=== PATIENT | female | born 1960 | race Caucasian/White ===

== ENCOUNTER 2018-12-13 17:01 | Observation (INO) | payer BC ==
--- OUTSIDE RECORDS SUMMARY | 2018-12-13 17:03 | XMS REPORT | Clinical Summary ---
:1960 Author Organization [facility] Address [address] [place] [address] Care Team Providers Name Role Phone Unavailable Primary Care Provider Unavailable Allergies No Known Allergies Medications Medication Sig Dispensed Refills Start Date End Date Status lisinopril Take 20 mg by 0 Active (PRINIVIL,ZESTRIL) 20 MG mouth daily. tablet atorvastatin (LIPITOR) Take 20 mg by 0 Active 20 MG tablet mouth daily. Active Problems Problem Noted Date Chest pain 02/15/2018 Encounters Date Type Specialty Care Team Description 02/16/2018 Orders Only General Internal Medicine 02/15/2018 - Hospital Encounter Cardiology [place], Chest pain, unspecified type; 02/16/2018 Amaris Cameron, Essential hypertension; Hyperlipidemia, unspecified hyperlipidemia type after 12/12/2017 Family History Medical History Relation Name Comments Hypertension Mother Relation Name Status Comments Father Cardiomegaly Mother Social History Tobacco Use Types Packs/Day Years Used Date Never Smoker Smokeless Tobacco: Never Used Alcohol Use Drinks/Week oz/Week Comments Yes 2-3 cans of beer a day Sex Assigned at Date Recorded Not on file Job Start Date Occupation Industry Not on file Not on file Not on file Travel History Travel Start Travel End No recent travel history available. Last Filed Vital Signs Vital Sign Reading Time Taken Blood Pressure 123/75 02/16/2018 5:07 PM [employer] Pulse 80 02/16/2018 5:07 PM [employer] Temperature 36.4 C (97.5 F) 02/16/2018 5:07 PM [employer] Respiratory Rate 18 02/16/2018 5:07 PM [employer] Oxygen Saturation 98% 02/16/2018 5:07 PM [employer] Inhaled Oxygen Concentration - - Weight 68.3 kg (150 lb 8 oz) 02/16/2018 7:49 AM [employer] Height 162.6 cm (5' 4") 02/16/2018 4:00 PM [employer] Body Mass Index 25.83 02/16/2018 7:49 AM [employer] Plan of Treatment Not on file Procedures Procedure Name Priority Date/Time Associated Comments Diagnosis RHYTHM STRIP - SCAN 07/27/2018 3:21 PM CDT REPORT OF PROCEDURE - 02/17/2018 1:10 ENDOSCOPY SCAN PM [employer] RHYTHM STRIP - SCAN 02/17/2018 1:10 PM [employer] ECHOCARDIOGRAM REPORT - 02/17/2018 10:50 SCAN AM [employer] ECHO W CONTRAST & LEONCIO 02/16/2018 4:07 Results for this DOPPLER PM [employer] procedure are in the results section. NM MYOCARDIAL PERFUSION Routine 02/16/2018 12:17 Results for this SPECT(TREADMILL) PM [employer] procedure are in the results section. TREADMILL Routine 02/16/2018 10:47 Results for this TOLERANCE(NON-NUCLEAR AM [employer] procedure are in TREADMILL) the results section. ECG 12-LEAD Routine 02/16/2018 10:47 Results for this AM [employer] procedure are in the results section. ECG 12-LEAD Routine 02/16/2018 10:47 AM [employer] Procedure Note - Interface, External Ris In - 02/16/2018 11:11 AM [employer] Ventricular Rate 75 BPM Atrial Rate 75 BPM P-R Interval 168 ms QRS Duration 86 ms Q-T Interval 392 ms QTC Calculation(Bazett) 437 ms P Cummings 55 degrees R Cummings 69 degrees T Cummings 65 degrees Normal sinus rhythm Normal ECG CBC W/PLT COUNT & AUTO Routine 02/16/2018 4:46 AM [employer] Results for this DIFFERENTIAL procedure are in the results section. TROPONIN I Routine 02/16/2018 4:46 AM [employer] CBC W/PLT COUNT & AUTO Routine 02/16/2018 4:46 AM [employer] Results for this DIFFERENTIAL procedure are in the results section. HEMOGLOBIN A1C Routine 02/16/2018 4:46 AM [employer] LIPID PANEL Routine 02/16/2018 4:46 AM [employer] BASIC METABOLIC PANEL (7) Routine 02/16/2018 4:46 AM [employer] POTASSIUM Routine 02/16/2018 12:30 AM [employer] TROPONIN I Routine 02/16/2018 12:30 AM [employer] SERVICER after 12/12/2017 Results RHYTHM STRIP - SCAN (07/27/2018 3:21 PM CDT)Only the most recent of2 resultswithin the time period is included. Narrative Performed At EKG-SCANNED (02/17/2018 1:10 PM [employer]) Narrative Performed At ECHOCARDIOGRAM REPORT - SCAN (02/17/2018 10:50 AM [employer] SERVICER) Narrative Performed At ECHO W CONTRAST & DOPPLER (02/16/2018 4:07 PM [employer] SERV[employer]) Ejection Fraction [facility] Specimen Narrative Performed At Transthoracic Echocardiography Report (TTE) [facility] Demographics Patient NameBENNETT,Date of Study 02/16/2018 PALLAVI Female Visit [id number] Room Number 1151 Number Date of 1960Referring Amaris Coughlin MD Physician 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 Clinical History HGB 13.5 HCT 39.2 % CP, HTN, HLD, PALPITATIONS Height: 64 inches Weight: 68.04 kg (150 lbs) BSA: 1.73 m^2 BMI: 25.75 kg/m^2 HR: 78 bpm BP: 112/74 mmHg Summary The left ventricle is chamber size (by vol index) is normal. Normal LV wall thickness. All of the LV segments contract normally . LVEF by Whaley's method of disk assessment is normal (>60%) . Normal diastolic function. No pericardial effusion is visualized. The estimated RA pressure by IVC dynamics 0-5mmHg . The right ventricular chamber size and systolic function are within normal limits. TV is not well visualized. No evidence of tricuspid regurgitation. Unable to estimate peak systolic PA pressure; inadequate TR velocity signal. Signature Findings Rhythm/BPRegular sinus rhythm during the exam. Left Ventricle The left ventricle is chamber size (by vol index) is normal. No rmal LV wall thickness. Al l of the LV segments contract normally . LV EF by Whaley's method of disk assessment is no rmal (>60%) . No rmal diastolic function. Left AtriumLA size is normal . Right VentricleThe right ventricular chamber size and systolic fu nction are within normal limits. Right Atrium RA size is normal. Aortic Valve Normal AoV structure. No evidence of aortic regurgitation. No evidence of aortic stenosis. Mitral Valve Mild MV leaflet thickening. No evidence of mitral regurgitation. Tricuspid ValveTV is not well visualized. No evidence of tricuspid regurgitation. Un able to estimate peak systolic PA pressure; in adequate TR velocity signal. Pulmonic Valve PV is not well visualized. A trace of pulmonary regurgitation. AortaAortic root size (SInus of Valsalva diameter) is no rmal . Pr oximal ascending aorta size is normal . PericardiumNo pericardial effusion is visualized. IVC/SVC/PA/PV/PleuralThe estimated RA pressure by IVC dynamics 0-5mmHg . Chambers/Structures Left Atrium LA Volume: 39.44 ml LA Area: 13.85 cm^2 LA Vol. Index: 23 ml/m^2 Left Ventricle LVIDd: 3.51 cm LVIDs: 1.9 cm LV Septum Diastolic: 1.1 cm LV PW Diastolic: 1.01 cm LV FS: 45.9 % LVEDV Whaley's:56.28 ml LVESV Whaley's:18.56 ml LVEDVI: 33 ml/m^2 LVEF Hwaley's: 67 % LVESVI: 11 ml/m^2 LVOT Diameter: 2.04 cm Doppler/Quantitative Measurements Mitral Valve MV Peak E-Wave: 0.74 m/sMV Peak A-Wave: 0.7 m/s E/A Ratio: 1.07 Peak Gradient: 2.21 mmHg MV Konstantin. Peak: Tissue Doppler E' Lateral Velocity: 0.12 m/s E/E': 6.31 Aortic Valve Peak Velocity: 1.16 m/sMean Velocity: 0.74 m/s Peak Gradient: 5.36 mmHg Mean Gradient: 2.51 mmHg AV Area (continuity): 3.41 cm^2 AV VTI: 17.35 cm AV DVI: 1.04 LVOT Peak Velocity: 1.03 m/s Peak Gradient: 4.23 mmHg Mean Velocity: 0.69 m/s Mean Gradient: 2.19 mmHg LVOT Diameter: 2.04 cmLVOT VTI: 18.13 cm LVOT Area: 3.27 cm^2LVOT SV:59.23 ml LVOT CO: 4.62 l/min LVOT CI: 2.67 l/min/m^2 Procedure Note Interface, External Ris In - 02/17/2018 10:17 AM [employer] Transthoracic Echocardiography Report (TTE) Demographics Patient Name TOMER, Date of Study 02/16/2018 PALLAVI Gender Female Visit Number [id number] Race Room Number 1151 Number Date of 1960 Referring Amaris Coughlin MD Physician 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 Clinical History HGB 13.5 HCT 39.2 % CP, HTN, HLD, PALPITATIONS Height: 64 inches Weight: 68.04 kg (150 lbs) BSA: 1.73 m^2 BMI: 25.75 kg/m^2 HR: 78 bpm BP: 112/74 mmHg Summary The left ventricle is chamber size (by vol index) is normal. Normal LV wall thickness. All of the LV segments contract normally . LVEF by Whaley's method of disk assessment is normal (>60%) . Normal diastolic function. No pericardial effusion is visualized. The estimated RA pressure by IVC dynamics 0-5mmHg . The right ventricular chamber size and systolic function are within normal limits. TV is not well visualized. No evidence of tricuspid regurgitation. Unable to estimate peak systolic PA pressure; inadequate TR velocity signal. Signature Findings Rhythm/BP Regular sinus rhythm during the exam. Left Ventricle The left ventricle is chamber size (by vol index) is normal. Normal LV wall thickness. All of the LV segments contract normally . LVEF by Whaley's method of disk assessment is normal (>60%) . Normal diastolic function. Left Atrium LA size is normal . Right Ventricle The right ventricular chamber size and systolic function are within normal limits. Right Atrium RA size is normal. Aortic Valve Normal AoV structure. No evidence of aortic regurgitation. No evidence of aortic stenosis. Mitral Valve Mild MV leaflet thickening. No evidence of mitral regurgitation. Tricuspid Valve TV is not well visualized. No evidence of tricuspid regurgitation. Unable to estimate peak systolic PA pressure; inadequate TR velocity signal. Pulmonic Valve PV is not well visualized. A trace of pulmonary regurgitation. Aorta Aortic root size (SInus of Valsalva diameter) is normal . Proximal ascending aorta size is normal . Pericardium No pericardial effusion is visualized. IVC/SVC/PA/PV/Pleural The estimated RA pressure by IVC dynamics 0-5mmHg . Chambers/Structures Left Atrium LA Volume: 39.44 ml LA Area: 13.85 cm^2 LA Vol. Index: 23 ml/m^2 Left Ventricle LVIDd: 3.51 cm LVIDs: 1.9 cm LV Septum Diastolic: 1.1 cm LV PW Diastolic: 1.01 cm LV FS: 45.9 % LVEDV Whaley's:56.28 ml LVESV Whaley's:18.56 ml LVEDVI: 33 ml/m^2 LVEF Whaley's: 67 % LVESVI: 11 ml/m^2 LVOT Diameter: 2.04 cm Doppler/Quantitative Measurements Mitral Valve MV Peak E-Wave: 0.74 m/s MV Peak A-Wave: 0.7 m/s E/A Ratio: 1.07 Peak Gradient: 2.21 mmHg MV Konstantin. Peak: Tissue Doppler E' Lateral Velocity: 0.12 m/s E/E': 6.31 Aortic Valve Peak Velocity: 1.16 m/s Mean Velocity: 0.74 m/s Peak Gradient: 5.36 mmHg Mean Gradient: 2.51 mmHg AV Area (continuity): 3.41 cm^2 AV VTI: 17.35 cm AV DVI: 1.04 LVOT Peak Velocity: 1.03 m/s Peak Gradient: 4.23 mmHg Mean Velocity: 0.69 m/s Mean Gradient: 2.19 mmHg LVOT Diameter: 2.04 cm LVOT VTI: 18.13 cm LVOT Area: 3.27 cm^2 LVOT SV:59.23 ml LVOT CO: 4.62 l/min LVOT CI: 2.67 l/min/m^2 Performing Organization Address City/State/Zipcode Phone Number [facility] myocardial perfusion SPECT(Treadmill) (02/16/2018 12:17 PM SE[employer]IC [employer]ANK SERVICER) Specimen Narrative Performed At FINAL REPORT [employer] PROCEDURE: Rest/Stress MYOCARDIAL PERFUSION SPECT with treadmill\\XA9\\ CPT CODE: 57431 INDICATION:Chest pain, chronic, high probability of CAD HISTORY:Recent cardiac symptoms: Chest pain. Current cardiovascular-related medications: Atorvastatin, lisinopril. PROTOCOL:10.3 mCi of Tc-99m sestamibi was injected iv at rest, and SPECT (tomographic) images were obtained. Also, 32.8 mCi of Tc-99m sestamibi was injected iv approximately one minute prior to peak exercise, and gated SPECT images were obtained. PRELIMINARY STRESS TEST DATA FROM NONINVASIVE CARDIOLOGY: The patient exercised for 6 minutes 40 seconds using the Rell treadmill protocol. Heart rate was 76 beats/min at rest; peak heart rate was 173 beats/min (107% of MPHR). BP was 123/73 mmHg at rest; peak BP was 182/75 mmHg. Exercise was stopped for fatigue. The patient experienced no symptoms; treatment was not required. Preliminary ECG evaluation revealed sinus rhythm at rest and no ischemic changes with stress. (Final ECG interpretation and other stress and monitoring data are reported separately by Cardiology.) IMAGING FINDINGS: Study quality is adequate. Images obtained after rest and stress injections show normal LV activity. LV and RV volumes appear normal. Gated images obtained at rest and with stress show normal LV wall motion and thickening. LVEF at rest is greater than 70%. LVEF at stress is greater than 70%. IMPRESSION: 1. Normal study.2. Adequate exercise stress.3. Normal myocardial perfusion.4. Normal resting LV function. 5. Normal extracardiac tracer distribution.6. No previous [facility] study for comparison. Signed: Ina Simmons MD Report Verified Date/Time:02/16/2018 16:41:31 Reading Location: [place] [id number] Reading Room Procedure Note Interface, External Ris In - 02/16/2018 4:43 PM [employer] SERVICER FINAL REPORT PROCEDURE: Rest/Stress MYOCARDIAL PERFUSION SPECT with treadmill\\XA9\\ CPT CODE: 20171 INDICATION: Chest pain, chronic, high probability of CAD HISTORY: Recent cardiac symptoms: Chest pain. Current cardiovascular-related medications: Atorvastatin, lisinopril. PROTOCOL: 10.3 mCi of Tc-99m sestamibi was injected iv at rest, and SPECT (tomographic) images were obtained. Also, 32.8 mCi of Tc-99m sestamibi was injected iv approximately one minute prior to peak exercise, and gated SPECT images were obtained. PRELIMINARY STRESS TEST DATA FROM NONINVASIVE CARDIOLOGY: The patient exercised for 6 minutes 40 seconds using the Rell treadmill protocol. Heart rate was 76 beats/min at rest; peak heart rate was 173 beats/min (107% of MPHR). BP was 123/73 mmHg at rest; peak BP was 182/75 mmHg. Exercise was stopped for fatigue. The patient experienced no symptoms; treatment was not required. Preliminary ECG evaluation revealed sinus rhythm at rest and no ischemic changes with stress. (Final ECG interpretation and other stress and monitoring data are reported separately by Cardiology.) IMAGING FINDINGS: Study quality is adequate. Images obtained after rest and stress injections show normal LV activity. LV and RV volumes appear normal. Gated images obtained at rest and with stress show normal LV wall motion and thickening. LVEF at rest is greater than 70%. LVEF at stress is greater than 70%. IMPRESSION: 1. Normal study. 2. Adequate exercise stress. 3. Normal myocardial perfusion. 4. Normal resting LV function. 5. Normal extracardiac tracer distribution. 6. No previous [facility] study for comparison. Signed: Ina Simmons MD Report Verified Date/Time: 02/16/2018 16:41:31 Reading Location: [place] [id number] Reading Room Performing Organization Address City/State/Zipcode Phone Number GE RIS Treadmill tolerance(Non-Nuclear Treadmill) (02/16/2018 10:47 AM SE[employer] SERVICER) Specimen Narrative Performed At Protocol Name RELL GE MUSE Time In Exercise Phase 00:06:40 Max. Systolic BP 182 mmHg Max Diastolic BP 75 mmHg Max Heart Rate 173 BPM Max Predicted Heart Rate 161 BPM Reason For Termination Fatigue Reason for Test Chest Pain Target HR Formula (220 - Age)*100% Arrhythmias none Resting ECG Normal sinus rhythm ST Changes No Significant Changes Overall Impression No Evidence of Schemia Chest Pain none HR Response To Exercise appropriate BP Response To Exercise APPROPRIATE RESPONSE Functional Capacity Good-based on age-adjusted MET level achieved Lisinopril, Atervastatin Confirmed by fellow Dot Cabrera ([id number]) on 02/16/2018 11:27:15 AM Confirmed by MD LOPEZ YOCHAI ([id number]) on 02/28/2018 12:55:15 PM Procedure Note Interface, External Ris In - 02/28/2018 12:55 PM [employer]ICER Protocol Name RELL Time In Exercise Phase 00:06:40 Max. Systolic BP 182 mmHg Max Diastolic BP 75 mmHg Max Heart Rate 173 BPM Max Predicted Heart Rate 161 BPM Reason For Termination Fatigue Reason for Test Chest Pain Target HR Formula (220 - Age)*100% Arrhythmias none Resting ECG Normal sinus rhythm ST Changes No Significant Changes Overall Impression No Evidence of Schemia Chest Pain none HR Response To Exercise appropriate BP Response To Exercise APPROPRIATE RESPONSE Functional Capacity Good-based on age-adjusted MET level achieved Lisinopril, Atervastatin Confirmed by fellow Dot Cabrera ([id number]) on 02/16/2018 11:27:15 AM Confirmed by MD LOPEZ YOCHAI ([id number]) on 02/28/2018 12:55:15 PM Performing Organization Address [facility] Phone Number GE MUSE ECG 12 lead (02/16/2018 10:47 AM SE[employer]IC [employer] SERVICER) Specimen Narrative Performed At Ventricular Rate 75 BPM GE MUSE Atrial Rate 75 BPM P-R Interval 168 ms QRS Duration 86 ms Q-T Interval 392 ms QTC Calculation(Bazett) 437 ms P Cummings 55 degrees R Cummings 69 degrees T Cummings 65 degrees Normal sinus rhythm Normal ECG Confirmed by MD BLANCA, IHAB ([id number]) on 02/17/2018 6:13:32 AM Procedure Note Interface, External Ris In - 02/17/2018 6:13 AM SE[employer] T[employer] SERVICER Ventricular Rate 75 BPM Atrial Rate 75 BPM P-R Interval 168 ms QRS Duration 86 ms Q-T Interval 392 ms QTC Calculation(Bazett) 437 ms P Cummings 55 degrees R Cummings 69 degrees T Cummings 65 degrees Normal sinus rhythm Normal ECG Confirmed by MD BLANCA, IHAB ([id number]) on 02/17/2018 6:13:32 AM Performing Organization Address [facility] Phone Number GE MUSE CBC with platelet count + automated diff (02/16/2018 4:46 AM SE[employer]IC TANK SERVICER) WBC 6.8 3.5 - 10.5 K/L [facility] RBC 4.24 3.93 - 5.22 M/L [facility] Hemoglobin 13.5 11.2 - 15.7 GM/DL [facility] Hematocrit 39.2 34.1 - 44.9 % [facility] MCV 92.5 79.4 - 94.8 fL [facility] MCH 31.8 25.6 - 32.2 pg [facility] MCHC 34.4 32.2 - 35.5 GM/DL [facility] RDW 11.4 (L) 11.7 - 14.4 % [facility] Platelets 248 150 - 450 K/CU MM [facility] MPV 10.6 9.4 - 12.3 fL [facility] nRBC 0 0 - 0 /100 WBC [facility] % Neutros 50 % [facility] % Lymphs 39 % [facility] % Monos 8 % [facility] % Eos 2 % [facility] % Baso 0 % [facility] # Neutros 3.37 1.56 - 6.13 K/L [facility] # Lymphs 2.66 1.18 - 3.74 K/L [facility] # Monos 0.56 (H) 0.24 - 0.36 K/L [facility] # Eos 0.11 0.04 - 0.36 K/L [facility] # Baso 0.03 0.01 - 0.08 K/L [facility] Immature Granulocytes-Relative 0 0 - 1 % [facility] Specimen Blood Performing Organization Address City/[facility] Phone Number [address] [address] [place] Troponin I (02/16/2018 4:46 AM SE[employer]IC TANK SERVICER)Only the most recent of2 resultswithin the time period is included. Troponin I <0.01 0.00 - 0.03 ng/mL [facility] Specimen Blood Performing Organization Address City/State/Zipcode Phone Number [address] [address] [phone] CENTER Hemoglobin A1c (02/16/2018 4:46 AM SE[employer]IC TANK SERVICER) Hemoglobin A1C 5.3 4.3 - 6.1 % [facility] Specimen Blood Performing Organization Address City/[facility]/Zipcode Phone Number [address] [address] [place] Lipid panel (02/16/2018 4:46 AM SE[employer]IC TANK SERVICER) Triglycerides 147 mg/dL [facility] Cholesterol 181 mg/dL [facility] HDL 33 mg/dL [facility] LDL Calculated 119 mg/dL [facility] Specimen Blood Narrative Performed At Triglyceride Reference Range: [facility] Low Risk <150 [id number] High Risk 200-499 Very High Risk>=500 Cholesterol Reference Range: Low Risk <200 [id number] High Risk>240 HDL Cholesterol Reference Range: Low Risk >=60 High Risk <40 LDL Cholesterol Reference Range: Optimal<100 Near [id number] Very High >=190 Performing Organization Address City/[facility] Phone Number [address] [address] CENTER Basic metabolic panel (02/16/2018 4:46 AM SE[employer]IC TANK SERVICER) Sodium 137 136 - 145 meq/L [facility] Potassium 3.7 3.5 - 5.1 meq/L [facility] Chloride 105 98 - 107 meq/L [facility] CO2 23 22 - 29 meq/L [facility] BUN 14 7 - 21 mg/dL [facility] Creatinine 0.72 0.57 - 1.25 mg/dL [facility] Glucose 85 70 - 105 mg/dL [facility] Calcium 9.0 8.4 - 10.2 mg/dL [facility] EGFR 83Comment: ESTIMATED GFR IS mL/min/1.73 sq m [facility] NOT ACCURATE [facility] CLEARANCE IN PREDICTING GLOMERULAR FILTRATION RATE. ESTIMATED GFR IS NOT APPLICABLE FOR DIALYSIS PATIENTS. Specimen Blood Performing Organization Address City/State/Zipcode Phone Number [address] [address] [phone] CENTER Potassium (02/16/2018 12:30 AM SE[employer]IC TANK SERVICER) Potassium 3.5 3.5 - 5.1 meq/L [facility] CENTER Specimen Blood Performing Organization Address City/State/Zipcode Phone Number [facility] [address] [place] [address] CENTER after 12/12/2017 Insurance Payer Benefit Plan / Subscriber ID Type Phone Address Group BLUE CROSS/BLUE BCBS FED xxxxxxxxx PPO [phone] [address] [place] [address] [employer] - MGD CARE [employer] HMO POS xxxxxxxxxx HMO/POS QPOS Advance Directives For more information, please contact:[facility] [place] [address] [phone] Code Status Date Activated Date Inactivated Comments Full Code 02/15/2018 11:13 PM This code status was determined by: Patient
--- OUTSIDE RECORDS SUMMARY | 2018-12-13 17:04 | XMS REPORT ---
:1960 [facility] [address] [place] [address] Care Team Providers Name Role Phone JOHNNIE POSEY Unavailable Unavailable Problems This patient has no known problems. Allergies, Adverse Reactions, Alerts This patient has no known allergies or adverse reactions. Medications This patient has no known medications. Results Test Description Test Time Test Comments Text Results Atomic Results Result Comments [facility], 2018-02-16 Reason for FINAL REPORT PATIENT ID: MULTI, SPECT 16:41:00 exam:->Chest Pain [id number] PROCEDURE: Rest/Stress MYOCARDIAL PERFUSION SPECT with treadmill\XA9\ CPT CODE: 54931 INDICATION: Chest pain, chronic, high probability of [...] Normal extracardiac tracer distribution. 6. No previous [facility] study for comparison. Signed: Ina Curtis MDReport Verified Date/Time: 02/16/2018 16:41:31 Reading Location: [address] Reading Room GLOBIN A1C 2018-02-16 11:58:00 Test Item Value Reference Range Comments HEMOGLOBIN A1C (BEAKER) (test irvl=440) 5.3 % 4.3-6.1 LIPID [id number] 06:49:00 Test Item Value Reference Range Comments TRIGLYCERIDES (BEAKER) (test mtya=167) 147 mg/dL CHOLESTEROL (BEAKER) (test mklz=721) 181 mg/dL HDL CHOLESTEROL (BEAKER) (test mbwh=221) 33 mg/dL LDL CHOLESTEROL CALCULATED (BEAKER) (test 119 mg/dL mhra=983) Triglyceride Reference Range: Low Risk <150 Borderline 150- 199 High Risk 200-499 Very High Risk >=500Cholesterol Reference Range: Low Risk <200 Borderline 200-239 High Risk > 240HDL Cholesterol Reference Range: Low Risk >=60 High Risk <40LDL Cholesterol Reference Range: Optimal <100 Near Optimal 100-129 Borderline 130-159 High 160-189 Very High >=190BASI METABOLIC [id number] 06:49:00 Test Item Value Reference Range Comments SODIUM (BEAKER) (test 137 meq/L 136-145 pvkv=876) POTASSIUM (BEAKER) (test 3.7 meq/L 3.5-5.1 penr=450) CHLORIDE (BEAKER) (test 105 meq/L 98-107 clfc=261) CO2 (BEAKER) (test 23 meq/L 22-29 vpzw=447) BLOOD UREA NITROGEN 14 mg/dL 7-21 (BEAKER) (test ewqc=329) CREATININE (BEAKER) (test 0.72 mg/dL 0.57-1.25 vboj=016) GLUCOSE RANDOM (BEAKER) 85 mg/dL 70-105 (test hhfu=953) CALCIUM (BEAKER) (test 9.0 mg/dL 8.4-10.2 urku=278) EGFR (BEAKER) (test 83 mL/min/1.73 sq m ESTIMATED GFR IS NOT ysjp=2044) ACCURATE CREATININE CLEARANCE IN PREDICTING GLOMERULAR FILTRATION RATE. ESTIMATED GFR IS NOT APPLICABLE FOR DIALYSIS PATIENTS. TROPONIN [id number] 06:28:00 Test Item Value Reference Range Comments TROPONIN I (BEAKER) (test glaw=442) < ng/mL 0.00-0.03 CBC W/PLT COUNT & AUTO [id number] 05:34:00 Test Item Value Reference Range Comments WHITE BLOOD CELL COUNT (BEAKER) (test pqih=323) 6.8 K/ L 3.5-10.5 RED BLOOD CELL COUNT (BEAKER) (test vbik=049) 4.24 M/ L 3.93-5.22 HEMOGLOBIN (BEAKER) (test eqhq=371) 13.5 GM/DL 11.2-15.7 HEMATOCRIT (BEAKER) (test gyxh=291) 39.2 % 34.1-44.9 MEAN CORPUSCULAR VOLUME (BEAKER) (test mgie=754) 92.5 fL 79.4-94.8 MEAN CORPUSCULAR HEMOGLOBIN (BEAKER) (test 31.8 pg 25.6-32.2 cnnl=558) MEAN CORPUSCULAR HEMOGLOBIN CONC (BEAKER) (test 34.4 GM/DL 32.2-35.5 bdne=125) RED CELL DISTRIBUTION WIDTH (BEAKER) (test 11.4 % 11.7-14.4 fujb=314) PLATELET COUNT (BEAKER) (test rnih=774) 248 K/CU MM 150-450 MEAN PLATELET VOLUME (BEAKER) (test kmmh=558) 10.6 fL 9.4-12.3 NUCLEATED RED BLOOD CELLS (BEAKER) (test 0 /100 WBC 0-0 veqd=975) NEUTROPHILS RELATIVE PERCENT (BEAKER) (test 50 % dnyc=787) LYMPHOCYTES RELATIVE PERCENT (BEAKER) (test 39 % ffcb=997) MONOCYTES RELATIVE PERCENT (BEAKER) (test 8 % zrwk=974) EOSINOPHILS RELATIVE PERCENT (BEAKER) (test 2 % lufq=119) BASOPHILS RELATIVE PERCENT (BEAKER) (test 0 % uymx=076) NEUTROPHILS ABSOLUTE COUNT (BEAKER) (test 3.37 K/ L 1.56-6.13 gqvl=065) LYMPHOCYTES ABSOLUTE COUNT (BEAKER) (test 2.66 K/ L 1.18-3.74 gvks=877) MONOCYTES ABSOLUTE COUNT (BEAKER) (test 0.56 K/ L 0.24-0.36 rtix=830) EOSINOPHILS ABSOLUTE COUNT (BEAKER) (test 0.11 K/ L 0.04-0.36 rmzi=616) BASOPHILS ABSOLUTE COUNT (BEAKER) (test 0.03 K/ L 0.01-0.08 vlut=464) IMMATURE GRANULOCYTES-RELATIVE PERCENT (BEAKER) 0 % 0-1 (test gubv=2811) TROPONIN [id number] 01:36:00 Test Item Value Reference Range Comments TROPONIN I (BEAKER) (test ofhl=962) < ng/mL 0.00-0.03 [id number] 01:21:00 Test Item Value Reference Range Comments POTASSIUM (BEAKER) (test iotc=730) 3.5 meq/L 3.5-5.1
[2018-12-13 17:46] LABS: Basophils % 0.6 % (0-1.3); Hematocrit 41.2 % (36.0-45.0); Lymphocytes % 24.6 % (15.3-44.8); MPV 8.6 fL (7.6-11.3); RBC Red Blood Cell Count 4.49 M/uL (3.86-4.86)
--- NOTE | 2018-12-13 17:48 | RAD REPORT ---
EXAM DESCRIPTION: RAD - Chest Single View - 12/13/2018 5:41 pm CLINICAL HISTORY: CHEST PAIN Chest pain. COMPARISON: CHEST SINGLE VIEW dated 08/17/2011 FINDINGS: Portable technique limits examination quality. The lungs are grossly clear. The heart is normal in size. No displaced fractures. IMPRESSION: No acute intrathoracic process suspected.
[2018-12-13 17:55] LABS: Protime INR 0.96
[2018-12-13 18:08] LABS: ALT/SGPT 50 U/L (12-78); AST/SGOT 30 U/L (15-37); Albumin 4.3 g/dL (3.4-5.0); Alkaline Phosphatase 63 U/L (45-117); BUN Blood Urea Nitrogen 7 mg/dL (7-18); Bicarbonate 25 mmol/L (21-32); Bilirubin Direct 0.2 mg/dL (0-0.2); Glucose Level 93 mg/dL (74-106); Magnesium 1.9 mg/dL (1.8-2.4); NT PRO-BNP 41 pg/mL (<125); Potassium 3.1 mmol/L (3.5-5.1); Protein, Total 7.4 g/dL (6.4-8.2); Sodium Level 130 mmol/L (136-145); Troponin (Emerg Dept Use Only) < 0.02 ng/mL (0.0-0.045)
[2018-12-13] MEDS ORDERED: NA CHLORIDE 0.9% 1,000 ML with POTASSIUM CL 40 MEQ IV SCH ×2 (19:00)
--- NOTE | 2018-12-13 20:15 | ER ---
Nurse's Notes [facility] Name: Pallavi Jimenez Age: 58 yrs Sex: Female : 1960 Arrival Date: 12/13/2018 Time: 17:05 Bed 2 Private MD: Nancy Smith H Diagnosis: Palpitations;Hypokalemia Presentation: 12/13 17:31 Presenting complaint: Patient states: has been feeling palpitations since noon, no hx iw of irregular heart rate, denies chest pain, states she feels nauseous at times and just feels weird. Transition of care: patient was not received from another setting of care. Onset of symptoms was December 13, 2018. Risk Assessment: Do you want to hurt yourself or someone else? Patient reports no desire to harm self or others. Initial Sepsis Screen: Does the patient meet any 2 criteria? No. Patient's initial sepsis screen is negative. Does the patient have a suspected source of infection? No. Patient's initial sepsis screen is negative. Care prior to arrival: None. 17:31 Method Of Arrival: Wheelchair iw 17:31 Acuity: JENNY 3 iw Historical: - Allergies: 17:39 No Known Allergies; iw - Home Meds: 17:39 lisinopril 20 mg Oral tab 1 tab once daily [Active]; atorvastatin 40 mg oral tab 1 tab iw once daily [Active]; - PMHx: 17:39 Hypertension; Hyperlipidemia; iw - PSHx: 17:39 Tubal ligation; uterine ablation; iw - Immunization history:: Adult Immunizations not up to date. - Social history:: Smoking status: Patient/guardian denies using tobacco. - Ebola Screening: : Patient negative for fever greater than or equal to 101.5 degrees Fahrenheit, and additional compatible Ebola Virus Disease symptoms Patient denies exposure to infectious person Patient denies travel to an Ebola-affected area in the 21 days before illness onset No symptoms or risks identified at this time. Screenin:47 Abuse screen: Denies threats or abuse. Nutritional screening: No deficits noted. aa5 Tuberculosis screening: No symptoms or risk factors identified. Fall Risk None identified. Assessment: 17:40 General: Appears comfortable, Behavior is calm, cooperative. Pain: Denies pain. Neuro: aa5 Level of Consciousness is awake, alert, obeys commands, Oriented to person, place, time, situation. Cardiovascular: Reports palpitations, Heart tones S1 S2 present Edema is absent. Rhythm is sinus rhythm. Respiratory: Airway is patent Respiratory effort is even, unlabored, Respiratory pattern is regular, symmetrical, Breath sounds are clear bilaterally. Denies cough, shortness of breath. GI: Abdomen is round non-distended, Bowel sounds present X 4 quads. Abd is soft and non tender X 4 quads. Reports diarrhea, nausea, since today Patient currently denies vomiting. : No signs and/or symptoms were reported regarding the genitourinary system. EENT: No signs and/or symptoms were reported regarding the EENT system. Derm: Skin is pink, warm \\T\\ dry. Musculoskeletal: Range of motion: intact in all extremities. 19:25 Reassessment: Patient appears in no apparent distress at this time. Patient is alert, lp1 oriented x 3, equal unlabored respirations, skin warm/dry/pink. States "I still have that weird fluttering feeling in my chest" Patient denies pain at this time. Cardiovascular: Rhythm is sinus rhythm. 20:00 Reassessment: Patient appears in no apparent distress at this time. Assisted patient to lp1 bathroom via WC at this time; aware of pending admission. Vital Signs: 17:39 BP 169 / 91; Pulse 87; Resp 18 S; Temp 98.2; Pulse Ox 100% on R/A; iw 19:25 BP 122 / 75; Pulse 86; Resp 18; Pulse Ox 95% on R/A; Weight 68.04 kg (R); Pain 0/10; lp1 20:15 BP 140 / 76; Pulse 81; Resp 19; Pulse Ox 95% on R/A; lp1 21:14 BP 131 / 81; Pulse 76; Resp 20; Pulse Ox 97% on R/A; Pain 0/10; lp1 ED Course: 17:05 Patient arrived in ED. ag5 17:05 Nancy Smith DO is Private Physician. ag5 17:28 Jade Pena, SHERINE is Primary Nurse. aa5 17:37 Triage completed. iw 17:40 Initial lab(s) drawn, by me, sent to lab. Missed attempt(s): 20 gauge in right aa5 antecubital area. Bleeding controlled, band aid applied, catheter tip intact. 17:40 Arm band placed on Patient placed in an exam room, on a stretcher. aa5 17:40 Patient has correct armband on for positive identification. Placed in gown. Bed in low aa5 position. Call light in reach. Side rails up X2. range feeder on. Pulse ox on. NIBP on. 17:41 Vesta Avila FNP-C is PHCP. snw 17:41 Andry Alvarado MD is Attending Physician. snw 17:43 XRAY Chest (1 view) In Process Unspecified. EDMS 17:44 Inserted saline lock: 20 gauge in left antecubital area, using aseptic technique. Blood aa5 collected. 17:45 EKG done, by gis technician. reviewed by Vesta VARGAS. 3 17:48 No provider procedures requiring assistance completed. Patient maintains SpO2 aa5 saturation greater than 95% on room air. 19:00 Report given to SHERINE Arguelles and SHERINE Bradley. aa5 20:13 Talat Ortega MD is Hospitalizing Provider. snw 21:14 Patient admitted, IV remains in place. lp1 Administered Medications: 18:57 Drug: NS 0.9% with KCl 40 mEq/L 1000 ml Route: IV; Rate: 125 ml/hr; Site: left aa5 antecubital; 21:20 Follow up: IV Status: Infusion continued upon admission lp1 Outcome: 20:13 Decision to Hospitalize by Provider. snw 20:19 Condition: good lp1 20:19 Instructed on the need for admit. 21:14 Admitted to Tele via wheelchair, room 409, with chart, Report called to SHERINE Zhang lp1 21:26 Patient left the ED. lp1 Signatures: Dispatcher [employer] EDID Vesta Avila FNP-C FRONT LINE SUPERVISOR-Csnw Joanne Bernardo RN RN iw Jade Pena RN RN aa5 Mirna Richardson RN RN lp1 Erin Nunez 3 Raymundo Hernandez [facility]
--- NOTE | 2018-12-13 20:16 | EDPHYS ---
Physician Documentation [facility] Name: Pallavi Jimenez Age: 58 yrs Sex: Female : 1960 Arrival Date: 12/13/2018 Time: 17:05 Bed 2 Private MD: Nancy Smith H ED Physician Andry Alvarado HPI: 12/13 17:55 This 58 yrs old Female presents to ER via Wheelchair with complaints of snw Irregular Pulse. 17:55 Onset: The symptoms/episode began/occurred suddenly, this morning. Associated signs and snw symptoms: Pertinent positives: nausea. Modifying factors: The patient symptoms are alleviated by nothing. The patient has experienced a previous episode, in February of last year. Pt had stress test, echo, and carotid eval. Pt saw Dr. Lopez. Has not seen cardiology since that time.. The patient has not recently seen a physician, the patient's primary care provider is Dr. Dr. Smith. Pt states she was supposed to go to [employer] today but felt off and palpitations, indigestion feeling did not go away. Historical: - Allergies: 17:39 No Known Allergies; iw - Home Meds: 17:39 lisinopril 20 mg Oral tab 1 tab once daily [Active]; atorvastatin 40 mg oral tab 1 tab iw once daily [Active]; - PMHx: 17:39 Hypertension; Hyperlipidemia; iw - PSHx: 17:39 Tubal ligation; uterine ablation; iw - Immunization history:: Adult Immunizations not up to date. - Social history:: Smoking status: Patient/guardian denies using tobacco. - Ebola Screening: : Patient negative for fever greater than or equal to 101.5 degrees Fahrenheit, and additional compatible Ebola Virus Disease symptoms Patient denies exposure to infectious person Patient denies travel to an Ebola-affected area in the 21 days before illness onset No symptoms or risks identified at this time. ROS: 17:54 Constitutional: Negative for fever, chills, and weight loss, Eyes: Negative for injury, snw pain, redness, and discharge, ENT: Negative for injury, pain, and discharge, Neck: Negative for injury, pain, and swelling, Respiratory: Negative for shortness of breath, cough, wheezing, and pleuritic chest pain, Abdomen/GI: Negative for abdominal pain, nausea, vomiting, diarrhea, and constipation, Back: Negative for injury and pain, : Negative for injury, bleeding, discharge, and swelling, MS/Extremity: Negative for injury and deformity, Skin: Negative for injury, rash, and discoloration, Neuro: Negative for headache, weakness, numbness, tingling, and seizure, Psych: Negative for depression, anxiety, suicide ideation, homicidal ideation, and hallucinations. 17:54 Cardiovascular: Positive for palpitations. Exam: 17:47 Constitutional: This is a well developed, well nourished patient who is awake, alert, snw and in no acute distress. Head/Face: Normocephalic, atraumatic. Eyes: Pupils equal round and reactive to light, extra-ocular motions intact. Lids and lashes normal. Conjunctiva and sclera are non-icteric and not injected. Cornea within normal limits. Periorbital areas with no swelling, redness, or edema. ENT: Nares patent. No nasal discharge, no septal abnormalities noted. Tympanic membranes are normal and external auditory canals are clear. Oropharynx with no redness, swelling, or masses, exudates, or evidence of obstruction, uvula midline. Mucous membranes moist. Neck: Trachea midline, no thyromegaly or masses palpated, and no cervical lymphadenopathy. Supple, full range of motion without nuchal rigidity, or vertebral point tenderness. No Meningismus. Chest/axilla: Normal chest wall appearance and motion. Nontender with no deformity. No lesions are appreciated. Respiratory: Lungs have equal breath sounds bilaterally, clear to auscultation and percussion. No rales, rhonchi or wheezes noted. No increased work of breathing, no retractions or nasal flaring. Abdomen/GI: Soft, non-tender, with normal bowel sounds. No distension or tympany. No guarding or rebound. No evidence of tenderness throughout. Back: No spinal tenderness. No costovertebral tenderness. Full range of motion. Skin: Warm, dry with normal turgor. Normal color with no rashes, no lesions, and no evidence of cellulitis. MS/ Extremity: Pulses equal, no cyanosis. Neurovascular intact. Full, normal range of motion. Neuro: Awake and alert, GCS 15, oriented to person, place, time, and situation. Cranial nerves II-XII grossly intact. Motor strength 5/5 in all extremities. Sensory grossly intact. Cerebellar exam normal. Normal gait. Psych: Awake, alert, with orientation to person, place and time. Behavior, mood, and affect are within normal limits. 17:47 Cardiovascular: Rate: normal, Rhythm: irregular, Pulses: no pulse deficits are appreciated, Heart sounds: normal, Edema: is not appreciated. Vital Signs: 17:39 BP 169 / 91; Pulse 87; Resp 18 S; Temp 98.2; Pulse Ox 100% on R/A; iw 19:25 BP 122 / 75; Pulse 86; Resp 18; Pulse Ox 95% on R/A; Weight 68.04 kg (R); Pain 0/10; lp1 20:15 BP 140 / 76; Pulse 81; Resp 19; Pulse Ox 95% on R/A; lp1 21:14 BP 131 / 81; Pulse 76; Resp 20; Pulse Ox 97% on R/A; Pain 0/10; lp1 MDM: 17:47 Patient medically screened. snw 20:12 Data reviewed: vital signs, nurses notes. Data interpreted: Pulse oximetry: on room air snw is 95 %. Interpretation: acceptable. Counseling: I had a detailed discussion with the patient and/or guardian regarding: the historical points, exam findings, and any diagnostic results supporting the discharge/admit diagnosis, lab results, radiology results, the need for further work-up and treatment in the hospital. Physician consultation: Talat Ortega MD was called at 20:12, was contacted at 20:12, regarding admission, to the telemetry unit. 12/13 17:25 Order name: Basic Metabolic Panel; Complete Time: 18:12 [facility] 12/13 17:25 Order name: CBC with Diff; Complete Time: 18:08 [facility] 12/13 17:25 Order name: LFT's; Complete Time: 18:12 [facility] 12/13 17:25 Order name: Magnesium; Complete Time: 18:12 [facility] 12/13 17:25 Order name: NT PRO-BNP; Complete Time: 18:12 [facility] 12/13 17:25 Order name: PT-INR; Complete Time: 18:08 [facility] 12/13 17:25 Order name: Troponin (emerg Dept Use Only); Complete Time: 18:12 [facility] 12/13 17:46 Order name: TSH; Complete Time: 18:47 snw 12/13 21:15 Order name: Basic Metabolic Panel [facility] 12/13 21:15 Order name: Basic Metabolic Panel [facility] 12/13 21:15 Order name: CBC with Automated Diff [facility] 12/13 21:15 Order name: CBC with Automated Diff [facility] 12/13 21:15 Order name: Troponin I [facility] 12/13 21:15 Order name: Troponin I [facility] 12/13 17:25 Order name: XRAY Chest (1 view); Complete Time: 18:08 [facility] 12/13 17:25 Order name: EKG; Complete Time: 17:27 [facility] 12/13 17:25 Order name: Cardiac monitoring; Complete Time: 17:45 [facility] 12/13 17:25 Order name: EKG - Nurse/Tech; Complete Time: 17:45 [facility] 12/13 17:25 Order name: IV Saline Lock; Complete Time: 17:45 [facility] 12/13 17:25 Order name: Labs collected and sent; Complete Time: 17:45 [facility] 12/13 17:25 Order name: O2 Per Protocol; Complete Time: 17:45 [facility] 12/13 17:25 Order name: O2 Sat Monitoring; Complete Time: 17:45 [facility] 12/13 20:43 Order name: CONS Physician Consult [facility] 12/13 20:43 Order name: Heart Healthy [facility] 12/13 20:43 Order name: Echo with Doppler [facility] 12/13 20:43 Order name: EKG Electrocardiogram [facility] 12/13 20:44 Order name: EKG Electrocardiogram [facility] 12/13 21:16 Order name: Troponin I [facility] Administered Medications: 18:57 Drug: NS 0.9% with KCl 40 mEq/L 1000 ml Route: IV; Rate: 125 ml/hr; Site: left aa5 antecubital; 21:20 Follow up: IV Status: Infusion continued upon admission lp1 Disposition: 12/13/18 20:13 Hospitalization ordered by Talat Ortega for Observation. Preliminary diagnosis are Palpitations, Hypokalemia. - Bed requested for Telemetry/MedSurg (observation). - Status is Observation. lp1 - Condition is Stable. - Problem is new. - Symptoms are unchanged. UTI on Admission? No Addendum: 12/18/2018 09:48 Co-signature as Attending Physician, Andry Alvarado MD I agree with the assessment and k dr plan of care. Signatures: Dispatcher [employer] EDMS Andry Alvarado MD MD [facility] Vesta Avila, DATA MANAGEMENT SPECIALIST-C DATA MANAGEMENT SPECIALIST-Csnw Joanne Bernardo, RN RN iw Jade Pena, RN RN aa5 Mirna Richardson, RN RN lp1 Yuli Moya 3 Corrections: (The following items were deleted from the chart) 12/13 21:00 20:13 Hospitalization Ordered by Talat Ortega MD for Observation. Preliminary snw diagnosis is Palpitations; Hypokalemia. Bed requested for Telemetry/MedSurg (observation). Status is Observation. Condition is Stable. Problem is new. Symptoms are unchanged. UTI on Admission? No. snw 21:26 21:00 12/13/2018 20:13 Hospitalization Ordered by Talat Ortega MD for Observation. lp1 Preliminary diagnosis is Palpitations; Hypokalemia. Bed requested for Telemetry/MedSurg (observation). Status is Observation. Condition is Stable. Problem is new. Symptoms are unchanged. UTI on Admission? No. snw
[2018-12-13] MEDS ORDERED: ALPRAZOLAM 0.25 MG TABLET PO PRN (20:24)
[2018-12-13] MEDS ORDERED: ACETAMINOPHEN 500 MG TAB PO PRN (20:24)
[2018-12-13] MEDS ORDERED: MORPHINE 4 MG/ML SYR IV PRN (20:24)
[2018-12-13 21:43] VITALS: O2SAT 97
[2018-12-14] MEDS: METOPROLOL TAR 50 MG TAB PO SCH ×2 (00:34→09:12)
[2018-12-14 03:09] VITALS: BMI 26.8
[2018-12-14 04:14] LABS: Absolute Lymphocytes (CBC) 2.5 K/uL (0.7-4.9); Basophils % 0.5 % (0-1.3); Hematocrit 35.2 % (36.0-45.0); Lymphocytes % 40.2 % (15.3-44.8); MPV 8.5 fL (7.6-11.3); RBC Red Blood Cell Count 3.87 M/uL (3.86-4.86)
[2018-12-14 04:33] VITALS: TEMP 96.9
[2018-12-14 04:35] LABS: BUN Blood Urea Nitrogen 8 mg/dL (7-18); Bicarbonate 27 mmol/L (21-32); Glucose Level 78 mg/dL (74-106); Potassium 4.2 mmol/L (3.5-5.1); Sodium Level 144 mmol/L (136-145)
--- NOTE | 2018-12-14 08:58 | P.HP ---
Certification for Inpatient Patient admitted to: Observation With expected LOS: <2 Midnights Patient will require the following post-hospital care: None Practitioner: I am a practitioner with admitting privileges, knowledge of patient current condition, hospital course, and medical plan of care. Services: Services provided to patient in accordance with Admission requirements found in Title 42 Section 412.3 of the Code of Federal Regulations Patient History Date of Service: 12/13/18 Reason for admission: Chest pain rule out acute coronary syndrome History of Present Illness: Patient is a 58-year-old female came to the hospital with an uneasy feeling in her chest. She described it more as palpitation rather than pain. She came into the emergency room for evaluation. She had a stress test done in February of 2018. At that time her stress test did not reveal any acute findings although she states that they told her she had some scarring. She did not have a cardiac catheterization at that time. She was scheduled a follow-up as an outpatient. She has been taking her medications as prescribed. She has been on anti-platelet therapy and statin therapy. At this time, she will be admitted to the hospital for further evaluation Allergies No Known Allergies Allergy (Verified 12/14/18 03:08) Home Medications: Atorvastatin Calcium [Lipitor] 20 mg PO BEDTIME 12/14/18 Lisinopril/Hydrochlorothiazide [Lisinopril-Hctz 20-25 mg Tab] 20 - 25 mg PO DAILY 12/14/18 - Past Medical/Surgical History Has patient received pneumonia vaccine in the past: No Diabetic: No -: HTN -: hyperlipidemia -: tubal - Family History Father Family History: Reviewed- Non-Contributory - Social History Smoking Status: Never smoker Alcohol use: No CD- Drugs: No Caffeine use: Yes Place of Residence: Home Review of Systems 10-point ROS is otherwise unremarkable Physical Examination - Vital Signs Temperature: 96.9 F Blood Pressure: 100/65 Pulse: 63 Respirations: 18 Pulse Ox (%): 94 - Physical Exam General: Alert, In no apparent distress, Oriented x3 HEENT: Atraumatic, PERRLA, Mucous membr. moist/pink, EOMI, Sclerae nonicteric Neck: Supple, 2+ carotid pulse no bruit, No LAD, Without JVD or thyroid abnormality Respiratory: Clear to auscultation bilaterally, Normal air movement Cardiovascular: Regular rate/rhythm, Normal S1 S2, No murmurs Gastrointestinal: Normal bowel sounds, Soft and benign, Non-distended, No tenderness Musculoskeletal: No clubbing, No swelling, No tenderness Integumentary: No rashes Neurological: Normal gait, Normal speech, Normal strength at 5/5 x4 extr, Normal tone, Sensation intact, Cranial nerves 3-12 intact, Normal affect Lymphatics: No axilla or inguinal lymphadenopathy - Studies Laboratory Data (last 24 hrs) 12/13/18 17:37: PT 11.3, INR 0.96 12/13/18 17:37: WBC 8.0, Hgb 14.4, Hct 41.2, Plt Count 251 12/13/18 17:37: Sodium 130 L, Potassium 3.1 L, BUN 7, Creatinine 0.60, Glucose 93, Magnesium 1.9, Total Bilirubin 1.0, AST 30, ALT 50, Alkaline Phosphatase 63 Assessment & Plan - Problems (Diagnosis) (1) Chest pain, rule out acute myocardial infarction Current Visit: Yes Status: Acute (2) Palpitations Current Visit: Yes Status: Acute - Plan 1. Serial troponins and EKG 2. Cardiology consultation 3. Echocardiogram and may need to get records from [facility] 4. Anti-platelet therapy, anti coagulation, beta-[place], statin, and O2 as needed 5. IV morphine for pain 6. Nitro p.r.n. Discharge Plan: Home Plan to discharge in: 24 Hours - Advance Directives Does patient have a Living Will: No Does patient have a Durable POA for Healthcare: No - Code Status/Comfort Care Code Status Assessed: Yes Code Status: Full Code Critical Care: No Time Spent Managing PTS Care (In Minutes): 45
[2018-12-14] MEDS ORDERED: ENOXAPARIN 40 MG/0.4 ML SQ SCH (09:00)
[2018-12-14] MEDS ORDERED: hydroCHLOROthiazide 25 MG TAB PO SCH (09:00)
[2018-12-14] MEDS ORDERED: LISINOPRIL 20 MG TAB PO SCH ×2 (09:00)
[2018-12-14] MEDS ORDERED: ASPIRIN EC 81 MG TAB PO SCH (09:00)
[2018-12-14 09:17] VITALS: BP 122/84
--- NOTE | 2018-12-14 11:10 | EKG ---
Test Date: 2018-12-13 Test Time: 17:34:55 Preventive Maintenance Engineer: SADIE MEASUREMENT RESULTS: Intervals: Rate: 95 WV: 170 QRSD: 86 QT: 350 QTc: 439 [place]: P: 50 WV: 170 QRS: 56 T: 69 INTERPRETIVE STATEMENTS: Normal sinus rhythm Normal ECG Compared to ECG 08/17/2011 16:46:38 Incomplete right bundle-branch block no longer present Electronically Signed On 12-14-18 11:06:24 CDT by Nav Hernandez
[2018-12-14] MEDS ORDERED: ATORVASTATIN 20 MG TAB PO SCH (21:00)
--- NOTE | 2018-12-15 08:06 | ECHO ---
HEIGHT: 5 ft 4 in WEIGHT: 156 lb 7 oz DATE OF STUDY: 12/14/[address]: Talat Ortega MD 2-DIMENSIONAL: YES M.MODE: YES DOPPLER: YES COLOR FLOW: YES TDS: NO PORTABLE: NO DEFINITY: NO BUBBLE STUDY: NO DIAGNOSIS: CHEST PAIN, RULE OUT ACS CARDIAC HISTORY: CATHERIZATION: NO SURGERY: NO PROSTHETIC VALVE: NO PACEMAKER: NO MEASUREMENTS (cm) DIASTOLIC (NORMALS) SYSTOLIC (NORMALS) IVSd 0.9 (0.6-1.2) LA Diam 2.6 (1.9-4.0) LVEF 73% LVIDd 3.9 (3.5-5.7) LVIDs 2.3 (2.0-3.5) %FS 41% LVPWd 1.1 (0.6-1.2) Ao Diam 3.1 (2.0-3.7) 2 DIMENSIONAL ASSESSMENT: RIGHT ATRIUM: NORMAL LEFT ATRIUM: NORMAL RIGHT VENTRICLE: NORMAL LEFT VENTRICLE: NORMAL TRICUSPID VALVE: NORMAL MITRAL VALVE: NORMAL PULMONIC VALVE: NORMAL AORTIC VALVE: NORMAL PERICARDIAL EFFUSION: NONE AORTIC ROOT: NORMAL LEFT VENTRICULAR WALL MOTION: NORMAL DOPPLER/COLOR FLOW: NORMAL COMMENTS: NORMAL 2D ECHOCARDIOGRAM WITH DOPPLER. NO WALL MOTION ABNORMALITY. NO EFFUSION. TECHNOLOGIST: Riri TIM
--- NOTE | 2018-12-15 08:10 | CON ---
Date of Consultation: 12/14/[address] Ortega's service on 12/13/2018. I saw the patient on 12/14/2018. Reason For Consultation: Palpitations. History Of Present Illness: Ms. Jimenez is a 58-year-old white woman, has really no previous cardiac history. She has history of hypertension and dyslipidemia for which she takes lisinopril with hydro chlorothiazide, and Lipitor respectively. She also has been taking magnesium citrate tablets and has had some diarrhea recently. She was having some palpitations. No chest pain. No vomiting. She cortez s some nausea. Denied PND, orthopnea, pedal edema. She denied any syncope. She had a normal EKG an d her blood work was noted for hyponatremia with a sodium 130, hypokalemia with a potassium 3.1. Oth erwise, her workup was negative. She is feeling better right now after her potassium was corrected a nd her sodium was corrected with hydration and potassium. Past Medical History: As stated above. Allergies: NONE. Medications: Stated above. Review of Systems: Negative. Social History: Negative. Family History: Noncontributory. Physical Examination: General: Ms. Jimenez was very pleasant, no acute distress. Vital Signs: Stable. Afebrile. HEENT: Negative. Neck: Supple without any bruit, lymphadenopathy, JVD, or thyromegaly. Chest: Clear to auscultation and percussion. Cardiac: Revealed a regular rhythm and rate. No murmurs, gallops, or rubs. Abdomen: Benign. Extremities: Revealed no clubbing, cyanosis, or edema. Diagnostic Data: As stated earlier. Impression And Plan: Palpitations that I believe is secondary to hypokalemia and electrolyte disturb ance. I suggested she stop her magnesium. Continue her usual regimen. Have blood work checked in a bout a week or 2. Echocardiogram is pending. Ms. Jimenez has had an echo and a stress test approxim ately a year ago that were negative. Her blood pressure is well controlled and her dyslipidemia is w ell controlled. I am comfortable with her going home if her echocardiogram is normal. HILLARY/RENUL Voice ID: [id number] Report ID: [id number]
== END 2018-12-14 15:20 | disposition home or self-care (01) ==
LOC: ER 17:01 → ERHOLD 20:24 → 4TH 21:15
PROVIDERS: ADMIT Hospitalist; ATTEND Internal Medicine
DX: R07.9 Chest pain, unspecified (principal); R00.2 Palpitations; E87.8 Other disorders of electrolyte and fluid balance, not elsewhere classified; E87.6 Hypokalemia; I10 Essential (primary) hypertension; E78.5 Hyperlipidemia, unspecified
CPT/HCPCS: 96361; 93005; 93306; 85025 ×2; 80048 ×2; 36415; 83735; 85610; 80076; 84443; 84484 ×3; 83880; 71045; 96360; 99285; J1650; J7030; G0378 ×3

== ENCOUNTER 2019-06-15 00:10 | Observation (INO) | payer BC ==
--- OUTSIDE RECORDS SUMMARY | 2019-06-15 00:13 | XMS REPORT ---
:1960 [facility] Address [address] [place] [address] [address]. [address] [place] [address] Care Team Providers Name Role Phone JOHNNIE [...] PATIENT ID: MULTI, SPECT 16:41:00 exam:->Chest Pain [id number] PROCEDURE: Rest/Stress MYOCARDIAL PERFUSION SPECT with treadmill\XA9\ CPT CODE: 93151 INDICATION: Chest pain, chronic, high probability of [...] tracer distribution. 6. No previous [facility] study for comparison. Signed: Ina Curtis MDReport Verified Date/Time: 02/16/2018 16:41:31 Reading Location: [address] Reading Room GLOBIN A1C 2018-02-16 11:58:00 Test Item Value Reference Range Comments HEMOGLOBIN A1C (BEAKER) (test idkh=727) 5.3 % 4.3-6.1 LIPID [id number] 06:49:00 Test Item Value Reference Range Comments TRIGLYCERIDES (BEAKER) (test xepk=164) 147 mg/dL CHOLESTEROL (BEAKER) (test nhcg=027) 181 mg/dL HDL CHOLESTEROL (BEAKER) (test kdal=471) 33 mg/dL LDL CHOLESTEROL CALCULATED (BEAKER) (test 119 mg/dL snkb=307) Triglyceride Reference Range: Low Risk <150 Borderline 150- 199 High Risk 200-499 Very High Risk >=500Cholesterol Reference Range: Low Risk <200 Borderline 200-239 High Risk > 240HDL Cholesterol Reference Range: Low Risk >=60 High Risk <40LDL Cholesterol Reference Range: Optimal <100 Near Optimal 100-129 Borderline 130-159 High 160-189 Very High >=190BASI METABOLIC [id number] 06:49:00 Test Item Value Reference Range Comments SODIUM (BEAKER) (test 137 meq/L 136-145 jkia=433) POTASSIUM (BEAKER) (test 3.7 meq/L 3.5-5.1 vhqt=666) CHLORIDE (BEAKER) (test 105 meq/L 98-107 tsda=888) CO2 (BEAKER) (test 23 meq/L 22-29 tqlj=410) BLOOD UREA NITROGEN 14 mg/dL 7-21 (BEAKER) (test mhha=540) CREATININE (BEAKER) (test 0.72 mg/dL 0.57-1.25 skzj=921) GLUCOSE RANDOM (BEAKER) 85 mg/dL 70-105 (test rtgp=581) CALCIUM (BEAKER) (test 9.0 mg/dL 8.4-10.2 dhud=290) EGFR (BEAKER) (test 83 mL/min/1.73 sq m ESTIMATED GFR IS NOT wdae=5632) ACCURATE CREATININE CLEARANCE IN PREDICTING GLOMERULAR FILTRATION RATE. ESTIMATED GFR IS NOT APPLICABLE FOR DIALYSIS PATIENTS. TROPONIN [id number] 06:28:00 Test Item Value Reference Range Comments TROPONIN I (BEAKER) (test qrld=979) < ng/mL 0.00-0.03 CBC W/PLT COUNT & AUTO [id number] 05:34:00 Test Item Value Reference Range Comments WHITE BLOOD CELL COUNT (BEAKER) (test kydg=952) 6.8 K/ L 3.5-10.5 RED BLOOD CELL COUNT (BEAKER) (test iour=561) 4.24 M/ L 3.93-5.22 HEMOGLOBIN (BEAKER) (test esdo=014) 13.5 GM/DL 11.2-15.7 HEMATOCRIT (BEAKER) (test hzaf=510) 39.2 % 34.1-44.9 MEAN CORPUSCULAR VOLUME (BEAKER) (test dujt=374) 92.5 fL 79.4-94.8 MEAN CORPUSCULAR HEMOGLOBIN (BEAKER) (test 31.8 pg 25.6-32.2 bglk=442) MEAN CORPUSCULAR HEMOGLOBIN CONC (BEAKER) (test 34.4 GM/DL 32.2-35.5 krpq=052) RED CELL DISTRIBUTION WIDTH (BEAKER) (test 11.4 % 11.7-14.4 wmuc=690) PLATELET COUNT (BEAKER) (test fseo=514) 248 K/CU MM 150-450 MEAN PLATELET VOLUME (BEAKER) (test pfhk=119) 10.6 fL 9.4-12.3 NUCLEATED RED BLOOD CELLS (BEAKER) (test 0 /100 WBC 0-0 fcdd=659) NEUTROPHILS RELATIVE PERCENT (BEAKER) (test 50 % qply=258) LYMPHOCYTES RELATIVE PERCENT (BEAKER) (test 39 % ttrj=168) MONOCYTES RELATIVE PERCENT (BEAKER) (test 8 % uivp=676) EOSINOPHILS RELATIVE PERCENT (BEAKER) (test 2 % foxg=764) BASOPHILS RELATIVE PERCENT (BEAKER) (test 0 % upzu=130) NEUTROPHILS ABSOLUTE COUNT (BEAKER) (test 3.37 K/ L 1.56-6.13 ydcy=578) LYMPHOCYTES ABSOLUTE COUNT (BEAKER) (test 2.66 K/ L 1.18-3.74 jenv=524) MONOCYTES ABSOLUTE COUNT (BEAKER) (test 0.56 K/ L 0.24-0.36 cdoy=861) EOSINOPHILS ABSOLUTE COUNT (BEAKER) (test 0.11 K/ L 0.04-0.36 tkgy=188) BASOPHILS ABSOLUTE COUNT (BEAKER) (test 0.03 K/ L 0.01-0.08 zfru=870) IMMATURE GRANULOCYTES-RELATIVE PERCENT (BEAKER) 0 % 0-1 (test vdtm=2836) TROPONIN [id number] 01:36:00 Test Item Value Reference Range Comments TROPONIN I (BEAKER) (test vpak=181) < ng/mL 0.00-0.03 [id number] 01:21:00 Test Item Value Reference Range Comments POTASSIUM (BEAKER) (test lkpv=942) 3.5 meq/L 3.5-5.1
[2019-06-15] MEDS ORDERED: MORPHINE 2 MG/ML SYR ONE (01:09)
[2019-06-15] MEDS ORDERED: ONDANSETRON 4 MG/2 ML VIAL ONE (01:10)
[2019-06-15] MEDS ORDERED: ASPIRIN 81 MG CHEWABLE TABLET ONE (01:10)
[2019-06-15 01:34] LABS: Protime INR 0.96
[2019-06-15 01:35] LABS: Absolute Lymphocytes (CBC) 2.1 K/uL (0.7-4.9); Basophils % 0.5 % (0-1.3); Hematocrit 38.1 % (36.0-45.0); MPV 8.4 fL (7.6-11.3); RBC Red Blood Cell Count 4.28 M/uL (3.86-4.86)
--- NOTE | 2019-06-15 01:48 | ER ---
Nurse's Notes [facility] Name: Pallavi Jimenez Age: 59 yrs Sex: Female : 1960 Arrival Date: 06/15/2019 Time: 00:13 Bed 7 Private MD: Diagnosis: Headache;Pain in right forearm;Pain in left forearm;Essential (primary) hypertension;Hypokalemia;Hypo-osmolality and hyponatremia;Hypomagnesemia Presentation: 06/14 00:25 Chief complaint: Patient states: I feel weird started today, feels like tingling rr5 sensation on my arm and left arm pain on and off. denies chest pain. 00:25 Coronavirus screen: The patient has NOT traveled to a country currently being monitored rr5 by the [facility] within the last 14 days. Proceed with normal triage procedures. Ebola Screen: Patient negative for fever greater than or equal to 101.5 degrees Fahrenheit, and additional compatible Ebola Virus Disease symptoms Patient denies exposure to infectious person. Patient denies travel to an Ebola-affected area in the 21 days before illness onset. Initial Sepsis Screen: Does the patient meet any 2 criteria? No. Patient's initial sepsis screen is negative. Does the patient have a suspected source of infection? No. Patient's initial sepsis screen is negative. Risk Assessment: Do you want to hurt yourself or someone else? Patient reports no desire to harm self or others. Onset of symptoms was June 14, 2019. 00:25 Method Of Arrival: Ambulatory rr5 00:25 Acuity: JENNY 3 rr5 Historical: - Allergies: 00:30 No Known Allergies; rr5 - Home Meds: 00:30 atorvastatin 40 mg Oral tab 1 tab once daily [Active]; lisinopril 20 mg Oral tab 1 tab rr5 once daily [Active]; - PMHx: 00:30 Hyperlipidemia; Hypertension; rr5 - PSHx: 00:30 cyst removal; rr5 - Immunization history:: Adult Immunizations up to date. - Social history:: Smoking status: unknown Patient uses alcohol, on a daily basis. Patient/guardian denies using street drugs. - Family history:: not pertinent. Screenin:31 Abuse screen: Denies threats or abuse. Denies injuries from another. Nutritional rr5 screening: No deficits noted. Tuberculosis screening: No symptoms or risk factors identified. VAN Screening: Arm Drift: Patient shows no arm weakness. Patient is VAN negative. Fall Risk None identified. Total Najera Fall Scale indicates No Risk (0-24 pts). Assessment: 00:25 General: Appears in no apparent distress. comfortable, Behavior is calm, cooperative, rr5 appropriate for age. 00:25 Pain: Denies pain. Neuro: Level of Consciousness is awake, alert, obeys commands, rr5 Oriented to person, place, time, situation, Appropriate for age Gait is steady, Speech is normal, Facial symmetry appears normal, Reports numbness in right arm and left arm light headed. Cardiovascular: Capillary refill < 3 seconds Patient's skin is warm and dry. Respiratory: Airway is patent Respiratory effort is even, unlabored, Respiratory pattern is regular, symmetrical. GI: Reports nausea. : No signs and/or symptoms were reported regarding the genitourinary system. EENT: No signs and/or symptoms were reported regarding the EENT system. Derm: Skin is intact, is healthy with good turgor, Skin temperature is warm. Musculoskeletal: Circulation, motion, and sensation intact. Capillary refill < 3 seconds. 01:19 Reassessment: Patient appears in no apparent distress at this time. Patient is alert, rr5 oriented x 3, equal unlabored respirations, skin warm/dry/pink. blood sample sent, awaiting for results. 02:20 Reassessment: Patient appears in no apparent distress at this time. Patient is alert, rr5 oriented x 3, equal unlabored respirations, skin warm/dry/pink. awaiting for CT result before to give aspirin order. 02:20 Reassessment: follow up to CT staff the result. rr5 02:50 Reassessment: follow up to CT staff for the CT result. as per CT staff they need to rr5 resend the images. 03:53 Reassessment: Patient appears in no apparent distress at this time. Patient is alert, rr5 oriented x 3, equal unlabored respirations, skin warm/dry/pink. follow up to CT department for the result, they need to resend the images as per CT staff Leatha. 04:19 Reassessment: Patient appears in no apparent distress at this time. Patient is alert, rr5 oriented x 3, equal unlabored respirations, skin warm/dry/pink. for transfer to room [address] result comes back. 04:35 Reassessment: CT result came back reviewed by ED provider with order can give the rr5 lovenox and aspirin order. Vital Signs: 00:25 BP 154 / 78; Pulse 98; Resp 17; Temp 98.1; Pulse Ox 99% ; Weight 68.04 kg; Height 5 ft. rr5 4 in. (162.56 cm); Pain 0/10; 00:49 BP 143 / 79; Pulse 82; Resp 16; Pulse Ox 99% on R/A; rr5 02:00 BP 131 / 65; Pulse 89; Resp 19; Pulse Ox 98% on R/A; rr5 03:00 BP 141 / 85; Pulse 79; Resp 18; Pulse Ox 98% on R/A; rr5 04:00 BP 113 / 70; Pulse 70; Resp 16; Temp 98; Pulse Ox 99% ; Pain 0/10; rr5 04:54 BP 115 / 75; Pulse 75; Resp 17; Pulse Ox 98% on R/A; rr5 00:25 Body Mass Index 25.75 (68.04 kg, 162.56 cm) rr5 ED Course: 00:13 Patient arrived in ED. jg7 00:14 Wei Alvarado, RN is Primary Nurse. rr5 00:28 Triage completed. rr5 00:30 Arm band placed on right wrist. rr5 00:31 Patient has correct armband on for positive identification. Placed in gown. Bed in low rr5 position. Call light in reach. Pulse ox on. NIBP on. 00:40 Davonte Rosario MD is Attending Physician. paty 01:15 Inserted saline lock: 20 gauge in right forearm, using aseptic technique. Blood rr5 collected. 01:36 XRAY Chest (1 view) In Process Unspecified. EDMS 01:45 Talat Ortega MD is Hospitalizing Provider. paty 01:50 Urine Culture Sent. ds4 01:50 Lipase Sent. ds4 01:50 EKG done, by ED staff, reviewed by Davonte Rosario MD. ds4 02:14 CT Head C Spine In Process Unspecified. EDMS 04:17 No provider procedures requiring assistance completed. Patient admitted, IV remains in rr5 place. intact, No redness/swelling at site. 04:50 Repeat lab(s) drawn. by nc, sent to lab. rr5 Administered Medications: 01:15 Drug: Zofran (Ondansetron) 4 mg Route: IVP; Site: right forearm; rr5 02:14 Follow up: Response: No adverse reaction rr5 01:17 Drug: morphine 2 mg {Note: rass 0.} Route: IVP; Site: right forearm; rr5 02:15 Follow up: Response: No adverse reaction; RASS: Alert and Calm (0) rr5 02:30 Drug: Potassium Effervescent Tablet 25 mEq Route: PO; rr5 03:30 Follow up: Response: No adverse reaction rr5 02:36 Drug: Magnesium Sulfate 1 grams Route: IVPB; Infused Over: 1 hrs; Site: right forearm; rr5 03:35 Follow up: Response: No adverse reaction; IV Status: Completed infusion; IV Intake: rr5 100ml 04:43 Drug: Lovenox 1 mg/kg Route: Sub-Q; Site: right lower abdomen; rr5 04:50 Follow up: Response: Other; given prior transferring to floor. rr5 04:46 Drug: Aspirin 162 mg Route: PO; rr5 04:50 Follow up: Response: Other; given upon transfer to floor rr5 04:50 Drug: Rocephin 1 grams Route: IV; Rate: per protocol; Site: right forearm; rr5 04:51 Follow up: Response: Other; IV Status: Completed infusion; IV Intake: 10ml ; given rr5 prior transferring to floor Intake: 03:35 IV: 100ml; Total: 100ml. rr5 04:51 IV: 10ml; Total: 110ml. rr5 Outcome: 01:48 Decision to Hospitalize by Provider. paty 04:17 Admitted to Med/surg accompanied by neil, via wheelchair, room 225, with chart, Report rr5 called to dot 04:17 Condition: stable 04:17 Instructed on the need for admit. 04:55 Patient left the ED. rr5 Signatures: Dispatcher [employer] EDDavonte Alfaro MD MD cha Swanson, Donovan ds4 Wei Alvarado, SHERINE RN rr5 Mackenzie [email or web address] Corrections: (The following items were deleted from the chart) 00:49 00:25 GI: No signs and/or symptoms were reported involving the gastrointestinal system. rr5 rr5
--- NOTE | 2019-06-15 01:49 | EDPHYS ---
Physician Documentation [facility] Name: Pallavi Jimenez Age: 59 yrs Sex: Female : 1960 Arrival Date: 06/15/2019 Time: 00:13 Bed 7 Private MD: EHSAN Physician Davonte Rosario HPI: 06/14 00:58 This 59 yrs old Female presents to ER via Ambulatory with complaints of Arm paty Pain, LIGHTHEADED, Doesn't Feel Right. 00:58 The patient or guardian complains of decreased range of motion, pain. The complaints paty affect the dorsal aspect of right forearm, right wrist and palmar aspect of right forearm, dorsal aspect of left forearm, left wrist and palmar aspect of left forearm. Context: The problem was sustained at home. Onset: The symptoms/episode began/occurred yesterday. Treatment prior to arrival includes: no previous treatment. Modifying factors: The symptoms are alleviated by nothing. the symptoms are aggravated by nothing. Associated signs and symptoms: The patient has no apparent associated signs or symptoms. Severity of symptoms: At their worst the symptoms were mild, moderate, in the emergency department the symptoms have resolved. Historical: - Allergies: 00:30 No Known Allergies; rr5 - Home Meds: 00:30 atorvastatin 40 mg Oral tab 1 tab once daily [Active]; lisinopril 20 mg Oral tab 1 tab rr5 once daily [Active]; - PMHx: 00:30 Hyperlipidemia; Hypertension; rr5 - PSHx: 00:30 cyst removal; rr5 - Immunization history:: Adult Immunizations up to date. - Social history:: Smoking status: unknown Patient uses alcohol, on a daily basis. Patient/guardian denies using street drugs. - Family history:: not pertinent. ROS: 00:58 Constitutional: Negative for fever, chills, and weight loss, Eyes: Negative for injury, paty pain, redness, and discharge, ENT: Negative for injury, pain, and discharge, Neck: Negative for injury, pain, and swelling, Cardiovascular: Negative for chest pain, palpitations, and edema, Respiratory: Negative for shortness of breath, cough, wheezing, and pleuritic chest pain, Abdomen/GI: Negative for abdominal pain, nausea, vomiting, diarrhea, and constipation, Back: Negative for injury and pain, : Negative for injury, bleeding, discharge, and swelling, Skin: Negative for injury, rash, and discoloration, Neuro: Negative for headache, weakness, numbness, tingling, and seizure, Psych: Negative for depression, anxiety, suicide ideation, homicidal ideation, and hallucinations, Allergy/Immunology: Negative for hives, rash, and allergies, Endocrine: Negative for neck swelling, polydipsia, polyuria, polyphagia, and marked weight changes, Hematologic/Lymphatic: Negative for swollen nodes, abnormal bleeding, and unusual bruising. 00:58 MS/extremity: Positive for pain, of the right arm and left arm. Exam: 00:58 Constitutional: This is a well developed, well nourished patient who is awake, alert, paty and in no acute distress. Head/Face: Normocephalic, atraumatic. Eyes: Pupils equal round and reactive to light, extra-ocular motions intact. Lids and lashes normal. Conjunctiva and sclera are non-icteric and not injected. Cornea within normal limits. Periorbital areas with no swelling, redness, or edema. ENT: Nares patent. No nasal discharge, no septal abnormalities noted. Tympanic membranes are normal and external auditory canals are clear. Oropharynx with no redness, swelling, or masses, exudates, or evidence of obstruction, uvula midline. Mucous membranes moist. Neck: Trachea midline, no thyromegaly or masses palpated, and no cervical lymphadenopathy. Supple, full range of motion without nuchal rigidity, or vertebral point tenderness. No Meningismus. Chest/axilla: Normal chest wall appearance and motion. Nontender with no deformity. No lesions are appreciated. Cardiovascular: Regular rate and rhythm with a normal S1 and S2. No gallops, murmurs, or rubs. Normal PMI, no JVD. No pulse deficits. Respiratory: Lungs have equal breath sounds bilaterally, clear to auscultation and percussion. No rales, rhonchi or wheezes noted. No increased work of breathing, no retractions or nasal flaring. Abdomen/GI: Soft, non-tender, with normal bowel sounds. No distension or tympany. No guarding or rebound. No evidence of tenderness throughout. Back: No spinal tenderness. No costovertebral tenderness. Full range of motion. Skin: Warm, dry with normal turgor. Normal color with no rashes, no lesions, and no evidence of cellulitis. MS/ Extremity: Pulses equal, no cyanosis. Neurovascular intact. Full, normal range of motion. Neuro: Awake and alert, GCS 15, oriented to person, place, time, and situation. Cranial nerves II-XII grossly intact. Motor strength 5/5 in all extremities. Sensory grossly intact. Cerebellar exam normal. Normal gait. Psych: Awake, alert, with orientation to person, place and time. Behavior, mood, and affect are within normal limits. 00:58 Musculoskeletal/extremity: DVT Exam: No signs of deep vein thrombosis. no pain, no swelling, no tenderness, negative Homans' sign noted on exam, no appreciated bluish discoloration, no erythema, no increased warmth. Vital Signs: 00:25 BP 154 / 78; Pulse 98; Resp 17; Temp 98.1; Pulse Ox 99% ; Weight 68.04 kg; Height 5 ft. rr5 4 in. (162.56 cm); Pain 0/10; 00:49 BP 143 / 79; Pulse 82; Resp 16; Pulse Ox 99% on R/A; rr5 02:00 BP 131 / 65; Pulse 89; Resp 19; Pulse Ox 98% on R/A; rr5 03:00 BP 141 / 85; Pulse 79; Resp 18; Pulse Ox 98% on R/A; rr5 04:00 BP 113 / 70; Pulse 70; Resp 16; Temp 98; Pulse Ox 99% ; Pain 0/10; rr5 04:54 BP 115 / 75; Pulse 75; Resp 17; Pulse Ox 98% on R/A; rr5 00:25 Body Mass Index 25.75 (68.04 kg, 162.56 cm) rr5 MDM: 00:41 Patient medically screened. [facility] 01:00 Data reviewed: vital signs, nurses notes, lab test result(s), EKG, radiologic studies, [facility] CT scan, plain films. 06/14 00:58 Order name: Basic Metabolic Panel; Complete Time: 02:07 [facility] 06/14 00:58 Order name: CBC with Diff; Complete Time: 01:45 [facility] 06/14 00:58 Order name: LFT's; Complete Time: 02:07 [facility] 06/14 00:58 Order name: Magnesium; Complete Time: 02:07 [facility] 06/14 00:58 Order name: NT PRO-BNP; Complete Time: 02:07 [facility] 06/14 00:58 Order name: PT-INR; Complete Time: 01:45 [facility] 06/14 00:58 Order name: Troponin (emerg Dept Use Only); Complete Time: 02:07 [facility] 06/14 00:58 Order name: Lipase; Complete Time: 02:07 [facility] 06/14 00:58 Order name: Urine Culture [facility] 06/14 01:50 Order name: Urine Microscopic Only; Complete Time: 04:16 4 06/14 01:52 Order name: Urine Dipstick--Ancillary (enter results); Complete Time: 04:16 [facility] 06/14 00:58 Order name: XRAY Chest (1 view) [facility] 06/14 00:58 Order name: CT Head C Spine [facility] 06/14 02:04 Order name: Echo with Doppler [facility] 06/14 02:04 Order name: Troponin I [facility] 06/14 02:04 Order name: Troponin I [facility] 06/14 02:09 Order name: Carotid Artery Bilateral [facility] 06/14 02:11 Order name: Basic Metabolic Panel [facility] 06/14 02:11 Order name: CBC with Automated Diff [facility] 06/14 02:11 Order name: Procalcitonin [facility] 06/14 02:11 Order name: T4 Free [facility] 06/14 02:11 Order name: Thyroid Stimulating Hormone [facility] 06/14 02:11 Order name: Vitamin B12 Level [facility] 06/14 00:58 Order name: EKG; Complete Time: 01:00 [facility] 06/14 00:58 Order name: Cardiac monitoring; Complete Time: 01:18 [facility] 06/14 00:58 Order name: EKG - Nurse/Tech; Complete Time: 01:50 [facility] 06/14 00:58 Order name: IV Saline Lock; Complete Time: 01:18 [facility] 06/14 00:58 Order name: Labs collected and sent; Complete Time: 01:19 [facility] 06/14 00:58 Order name: O2 Per Protocol; Complete Time: 01:19 [facility] 06/14 00:58 Order name: O2 Sat Monitoring; Complete Time: 01:24 [facility] 06/14 00:58 Order name: Urine Dipstick-Ancillary (obtain specimen); Complete Time: 01:50 [facility] 06/14 02:03 Order name: CONS Pharmacy Consult [facility] 06/14 02:03 Order name: Heart Healthy [facility] 06/14 02:04 Order name: EKG Electrocardiogram EDMS 06/14 02:04 Order name: EKG Electrocardiogram EDMS Administered Medications: 01:15 Drug: Zofran (Ondansetron) 4 mg Route: IVP; Site: right forearm; rr5 02:14 Follow up: Response: No adverse reaction rr5 01:17 Drug: morphine 2 mg {Note: rass 0.} Route: IVP; Site: right forearm; rr5 02:15 Follow up: Response: No adverse reaction; RASS: Alert and Calm (0) rr5 02:30 Drug: Potassium Effervescent Tablet 25 mEq Route: PO; rr5 03:30 Follow up: Response: No adverse reaction rr5 02:36 Drug: Magnesium Sulfate 1 grams Route: IVPB; Infused Over: 1 hrs; Site: right forearm; rr5 03:35 Follow up: Response: No adverse reaction; IV Status: Completed infusion; IV Intake: rr5 100ml 04:43 Drug: Lovenox 1 mg/kg Route: Sub-Q; Site: right lower abdomen; rr5 04:50 Follow up: Response: Other; given prior transferring to floor. rr5 04:46 Drug: Aspirin 162 mg Route: PO; rr5 04:50 Follow up: Response: Other; given upon transfer to floor rr5 04:50 Drug: Rocephin 1 grams Route: IV; Rate: per protocol; Site: right forearm; rr5 04:51 Follow up: Response: Other; IV Status: Completed infusion; IV Intake: 10ml ; given rr5 prior transferring to floor Disposition: 06/15/19 01:48 Hospitalization ordered by Talat Ortega for Observation. Preliminary diagnosis are Headache, Pain in right forearm, Pain in left forearm, Essential (primary) hypertension, Hypokalemia, Hypo-osmolality and hyponatremia, Hypomagnesemia. - Bed requested for Telemetry/MedSurg (Inpatient). - Status is Observation. rr5 - Condition is Fair. - Problem is new. - Symptoms have improved. Signatures: Dispatcher [employer] EDMS Sarah Edward RN RN mw Anderson, Corey, MD MD cha Roque, Raymond, RN RN rr5 Corrections: (The following items were deleted from the chart) 02:09 01:48 Hospitalization Ordered by Talat Ortega MD for Observation. Preliminary paty diagnosis is Headache; Pain in right forearm; Pain in left forearm; Essential (primary) hypertension. Bed requested for Telemetry/MedSurg (Inpatient). Status is Observation. Condition is Fair. Problem is new. Symptoms have improved. paty 02:11 02:04 CBC with Automated Diff ordered. [facility] EDMS 02:11 02:04 CBC with Automated Diff ordered. [facility] EDMS 02:11 02:04 Comprehensive Metabolic Panel ordered. [facility] ED[facility] 02: 02:04 Comprehensive Metabolic Panel ordered. [facility] EDNY 02:11 02:04 Lipid Profile ordered. [facility] EDMS 02:11 02:04 Lipid Profile ordered. [facility] EDNY 03:19 02:09 06/15/2019 01:48 Hospitalization Ordered by Talat Ortega MD for Observation. mw Preliminary diagnosis is Headache; Pain in right forearm; Pain in left forearm; Essential (primary) hypertension; Hypokalemia; Hypo-osmolality and hyponatremia; Hypomagnesemia. Bed requested for Telemetry/MedSurg (Inpatient). Status is Observation. Condition is Fair. Problem is new. Symptoms have improved. paty 04:55 03:19 06/15/2019 01:48 Hospitalization Ordered by Talat Ortega MD for Observation. rr5 Preliminary diagnosis is Headache; Pain in right forearm; Pain in left forearm; Essential (primary) hypertension; Hypokalemia; Hypo-osmolality and hyponatremia; Hypomagnesemia. Bed requested for Telemetry/MedSurg (Inpatient). Status is Observation. Condition is Fair. Problem is new. Symptoms have improved. cheng
[2019-06-15 01:51] LABS: ALT/SGPT 47 U/L (12-78); AST/SGOT 29 U/L (15-37); Albumin 3.6 g/dL (3.4-5.0); Alkaline Phosphatase 51 U/L (45-117); BUN Blood Urea Nitrogen 9 mg/dL (7-18); Bicarbonate 26 mmol/L (21-32); Bilirubin Direct 0.2 mg/dL (0-0.2); Bilirubin Total 0.8 mg/dL (0.2-1.0); Glucose Level 96 mg/dL (74-106); Lipase 123 U/L (73-393); Magnesium 1.6 mg/dL (1.8-2.4); NT PRO-BNP 42 pg/mL (<125); Potassium 3.2 mmol/L (3.5-5.1); Protein, Total 6.8 g/dL (6.4-8.2); Sodium Level 127 mmol/L (136-145); Troponin (Emerg Dept Use Only) < 0.02 ng/mL (0.0-0.045)
[2019-06-15] MEDS ORDERED: ACETAMINOPHEN 500 MG TAB PO PRN (01:58)
[2019-06-15] MEDS ORDERED: MORPHINE 2 MG/ML SYR IV PRN (01:58)
[2019-06-15] MEDS ORDERED: ONDANSETRON 4 MG/2 ML VIAL IV PRN (01:58)
[2019-06-15] MEDS ORDERED: ASPIRIN EC 81 MG TAB PO ONE (02:02)
[2019-06-15] MEDS ORDERED: ATORVASTATIN 20 MG TAB PO SCH (02:02)
[2019-06-15 02:23] LABS: Urine Bacteria 20-50 /HPF (<20); Urine Yeast MANY (NONE SEEN)
[2019-06-15] MEDS ORDERED: MAGNESIUM SULFATE 1 gm IVPB 1 GM/100 ML BAG IV ONE (02:36)
[2019-06-15] MEDS ORDERED: POTASSIUM 25 MEQ EFFERV TAB ONE (02:36)
[2019-06-15 02:52] LABS: Urine Blood NEGATIVE (NEG); Urine Glucose NEGATIVE (NEG); Urine Protein NEGATIVE (NEG)
[2019-06-15] MEDS ORDERED: ENOXAPARIN 80 MG/0.8 ML SQ ONE (04:40)
[2019-06-15] MEDS ORDERED: CEFTRIAXONE/SWI 1gm 1 GM/10 ML SYR ONE (04:52)
[2019-06-15 04:56] LABS: Absolute Lymphocytes (CBC) 2.4 K/uL (0.7-4.9); Basophils % 0.5 % (0-1.3); Hematocrit 38.5 % (36.0-45.0); Lymphocytes % 31.2 % (15.3-44.8); MPV 8.4 fL (7.6-11.3); RBC Red Blood Cell Count 4.32 M/uL (3.86-4.86)
[2019-06-15 05:04] VITALS: BMI 26.5
[2019-06-15 05:31] LABS: BUN Blood Urea Nitrogen 8 mg/dL (7-18); Bicarbonate 25 mmol/L (21-32); Glucose Level 99 mg/dL (74-106); Sodium Level 131 mmol/L (136-145); Troponin I < 0.02 ng/mL (0.0-0.045)
[2019-06-15] MEDS: NA CHLORIDE 0.9% 1,000 ML IV SCH ×2 (05:41→12:00)
--- NOTE | 2019-06-15 07:28 | EKG ---
Test Date: 2019-06-15 Test Time: 01:34:18 [employer]isher [employer]: JETHRO MEASUREMENT RESULTS: Intervals: Rate: 74 OR: 164 QRSD: 86 QT: 392 QTc: 435 Drury: P: 39 OR: 164 QRS: 34 T: 30 INTERPRETIVE STATEMENTS: Normal sinus rhythm Normal ECG Compared to ECG 12/13/2018 17:34:55 No significant changes Electronically Signed On 06-15-19 07:27:37 CDT by Nav Hernandez
--- NOTE | 2019-06-15 07:32 | P.SSS ---
Patient History Date of Service: 06/15/19 Reason for admission: Numbness of the bilateral hands and forearms; lightheaded History of Present Illness: Patient is a 59-year-old female came to the hospital with symptoms of being lightheaded and numbness of the hands and forearms. She states this is never happened to her before. In the emergency room her workup revealed she had hyponatremia. She is on HCTZ which is notorious for causing low sodium levels. She is also found to be B12 deficient. She denies any recent diarrhea or any upper respiratory illnesses. She had a CT in the emergency room which did not reveal any significant pathology. This was of the brain & the C-spine. Patient denies any chest pain or shortness of breath. Patient does not have any diaphoresis. At this time patient should be stable for discharge home. Will go ahead and get carotid Doppler and echocardiogram & if these are normal then we will proceed with discharge home. Allergies No Known Allergies Allergy (Verified 06/15/19 05:04) Home Medications: Atorvastatin Calcium [Lipitor*] 20 mg PO DAILY 12/14/18 Lisinopril/Hydrochlorothiazide [Lisinopril-Hctz 20-25 mg Tab] 20 - 25 mg PO DAILY 12/14/18 - Past Medical/Surgical History Has patient received pneumonia vaccine in the past: No Diabetic: No -: HTN -: hyperlipidemia -: tubal ligation -: cyst removal - Family History Father -: Heart disease Mother -: Hypertension, Cancer - Social History Smoking Status: Never smoker Alcohol use: Yes CD- Drugs: No Caffeine use: Yes Place of Residence: Home Review of Systems 10-point ROS is otherwise unremarkable Physical Examination - Vital Signs Temperature: 97.1 F Blood Pressure: 135/67 Pulse: 70 Respirations: 18 Pulse Ox (%): 94 - Physical Exam General: Alert, In no apparent distress, Oriented x3 HEENT: Atraumatic, PERRLA, Mucous membr. moist/pink, EOMI, Sclerae nonicteric Neck: Supple, 2+ carotid pulse no bruit, No LAD, Without JVD or thyroid abnormality Respiratory: Clear to auscultation bilaterally, Normal air movement Cardiovascular: Regular rate/rhythm, Normal S1 S2, No murmurs Gastrointestinal: Normal bowel sounds, Soft and benign, Non-distended, No tenderness Musculoskeletal: No clubbing, No swelling, No tenderness Integumentary: No rashes Neurological: Normal gait, Normal speech, Normal strength at 5/5 x4 extr, Normal tone, Sensation intact, Cranial nerves 3-12 intact, Normal affect Lymphatics: No axilla or inguinal lymphadenopathy - Studies Laboratory Data (last 24 hrs) 06/15/19 01:15: PT 11.3, INR 0.96 06/15/19 01:15: WBC 6.9, Hgb 13.6, Hct 38.1, Plt Count 263 06/15/19 01:15: Sodium 127 L, Potassium 3.2 L, BUN 9, Creatinine 0.57, Glucose 96, Magnesium 1.6 L, Total Bilirubin 0.8, AST 29, ALT 47, Alkaline Phosphatase 51, Lipase 123 - Diagnosis (Problem(s)) (1) Paresthesias in left hand Current Visit: Yes Status: Acute (2) Paresthesias in right hand Current Visit: Yes Status: Acute (3) Lightheadedness Current Visit: Yes Status: Acute (4) B12 deficiency Current Visit: Yes Status: Acute (5) Hyponatremia Current Visit: Yes Status: Acute Treatment Summary: Will stop patient's hydrochlorothiazide going forward. she can follow with the primary care provider if she has any swelling. Will also give her B12 supplementation. Thyroid studies are pending as well as carotid Doppler and echocardiogram. I anticipate these will be normal. If these are stable then she should be able to discharge home with outpatient follow-up. - Disposition Disposition: ROUTINE DISCHARGE Diet: Regular Activity: Fall precautions Critical Care: No Time Spent Managing Pts Care (In Minutes): 45
--- NOTE | 2019-06-15 08:37 | RAD REPORT ---
EXAM DESCRIPTION: RAD - Chest Single View - 06/15/2019 1:35 am CLINICAL HISTORY: COUGH COMPARISON: Portable chest December 13, 2018 TECHNIQUE: AP portable chest image was obtained 06/15/2019 1:35 am . FINDINGS: Lung volumes are low accentuating baseline interstitial pattern. No peripheral mass or con solidation. No significant failure or volume overload suspected. Heart and vasculature are normal. No measurable pleural effusion and no pneumothorax. No acute bony abnormality seen. No acute aortic fin dings suspected. IMPRESSION: No acute cardiopulmonary process. No significant change from comparison.
[2019-06-15] MEDS ORDERED: ASPIRIN EC 81 MG TAB PO SCH (09:00)
[2019-06-15 09:48] VITALS: O2SAT 97
--- NOTE | 2019-06-15 11:17 | RAD REPORT ---
EXAM DESCRIPTION: CT - [id number] - 06/15/2019 6:01 am CLINICAL HISTORY: The patient is 59 years old and is Female; PAIN TECHNIQUE: Axial computed tomography images of the head/brain and cervical spine without intravenous contrast. Sagittal and coronal reformatted images were created and reviewed. This CT exam was pe rformed using one or more of the following dose reduction techniques: automated exposure control, a djustment of the mA and/or kV according to patient size, and/or use of iterative reconstruction techn ique. COMPARISON: No relevant prior studies available. FINDINGS: BRAIN: Unremarkable. No hemorrhage. No significant white matter disease. No edema. VENTRICLES: Unremarkable. No ventriculomegaly. SKULL: No acute fracture. SINUSES: Unremarkable as visualized. No acute sinusitis. MASTOID AIR CELLS: Unremarkable as visualized. No mastoid effusion. VERTEBRAE: The vertebral body heights and alignment are maintained. No acute fracture. DISCS/SPINAL CANAL/NEURAL FORAMINA: The intervertebral disc spaces are maintained. No spinal can al stenosis. SOFT TISSUES: The soft tissues are normal. LUNG APICES: Unremarkable as visualized. IMPRESSION: 1. No acute intracranial findings. 2. No fracture or malalignment of the cervical spine. Electronically signed by: Karyn Vazquez MD 06/15/2019 4:28 AM CDT Due to temporary technical issues with the PACS/Fluency reporting system, reports are being signed by the in house radiologist as a courtesy to ensure prompt reporting. The interpreting radiologist is f ully responsible for the content of the report.
--- NOTE | 2019-06-15 12:31 | EKG ---
Test Date: 2019-06-15 Test Time: 11:10:59 Shipping Room Supervisor: PRABHU MEASUREMENT RESULTS: Intervals: Rate: 71 MS: 170 QRSD: 84 QT: 376 QTc: 408 Cameron: P: 55 MS: 170 QRS: 46 T: 45 INTERPRETIVE STATEMENTS: Normal sinus rhythm Normal ECG Compared to ECG 06/15/2019 01:34:18 No significant changes Electronically Signed On 06-15-19 12:30:44 CDT by Nav Hernandez
--- NOTE | 2019-06-15 14:36 | ECHO ---
HEIGHT: 5 ft 4 in WEIGHT: 154 lb 11.2 oz DATE OF STUDY: 06/15/[address]: Talat Ortega MD 2-DIMENSIONAL: YES M.MODE: YES DOPPLER: YES COLOR FLOW: YES TDS: NO PORTABLE: NO DEFINITY: NO BUBBLE STUDY: NO DIAGNOSIS: NEAR SYNCOPE CARDIAC HISTORY: CATHERIZATION: NO SURGERY: NO PROSTHETIC VALVE: NO PACEMAKER: NO MEASUREMENTS (cm) DIASTOLIC (NORMALS) SYSTOLIC (NORMALS) IVSd 1.0 (0.6-1.2) LA Diam 2.5 (1.9-4.0) LVEF 50% LVIDd 3.1 (3.5-5.7) LVIDs 2.3 (2.0-3.5) %FS 25% LVPWd 1.0 (0.6-1.2) Ao Diam 2.9 (2.0-3.7) 2 DIMENSIONAL ASSESSMENT: RIGHT ATRIUM: NORMAL LEFT ATRIUM: NORMAL RIGHT VENTRICLE: NORMAL LEFT VENTRICLE: NORMAL TRICUSPID VALVE: NORMAL MITRAL VALVE: NORMAL PULMONIC VALVE: NORMAL AORTIC VALVE: NORMAL PERICARDIAL EFFUSION: NONE AORTIC ROOT: NORMAL LEFT VENTRICULAR WALL MOTION: NORMAL DOPPLER/COLOR FLOW: NORMAL COMMENTS: NORMAL 2D ECHOCARDIOGRAM WITH DOPPLER. NO WALL MOTION ABNORMALITY. NO EFFUSION. TRACE TRICUSPID REGURGITATION. TECHNOLOGIST: Riri TIM
--- NOTE | 2019-06-15 16:03 | RAD REPORT ---
EXAM DESCRIPTION: USCarotid Artery Bilateral06/15/2019 3:32 pm CLINICAL HISTORY: syncope COMPARISON: None FINDINGS: The velocity of the right internal carotid artery equals 81 cm/sec. The right ICA/CCA rati o . The velocity of the left internal carotid artery equals 128 cm/sec. The left ICA/CCA ratio 1.2. The m ildly elevated velocity probably secondary to the artery being tortuous Plaque within the carotid arteries is not seen The vertebral arteries demonstrate antegrade flow IMPRESSION: Plaque is not visualized within the carotid arteries NASCET criteria used. Mild 0-49% stenosis Moderate 50-69% stenosis Severe 70-99% stenosis
[2019-06-15 17:45] VITALS: BP 148/68; TEMP 97.2
== END 2019-06-15 17:11 | disposition home or self-care (01) ==
LOC: ER 00:10 → ERHOLD 02:35 → 2ND 04:14
PROVIDERS: ADMIT Hospitalist; ATTEND Hospitalist
DX: R20.2 Paresthesia of skin (principal); R42 Dizziness and giddiness; E53.8 Deficiency of other specified B group vitamins; E87.1 Hypo-osmolality and hyponatremia; E87.6 Hypokalemia; R51 Headache; M79.632 Pain in left forearm; M79.631 Pain in right forearm; I10 Essential (primary) hypertension; E78.5 Hyperlipidemia, unspecified; Z79.899 Other long term (current) drug therapy
CPT/HCPCS: 96365; 93005 ×2; 93306; 87088; 85025 ×2; 87086; 80048 ×2; 36415; 83735; 85610; 80076; 84443; 84484 ×2; 84439; 82607; 83690; 84145; 83880; 70450; 72125; 71045; 93880; 96375; 96372; 99285; J3475; J1650; J2270; J0696; J7030; J2405; G0378 ×2; 81003; 81015

== ENCOUNTER 2021-11-07 08:36 | Emergency (ER) | payer BC ==
--- OUTSIDE RECORDS SUMMARY | 2021-11-07 08:39 | XMS REPORT | Continuity of Care Document ---
:1960 Author Organization [facility] t Address [address] [place] [address] Care Team Providers Name Role Phone JOHNNIE POSEY Attending Clinician Unavailable JOHNNIE POSEY Admitting Clinician Unavailable Problems This patient has no known problems. Allergies, Adverse Reactions, Alerts Allergy Allergy Status Severity Reaction(s) Onset Inactive Treating Comm ents Source Name Type Date Date Clinician NO KNOWN Allergy Active [facility] Medications This patient has no known medications. Procedures This patient has no known procedures. Results Test Description Test Time Test Comments Results Result [facility] e Comments MYOCARD IMAGING, 2018-02-16 Reason for FINAL REPORT PATIENT MULTI, SPECT 16:41:00 exam:->Chest ID: [id number] Pain PROCEDURE: Rest/Stress MYOCARDIAL PERFUSION SPECT with treadmill\XA9\ CPT CODE: 20395 INDICATION: Chest pain, chronic, high probability of CAD HISTORY: Recent cardiac symptoms: Chest pain. Current cardiovascular-relat ed medications: Atorvastatin, lisinopril. PROTOCOL: 10.3 mCi of [...] Normal extracardiac tracer distribution. 6. No previous [facility] study for comparison. Signed: Ina Curtis MDReport Verified Date/Time: 02/16/2018 16:41:31 Reading Location: [place] [id number] Reading Room GLOBIN A1C 2018-02-16 11:58:00 Test Item Value Reference Range Interpretation Comme nts HEMOGLOBIN A1C (BEAKER) (test code = 368) 5.3 % 4.3-6.1 LIPID [id number] 06:49:00 Test Item Value Reference Range Interpretation Comments TRIGLYCERIDES (BEAKER) (test code = 147 mg/dL 540) CHOLESTEROL (BEAKER) (test code = 181 mg/dL 631) HDL CHOLESTEROL (BEAKER) (test code 33 mg/dL = 976) LDL CHOLESTEROL CALCULATED (BEAKER) 119 mg/dL (test code = 633) Triglyceride Reference Range: Low Risk <150 Borderline 150-199 High Risk 200-499 Very High Risk >=500Cholesterol Reference Range: Low Risk <200 Borderline 200-239 High Risk >240HDL Cholesterol Reference Range: Low Risk >=60 High Risk <40LDL Cholesterol Reference Range: Optimal <100 Near Optimal 100-129 Borderline 130-159 High 160-189 Very High >=190BASIC METABOLIC [id number] 06:49:00 Test Item Value Reference Range Interpretation Comments SODIUM (BEAKER) 137 meq/L 136-145 (test code = 381) POTASSIUM (BEAKER) 3.7 meq/L 3.5-5.1 (test code = 379) CHLORIDE (BEAKER) 105 meq/L 98-107 (test code = 382) CO2 (BEAKER) (test 23 meq/L 22-29 code = 355) BLOOD UREA NITROGEN 14 mg/dL 7-21 (BEAKER) (test code = 354) CREATININE (BEAKER) 0.72 mg/dL 0.57-1.25 (test code = 358) GLUCOSE RANDOM 85 mg/dL 70-105 (BEAKER) (test code = 652) CALCIUM (BEAKER) 9.0 mg/dL 8.4-10.2 (test code = 697) EGFR (BEAKER) (test 83 mL/min/1.73 ESTIMA MARIAM GFR IS code = 1092) sq m NOT ACCURATE CREATININE CLEARANCE IN PREDICTING GLOMERULAR FILTRATION RATE . ESTIMATED GFR I S NOT APPLICABLE FOR DIALYSIS PATIEN TS. TROPONIN [id number] 06:28:00 Test Item Value Reference Range Interpretation Comments TROPONIN I (BEAKER) (test code = 397) < ng/mL 0.00-0.03 CBC W/PLT COUNT & AUTO [id number] 05:34:00 Test Item Value Reference Range Interpretation Comments WHITE BLOOD CELL COUNT (BEAKER) 6.8 K/ L 3.5-10.5 (test code = 775) RED BLOOD CELL COUNT (BEAKER) 4.24 M/ L 3.93-5.22 (test code = 761) HEMOGLOBIN (BEAKER) (test code = 13.5 GM/DL 11.2-15.7 410) HEMATOCRIT (BEAKER) (test code = 39.2 % 34.1-44.9 411) MEAN CORPUSCULAR VOLUME (BEAKER) 92.5 fL 79.4-94.8 (test code = 753) MEAN CORPUSCULAR HEMOGLOBIN 31.8 pg 25.6-32.2 (BEAKER) (test code = 751) MEAN CORPUSCULAR HEMOGLOBIN CONC 34.4 GM/DL 32.2-35.5 (BEAKER) (test code = 752) RED CELL DISTRIBUTION WIDTH 11.4 % 11.7-14.4 L (BEAKER) (test code = 412) PLATELET COUNT (BEAKER) (test 248 K/CU MM 150-450 code = 756) MEAN PLATELET VOLUME (BEAKER) 10.6 fL 9.4-12.3 (test code = 754) NUCLEATED RED BLOOD CELLS 0 /100 WBC 0-0 (BEAKER) (test code = 413) NEUTROPHILS RELATIVE PERCENT 50 % (BEAKER) (test code = 429) LYMPHOCYTES RELATIVE PERCENT 39 % (BEAKER) (test code = 430) MONOCYTES RELATIVE PERCENT 8 % (BEAKER) (test code = 431) EOSINOPHILS RELATIVE PERCENT 2 % (BEAKER) (test code = 432) BASOPHILS RELATIVE PERCENT 0 % (BEAKER) (test code = 437) NEUTROPHILS ABSOLUTE COUNT 3.37 K/ L 1.56-6.13 (BEAKER) (test code = 670) LYMPHOCYTES ABSOLUTE COUNT 2.66 K/ L 1.18-3.74 (BEAKER) (test code = 414) MONOCYTES ABSOLUTE COUNT (BEAKER) 0.56 K/ L 0.24-0.36 H (test code = 415) EOSINOPHILS ABSOLUTE COUNT 0.11 K/ L 0.04-0.36 (BEAKER) (test code = 416) BASOPHILS ABSOLUTE COUNT (BEAKER) 0.03 K/ L 0.01-0.08 (test code = 417) IMMATURE GRANULOCYTES-RELATIVE 0 % 0-1 PERCENT (BEAKER) (test code = 2801) TROPONIN [id number] 01:36:00 Test Item Value Reference Range Interpretation Comments TROPONIN I (BEAKER) (test code = 397) < ng/mL 0.00-0.03 [id number] 01:21:00 Test Item Value Reference Range Interpretation Comments POTASSIUM (BEAKER) (test code = 3.5 meq/L 3.5-5.1 379)
--- NOTE | 2021-11-07 09:27 | RAD REPORT ---
EXAM DESCRIPTION: CT - Head Brain Wo Cont - 11/07/2021 9:21 am CLINICAL HISTORY: weak Headache, drowsiness, weakness COMPARISON: HEAD BRAIN W O CONTRAST dated 08/17/2011 TECHNIQUE: All CT scans are performed using dose optimization technique as appropriate and may inclu de automated exposure control or mA/KV adjustment according to patient size. FINDINGS: No intracranial hemorrhage, hydrocephalus or extra-axial fluid collection.Mild brain atrop hy.No areas of brain edema or evidence of midline shift. The paranasal sinuses and mastoids are clear. The calvarium is intact. IMPRESSION: No acute intracranial abnormality.
[2021-11-07] MEDS ORDERED: LORazepam 2 MG/ML VIAL ONE (09:36)
[2021-11-07] MEDS ORDERED: NA CHLORIDE 0.9% 1,000 ML ONE (09:36)
[2021-11-07 09:47] LABS: Urine Blood Negative (Negative); Urine Glucose Negative (Negative); Urine Protein Negative (Negative)
[2021-11-07 10:02] LABS: Absolute Lymphocytes (CBC) 1.5 K/uL (0.7-4.9); Hematocrit 41.5 % (36.0-45.0); Lymphocytes % 25.3 % (15.3-44.8); MCV 92.2 fL (80-100); MPV 8.3 fL (7.6-11.3)
[2021-11-07] MEDS ORDERED: HYDRALAZINE HCL 20 MG/ML VIAL ONE (10:04)
[2021-11-07 10:06] LABS: Protime INR 0.95
[2021-11-07 10:09] LABS: Barbiturates NEGATIVE (NEGATIVE); Benzodiazepines NEGATIVE (NEGATIVE); Cocaine NEGATIVE (NEGATIVE); METHAMPHETAM NEGATIVE (NEGATIVE); Methadone NEGATIVE (NEGATIVE); Opiates NEGATIVE (NEGATIVE); Phencyclidine NEGATIVE (NEGATIVE); THC Cannibis NEGATIVE (NEGATIVE)
[2021-11-07 10:36] LABS: ALT/SGPT 63 U/L (12-78); AST/SGOT 34 U/L (15-37); Albumin 4.2 g/dL (3.4-5.0); Alkaline Phosphatase 67 U/L (45-117); BUN Blood Urea Nitrogen 9 mg/dL (7-18); Bicarbonate 27 mmol/L (21-32); Bilirubin Direct 0.2 mg/dL (0-0.2); Bilirubin Total 0.8 mg/dL (0.2-1.0); Glomerular Filtration Rate 100 ml/min (=/>90); Glucose Level 101 mg/dL (74-106); Potassium 4.4 mmol/L (3.5-5.1); Protein, Total 7.5 g/dL (6.4-8.2); Sodium Level 134 mmol/L (136-145)
[2021-11-07] MEDS ORDERED: CEFTRIAXONE 1000 MG/VIAL ONE (10:39)
--- NOTE | 2021-11-07 11:52 | ER ---
Nurse's Notes [facility] Name: Pallavi Jimenez Age: 61 yrs Sex: Female : 1960 Arrival Date: 11/07/2021 Time: 08:37 Bed 5 Private MD: Nancy Smith H Diagnosis: Weakness;UTI/ Urinary tract infection, site not specified;Anxiety disorder, unspecified Presentation: 11/07 08:54 Chief complaint: Patient states: I got the shakes X 1 month , jose more on left side, iw gets worse when I try to sleep, I woke up extra shaky this morning and have a lot of anxiety. Coronavirus screen: At this time, the client does not indicate any symptoms associated with coronavirus-19. Ebola Screen: Patient negative for fever greater than or equal to 101.5 degrees Fahrenheit, and additional compatible Ebola Virus Disease symptoms Patient denies exposure to infectious person. Patient denies travel to an Ebola-affected area in the 21 days before illness onset. No symptoms or risks identified at this time. Initial Sepsis Screen: Does the patient meet any 2 criteria? No. Patient's initial sepsis screen is negative. Does the patient have a suspected source of infection? No. Patient's initial sepsis screen is negative. Risk Assessment: Do you want to hurt yourself or someone else? Patient reports no desire to harm self or others. Onset of symptoms was October 2021. 08:54 Method Of Arrival: Ambulatory iw 08:54 Acuity: JENNY 3 iw Historical: - Allergies: 08:56 No Known Allergies; iw - Home Meds: 08:56 atorvastatin 40 mg Oral tab 1 tab once daily [Active]; lisinopril 20 mg Oral tab 1 tab iw once daily [Active]; - PMHx: 08:56 Hyperlipidemia; Hypertension; iw - Immunization history:: Client reports having NOT received the Covid vaccine. - Social history:: Smoking status: Patient denies any tobacco usage or history of. - Family history:: not pertinent. Screenin:50 Abuse screen: Denies threats or abuse. Denies injuries from another. Nutritional jl7 screening: No deficits noted. Tuberculosis screening: No symptoms or risk factors identified. Fall Risk IV access (20 points). Total Najera Fall Scale indicates No Risk (0-24 pts). Assessment: 09:50 General: Appears in no apparent distress. uncomfortable, Behavior is cooperative, jl7 anxious. Pain: Denies pain. Neuro: Level of Consciousness is awake, alert, obeys commands, Oriented to person, place, time, situation. Cardiovascular: Patient's skin is warm and dry. Rhythm is regular Chest pain is denied. Respiratory: Airway is patent Respiratory effort is even, unlabored, Respiratory pattern is regular, symmetrical. Derm: Skin is pink, warm \T\ dry. 10:20 Reassessment: ERD at bedside. jl7 11:00 Reassessment: Patient appears in no apparent distress at this time. No changes from jl7 previously documented assessment. Patient and/or family updated on plan of care and expected duration. Pain level reassessed. Patient is alert, oriented x 3, equal unlabored respirations, skin warm/dry/pink. Vital Signs: 08:54 BP 169 / 99; Pulse 86; Resp 16; Temp 97.1; Pulse Ox 99% on R/A; iw 09:50 BP 167 / 95; Pulse 80; Resp 15; Pulse Ox 98% ; Pain 0/10; jl7 11:30 BP 136 / 81; Pulse 85; Resp 15; Pulse Ox 99% ; jl7 ED Course: 08:37 Patient arrived in ED. am2 08:37 Nancy Smith DO is Private Physician. am2 08:56 Triage completed. iw 08:56 Arm band placed on. iw 08:59 Davonte Rosario MD is Attending Physician. paty 09:14 Sher Dietrich RN is Primary Nurse. jl7 09:21 CT Head Brain wo Cont In Process Unspecified. EDMS 09:50 Patient has correct armband on for positive identification. Bed in low position. Call jl7 light in reach. Side rails up X 1. 09:50 Initial lab(s) drawn, by me, sent to lab. Urine collected: clean catch specimen, clear. jl7 Inserted saline lock: 20 gauge in left antecubital area, using aseptic technique. Blood collected. 11:51 Nancy Smith DO is Referral Physician. paty 11:51 Jenna Bautista MD is Referral Physician. paty 12:07 No provider procedures requiring assistance completed. IV discontinued, intact, jl7 bleeding controlled, No redness/swelling at site. Pressure dressing applied. Administered Medications: 09:40 Drug: Ativan (LORazepam) 1 mg Route: IVP; Site: left antecubital; jl7 10:38 Follow up: Response: No adverse reaction; No change in condition jl7 09:40 Drug: NS 0.9% 1000 ml Route: IV; Rate: 1 bolus; Site: left antecubital; jl7 11:00 Follow up: Response: No adverse reaction; IV Status: Infusion continued; IV Intake: jl7 1000ml 10:37 Drug: Rocephin (cefTRIAXone) 1 grams Route: IV; Rate: per protocol; Site: left jl7 antecubital; 10:40 Follow up: Response: No adverse reaction; IV Status: Completed infusion jl7 12:00 Drug: KLONopin (clonazePAM) 1 mg Route: PO; jl7 12:06 Follow up: Response: Medication administered at discharge. jl7 Medication: 09:50 VIS not applicable for this client. jl7 Intake: 11:00 IV: 1000ml; Total: 1000ml. jl7 Outcome: 11:51 Discharge ordered by MD. newman 12:07 Discharged to home ambulatory, with family. jl7 12:07 Condition: stable 12:07 Discharge instructions given to patient, family, Instructed on discharge instructions, follow up and referral plans. medication usage, Demonstrated understanding of instructions, follow-up care, medications, Prescriptions given X 2. 12:08 Patient left the ED. jl7 Signatures: Dispatcher [employer] Davonte Pool MD MD cha Williams, Irene, RN RN iw Leal, Jahala, RN RN jl7 Moreno, Amanda am2
--- NOTE | 2021-11-07 11:52 | EDPHYS ---
Physician Documentation [facility] Name: Pallavi Jimenez Age: 61 yrs Sex: Female : 1960 Arrival Date: 11/07/2021 Time: 08:37 Bed 5 Private MD: Nancy Smith H ED Physician Davonte Rosario HPI: 11/07 10:30 This 61 yrs old Female presents to ER via Ambulatory with complaints of paty shaking. 10:30 weak, shakey , not feeling well. Onset: The symptoms/episode began/occurred 3 day(s) paty ago. Severity of symptoms: At their worst the symptoms were mild in the emergency department the symptoms are unchanged. The patient has not experienced similar symptoms in the past. Historical: - Allergies: 08:56 No Known Allergies; iw - Home Meds: 08:56 atorvastatin 40 mg Oral tab 1 tab once daily [Active]; lisinopril 20 mg Oral tab 1 tab iw once daily [Active]; - PMHx: 08:56 Hyperlipidemia; Hypertension; iw - Immunization history:: Client reports having NOT received the Covid vaccine. - Social history:: Smoking status: Patient denies any tobacco usage or history of. - Family history:: not pertinent. ROS: 10:30 Constitutional: Negative for fever, chills, and weight loss, Eyes: Negative for injury, paty pain, redness, and discharge, ENT: Negative for injury, pain, and discharge, Neck: Negative for injury, pain, and swelling, Cardiovascular: Negative for chest pain, palpitations, and edema, Respiratory: Negative for shortness of breath, cough, wheezing, and pleuritic chest pain, Abdomen/GI: Negative for abdominal pain, nausea, vomiting, diarrhea, and constipation, Back: Negative for injury and pain, : Negative for injury, bleeding, discharge, and swelling, MS/Extremity: Negative for injury and deformity, Skin: Negative for injury, rash, and discoloration, Psych: Negative for depression, anxiety, suicide ideation, homicidal ideation, and hallucinations, Allergy/Immunology: Negative for hives, rash, and allergies, Endocrine: Negative for neck swelling, polydipsia, polyuria, polyphagia, and marked weight changes, Hematologic/Lymphatic: Negative for swollen nodes, abnormal bleeding, and unusual bruising. 10:30 Neuro: Positive for dizziness, weakness. Exam: 10:30 Constitutional: This is a well developed, well nourished patient who is awake, alert, paty and in no acute distress. Head/Face: Normocephalic, atraumatic. Eyes: Pupils equal round and reactive to light, extra-ocular motions intact. Lids and lashes normal. Conjunctiva and sclera are non-icteric and not injected. Cornea within normal limits. Periorbital areas with no swelling, redness, or edema. ENT: Nares patent. No nasal discharge, no septal abnormalities noted. Tympanic membranes are normal and external auditory canals are clear. Oropharynx with no redness, swelling, or masses, exudates, or evidence of obstruction, uvula midline. Mucous membranes moist. Neck: Trachea midline, no thyromegaly or masses palpated, and no cervical lymphadenopathy. Supple, full range of motion without nuchal rigidity, or vertebral point tenderness. No Meningismus. Chest/axilla: Normal chest wall appearance and motion. Nontender with no deformity. No lesions are appreciated. Cardiovascular: Regular rate and rhythm with a normal S1 and S2. No gallops, murmurs, or rubs. Normal PMI, no JVD. No pulse deficits. Respiratory: Lungs have equal breath sounds bilaterally, clear to auscultation and percussion. No rales, rhonchi or wheezes noted. No increased work of breathing, no retractions or nasal flaring. Abdomen/GI: Soft, non-tender, with normal bowel sounds. No distension or tympany. No guarding or rebound. No evidence of tenderness throughout. Female : Normal external genitalia. Skin: Warm, dry with normal turgor. Normal color with no rashes, no lesions, and no evidence of cellulitis. MS/ Extremity: Pulses equal, no cyanosis. Neurovascular intact. Full, normal range of motion. Neuro: Awake and alert, GCS 15, oriented to person, place, time, and situation. Cranial nerves II-XII grossly intact. Motor strength 5/5 in all extremities. Sensory grossly intact. Cerebellar exam normal. Normal gait. Psych: Awake, alert, with orientation to person, place and time. Behavior, mood, and affect are within normal limits. 10:30 ECG was reviewed by the Attending Physician. Vital Signs: 08:54 BP 169 / 99; Pulse 86; Resp 16; Temp 97.1; Pulse Ox 99% on R/A; iw 09:50 BP 167 / 95; Pulse 80; Resp 15; Pulse Ox 98% ; Pain 0/10; jl7 11:30 BP 136 / 81; Pulse 85; Resp 15; Pulse Ox 99% ; jl7 MDM: 08:59 Patient medically screened. [facility] 10:32 Data reviewed: vital signs, nurses notes, lab test result(s), EKG, radiologic studies, paty CT scan. Data interpreted: chief design branch: rate is 80 beats/min, rhythm is regular, Pulse oximetry: on room air is 98 %. Test interpretation: by ED physician or midlevel provider: ECG. Counseling: I had a detailed discussion with the patient and/or guardian regarding: the historical points, exam findings, and any diagnostic results supporting the discharge/admit diagnosis, lab results, radiology results, the need for outpatient follow up, for definitive care, a family practitioner, an OB/Gyne specialist. 11/07 09:00 Order name: Acetaminophen; Complete Time: 11:50 [facility] 11/07 09:00 Order name: Basic Metabolic Panel; Complete Time: 11:50 [facility] 11/07 09:00 Order name: CBC with Diff; Complete Time: 10:29 [facility] 11/07 09:00 Order name: ETOH Level; Complete Time: 10:29 [facility] 11/07 09:00 Order name: Hepatic Function; Complete Time: 11:50 [facility] 11/07 09:00 Order name: PT-INR; Complete Time: 10:29 [facility] 11/07 09:00 Order name: Ptt, Activated; Complete Time: 10:29 [facility] 11/07 09:00 Order name: Salicylate; Complete Time: 11:50 [facility] 11/07 09:00 Order name: Urine Drug Screen; Complete Time: 10:29 [facility] 11/07 09:00 Order name: CT Head Brain wo Cont; Complete Time: 10:29 [facility] 11/07 09:47 Order name: Urine Dipstick-Ancillary; Complete Time: 10:29 EDMS 11/07 09:49 Order name: Urine Culture 7 11/07 10:29 Order name: TSH; Complete Time: 11:50 [facility] 11/07 09:00 Order name: EKG; Complete Time: 09:01 [facility] 11/07 09:00 Order name: EKG - Nurse/Tech; Complete Time: 10:00 [facility] 11/07 09:00 Order name: IV Saline Lock; Complete Time: 49 paty 11/07 09:00 Order name: Labs collected and sent; Complete Time: paty 11/07 09:00 Order name: Suicide Screening ([place]); Complete Time: paty 11/07 09:00 Order name: Urine Dipstick-Ancillary (obtain specimen); Complete Time: : [facility] EC:30 Rate is 80 beats/min. Rhythm is regular. QRS [place] is Normal. [place] interval is normal. QRS paty interval is normal. QT interval is normal. No Q waves. T waves are Normal. No ST changes noted. Clinical impression: NSR w/ Non-specific ST/T Changes and No evidence of ischemia. Interpreted by me. Reviewed by me. Administered Medications: 09:40 Drug: Ativan (LORazepam) 1 mg Route: IVP; Site: left antecubital; jl7 10:38 Follow up: Response: No adverse reaction; No change in condition jl 09:40 Drug: NS 0.9% 1000 ml Route: IV; Rate: 1 bolus; Site: left antecubital; jl7 11:00 Follow up: Response: No adverse reaction; IV Status: Infusion continued; IV Intake: jl7 1000ml 10:37 Drug: Rocephin (cefTRIAXone) 1 grams Route: IV; Rate: per protocol; Site: left [facility] antecubital; 10:40 Follow up: Response: No adverse reaction; IV Status: Completed infusion jl7 12:00 Drug: KLONopin (clonazePAM) 1 mg Route: PO; jl7 12:06 Follow up: Response: Medication administered at discharge. jl7 Disposition Summary: 11/07/21 11:51 Discharge Ordered Location: Home paty Problem: new paty Symptoms: have improved paty Condition: Stable paty Diagnosis - Weakness paty - UTI/ Urinary tract infection, site not specified paty - Anxiety disorder, unspecified paty Followup: paty - With: - When: 2 - 3 days - Reason: Recheck today's complaints, Continuance of care, Re-evaluation by your physician Followup: paty - With: - When: 2 - 3 days - Reason: Recheck today's complaints, Continuance of care, Re-evaluation by your physician Discharge Instructions: - Discharge Summary Sheet paty - Urinary Tract Infection, Adult paty - Weakness paty - Fatigue paty - Urinary Tract Infection, Adult, Oqih-qc-Tgle paty - Weakness, Qzxu-gm-Mrmy [facility] - Managing Anxiety, Adult [facility] Forms: - Medication Reconciliation Form [facility] - Thank You Letter [facility] - Antibiotic Education [facility] - Prescription Opioid Use [facility] Prescriptions: - Cipro 250 mg Oral Tablet - take 1 tablet by ORAL route every 12 hours; 14 tablet; Refills: 0, Product [facility] Selection Permitted - Klonopin 0.5 mg Oral Tablet - take 1 tablet by ORAL route every 12 hours As needed; 30 tablet; Refills: 0, [facility] Product Selection Permitted Signatures: Dispatcher [employer] EDDavonte Alfaro MD MD cha Williams, Irene, RN RN Sher Duffy RN RN jl7
[2021-11-07] MEDS ORDERED: clonazePAM 1 MG TAB ONE (12:07)
[2021-11-07 12:45] VITALS: TEMP 97.1
[2021-11-07 12:49] VITALS: BP 136/81; O2SAT 99
--- NOTE | 2021-11-09 13:49 | EKG ---
Test Date: 2021-11-07 Test Time: 10:00:14 Accounts Supervisor: PAUL MEASUREMENT RESULTS: Intervals: Rate: 80 IN: 158 QRSD: 84 QT: 360 QTc: 415 [place]: P: 64 IN: 158 QRS: 61 T: 50 INTERPRETIVE STATEMENTS: Normal sinus rhythm Normal ECG Compared to ECG 06/15/2019 11:10:59 No significant changes Electronically Signed On 11-09-21 13:46:08 CDT by Gennaro Mac
== END 2021-11-07 12:08 | disposition home or self-care (01) ==
LOC: ER 08:36
DX: N39.0 Urinary tract infection, site not specified (principal); F41.9 Anxiety disorder, unspecified; I10 Essential (primary) hypertension; E78.5 Hyperlipidemia, unspecified
CPT/HCPCS: 96361; 93005; 87088; 85025; 87086; 80048; 36415; 80320; 80329 ×2; 85610; 80076; 85730; 84443; 81003; 80307; 70450; 96375; 96374; 99284; J0360; J7030

== ENCOUNTER 2021-11-23 08:26 | Emergency (ER) | payer BC ==
--- OUTSIDE RECORDS SUMMARY | 2021-11-23 08:29 | XMS REPORT | Continuity of Care Document ---
:[address] [facility] t Address [address] [place] [address] Care Team Providers Name Role Phone JOHNNIE POSEY Attending Clinician Unavailable JOHNNIE POSEY Admitting Clinician Unavailable Problems This patient has no known problems. Allergies, Adverse Reactions, Alerts Allergy Allergy Status Severity Reaction(s) Onset Inactive Treating Comm ents Source Name Type Date Date Clinician NO KNOWN Allergy Active [facility] Medications This patient has no known medications. Procedures This patient has no known procedures. Results Test Description Test Time Test Comments Results Result [facility] e Comments MYOCARD IMAGING, 2018-02-16 Reason for FINAL REPORT PATIENT MULTI, SPECT 16:41:00 exam:->Chest ID: [id number] Pain PROCEDURE: Rest/Stress MYOCARDIAL PERFUSION SPECT with treadmill\XA9\ CPT CODE: 71533 INDICATION: Chest pain, chronic, high probability of [...] Normal extracardiac tracer distribution. 6. No previous [facility] study for comparison. Signed: Ina Curtis MDReport Verified Date/Time: 02/16/2018 16:41:31 Reading Location: [place] [id number] Reading Room GLOBIN A1C 2018-02-16 11:58:00 Test Item Value Reference Range Interpretation Comme nts HEMOGLOBIN A1C (BEAKER) (test code = 368) 5.3 % 4.3-6.1 LIPID [id number] 06:49:00 Test Item Value Reference Range Interpretation [...] 130-159 High 160-189 Very High >=190BASIC METABOLIC [id number] 06:49:00 Test Item Value Reference Range Interpretation [...] NOT APPLICABLE FOR DIALYSIS PATIEN TS. TROPONIN [id number] 06:28:00 Test Item Value Reference Range Interpretation Comments TROPONIN I (BEAKER) (test code = 397) < ng/mL 0.00-0.03 CBC W/PLT COUNT & AUTO [id number] 05:34:00 Test Item Value Reference Range Interpretation [...] PERCENT (BEAKER) (test code = 2801) TROPONIN [id number] 01:36:00 Test Item Value Reference Range Interpretation Comments TROPONIN I (BEAKER) (test code = 397) < ng/mL 0.00-0.03 [id number] 01:21:00 Test Item Value Reference Range Interpretation Comments POTASSIUM (BEAKER) (test code = 3.5 meq/L 3.5-5.1 379)
[2021-11-23 09:01] LABS: Absolute Lymphocytes (CBC) 2.8 K/uL (0.7-4.9); Hematocrit 41.7 % (36.0-45.0); Lymphocytes % 35.6 % (15.3-44.8); MCV 91.9 fL (80-100); RBC Red Blood Cell Count 4.53 M/uL (3.86-4.86)
[2021-11-23 09:19] LABS: BUN Blood Urea Nitrogen 10 mg/dL (7-18); Bicarbonate 29 mmol/L (21-32); Glomerular Filtration Rate 95 ml/min (=/>90); Glucose Level 106 mg/dL (74-106); Magnesium 2.2 mg/dL (1.8-2.4); NT PRO-BNP 42 pg/mL (<125); Potassium 4.3 mmol/L (3.5-5.1); Sodium Level 139 mmol/L (136-145)
[2021-11-23 09:26] LABS: Troponin High Sensitivity < 3.0 pg/mL (<58.9)
--- NOTE | 2021-11-23 09:32 | RAD REPORT ---
EXAM DESCRIPTION: CTAngio Aorta For Dissection - 11/23/2021 9:20 am CLINICAL HISTORY: acute left arm pain, BP 180/110 COMPARISON: No comparisons TECHNIQUE: CT of the chest, abdomen, and pelvis was performed. All CT scans are performed using dose optimization technique as appropriate and may include automated exposure control or mA/KV adjustment according to patient size. Dynamically enhanced axial 3 mm thick images of the chest were obtained during administration of <100 > mL Isovue 370 IV contrast. Coronal and oblique reconstruction images were generated and reviewed. [facility] utilizes a protocol for optimal evaluation of the thoracic aorta. Maximum intensity projections 3D imaging was utilized FINDINGS: Thorax: Chest Wall: No abnormal mass Lungs: No acute abnormality. Pleura: No effusions or pneumothorax. Geetha/Mediastinum: No lymphadenopathy. Aorta/Pulmonary Arteries: Unremarkable Heart: Normal size. Abdomen/Pelvis: Liver: Hepatic steatosis Biliary: No biliary ductal dilatation. Stomach: No significant focal abnormality. Duodenum: No significant focal abnormality. Pancreas: No significant abnormality. Spleen: No significant abnormality. Adrenal: No suspicious lesions. Kidney/ureter: No hydronephrosis. No renal calculi. Retroperitoneum: No retroperitoneal adenopathy. Vascular: No aneurysm. Mild atherosclerosis. Bowel: No significant focal abnormality. Peritoneum: No ascites or free air. Small fat containing umbilical hernia. Bladder: Grossly unremarkable. Reproductive: 3.5 cm right adnexal cystic lesion. Bones: No acute fracture. Other: n/a IMPRESSION: 1. Negative for aortic aneurysm, aortic dissection, or pulmonary embolus. 2. Right adnexal cystic lesion which is probably benign but given the patient's age, 12 month follow- up pelvic ultrasound is recommended.
--- NOTE | 2021-11-23 09:39 | RAD REPORT ---
EXAM DESCRIPTION: US - UPPER EXTREMITY VENOUS UNILATE - 11/23/2021 9:18 am CLINICAL HISTORY: Pain COMPARISON: None. TECHNIQUE: Real-time sonographic evaluation of the left upper extremity deep venous system was perfo rmed. FINDINGS: Normal compressibility, flow augmentation, phasic flow and spontaneous flow is identified in the left upper extremity deep venous system. No intraluminal filling defects seen. IMPRESSION: No DVT in the left upper extremity.
--- NOTE | 2021-11-23 10:44 | RAD REPORT ---
EXAM DESCRIPTION: RAD - Chest Single View - 11/23/2021 10:01 am CLINICAL HISTORY: left arm pain COMPARISON: Chest Single View dated 06/15/2019; Chest Single View dated 12/13/2018; CHEST SINGLE VIEW dated 08/17/2011 FINDINGS: Lines: None. Lungs: No evidence of edema or pneumonia. Pleural: No significant pleural effusions or pneumothorax. Cardiac: The heart size is within normal limits. Bones: No acute fractures. Other: IMPRESSION: No acute cardiopulmonary disease.
--- NOTE | 2021-11-23 11:44 | EDPHYS ---
[facility] Name: Pallavi Jimenez Age: 61 yrs Sex: Female : 1960 Arrival Date: 11/23/2021 Time: 08:29 Bed 7 Private MD: Nancy Smith H ED Physician Zachery Velasquez HPI: 11/23 08:46 This 61 yrs old Female presents to ER via Ambulatory with complaints of Arm Pain. rn 08:46 The patient or guardian complains of pain, that is acute. The complaints affect the rn anterior aspect of left shoulder, left bicep and left antecubital area. Onset: The symptoms/episode began/occurred yesterday. Treatment prior to arrival includes: no previous treatment. Modifying factors: The symptoms are alleviated by nothing. the symptoms are aggravated by nothing. Severity of symptoms: At their worst the symptoms were moderate, in the emergency department the symptoms have improved. The patient has experienced a previous episode. The patient has not recently seen a physician. Pt reports began with LUE pain yesterday, not getting better. No trauma. No chest pain/sob/abd pain. No vomiting. Reports "feels shaky". No hx of cardiac problems. No recent injury or splinting/immobilization.. Historical: - Allergies: 08:43 No Known Allergies; ss - PMHx: 08:43 Hyperlipidemia; Hypertension; ss - Immunization history:: Client reports having NOT received the Covid vaccine. - Social history:: Smoking status: Patient denies any tobacco usage or history of. Patient uses alcohol, on a daily basis. "3 beers/. day". Patient/guardian denies using street drugs. - Family history:: not pertinent. - Hospitalizations: : No recent hospitalization is reported. ROS: 08:46 Constitutional: Negative for fever, chills, and weight loss, Eyes: Negative for injury, rn pain, redness, and discharge, Neck: Negative for injury, pain, and swelling, Cardiovascular: Negative for chest pain, palpitations, and edema, Respiratory: Negative for shortness of breath, cough, wheezing, and pleuritic chest pain, Abdomen/GI: Negative for abdominal pain, nausea, vomiting, diarrhea, and constipation, Back: Negative for injury and pain, : Negative for injury, bleeding, discharge, and swelling, MS/Extremity: Negative for injury and deformity, Skin: Negative for injury, rash, and discoloration, Neuro: Negative for headache, weakness, and seizure Exam: 08:46 Constitutional: This is a well developed, well nourished patient who is awake, alert, rn and in no acute distress, seems anxious Head/Face: Normocephalic, atraumatic. Neck: Trachea midline, no thyromegaly or masses palpated, and no cervical lymphadenopathy. Supple, full range of motion without nuchal rigidity, or vertebral point tenderness. No Meningismus. Cardiovascular: Regular rate and rhythm with a normal S1 and S2. No gallops, murmurs, or rubs. Normal PMI, no JVD. No pulse deficits. Respiratory: Lungs have equal breath sounds bilaterally, clear to auscultation and percussion. No rales, rhonchi or wheezes noted. No increased work of breathing, no retractions or nasal flaring. Abdomen/GI: Soft, non-tender, with normal bowel sounds. No distension or tympany. No guarding or rebound. No evidence of tenderness throughout. Back: No spinal tenderness. No costovertebral tenderness. Full range of motion. Skin: Warm, dry with normal turgor. Normal color with no rashes, no lesions, and no evidence of cellulitis. MS/ Extremity: Pulses equal, no cyanosis. Neurovascular intact. Full, normal range of motion. Equal circumference. Neuro: Awake and alert, GCS 15, oriented to person, place, time, and situation. Cranial nerves II-XII grossly intact. Motor strength 5/5 in all extremities. Sensory grossly intact. 08:53 ECG was reviewed by the Attending Physician. rn Vital Signs: 08:40 BP 187 / 105; Pulse 83; Resp 18; Temp 97.4(TE); Pulse Ox 99% on R/A; ss 10:15 BP 162 / 93; Pulse 77; Resp 16 S; Pulse Ox 96% on R/A; jg9 11:15 BP 155 / 88; Pulse 76; Resp 14 S; Pulse Ox 98% on R/A; jg9 MDM: 08:31 Patient medically screened. rn 11:41 Differential diagnosis: neuropathy, radiculopathy, referred pain, AMI. Data reviewed: rn vital signs, nurses notes, lab test result(s), EKG, radiologic studies, CT scan, doppler, plain films, and as a result, I will discharge patient. Counseling: I had a detailed discussion with the patient and/or guardian regarding: the historical points, exam findings, and any diagnostic results supporting the discharge/admit diagnosis, lab results, radiology results, the need for outpatient follow up, to return to the emergency department if symptoms worsen or persist or if there are any questions or concerns that arise at home. Special discussion: I discussed with the patient/guardian in detail that at this point there is no indication for admission to the hospital. It is understood, however, that if the symptoms persist or worsen the patient needs to return immediately for re-evaluation. Based on the history and exam findings, there is no indication for further emergent testing or inpatient evaluation. I discussed with the patient/guardian the need to see the creative engagement director for further evaluation of the symptoms. I discussed with the patient/guardian the need to see the primary care provider for further evaluation of the symptoms. ED course: CT aorta neg, ultrasound neg for DVT, trop neg x 2, no ischemia on ecg. Will dc home with cardiology f/u and given return precautions. Pt still denies ever having chest pain, ruled out for acute cardiac event given possibility of referred pain to left arm, no acute findings, urge her to return if symptoms worsen and needs to f/u with pcp and cardiology. . 11/23 08:45 Order name: Basic Metabolic Panel; Complete Time: 09:30 rn 11/23 08:45 Order name: CBC with Diff; Complete Time: : rn 11/23 08:45 Order name: NT PRO-BNP; Complete Time: : rn 11/23 08:45 Order name: Troponin HS; Complete Time: : rn 11/23 08:46 Order name: Magnesium; Complete Time: 09:30 rn 11/23 10:55 Order name: Troponin High Sensitivity; Complete Time: 11:41 rn 11/23 08:45 Order name: XRAY Chest (1 view); Complete Time: 10:54 rn 11/23 08:45 Order name: EKG; Complete Time: 08:46 rn 11/23 08:45 Order name: Cardiac monitoring; Complete Time: 08:55 rn 11/23 08:45 Order name: EKG - Nurse/Tech; Complete Time: 08:55 rn 11/23 08:45 Order name: IV Saline Lock; Complete Time: 08:55 rn 11/23 08:45 Order name: CT Aorta for Dissection; Complete Time: 10:54 rn 11/23 08:45 Order name: Extremity Venous Uni Ltd US rn 11/23 08:49 Order name: UPPER EXTREMITY VENOUS UNILATE; Complete Time: 10:54 EDMS 11/23 08:45 Order name: Labs collected and sent; Complete Time: 08:55 rn 11/23 08:45 Order name: O2 Per Protocol; Complete Time: 08:55 rn 11/23 08:45 Order name: O2 Sat Monitoring; Complete Time: 08:55 rn EC:53 Rate is 70 beats/min. Rhythm is regular. QRS [place] is Normal. MA interval is normal. QRS rn interval is normal. QT interval is normal. No Q waves. T waves are Normal. No ST changes noted. Clinical impression: Normal ECG. Interpreted by me. Reviewed by me. Administered Medications: No medications were administered Disposition Summary: 11/23/21 11:43 Discharge Ordered Location: Home rn Problem: new rn Symptoms: have improved rn Condition: Stable rn Diagnosis - Pain in left upper arm rn Followup: rn - With: Nav Hernandez MD - When: 2 - 3 days - Reason: Recheck today's complaints, Re-evaluation by your physician Discharge Instructions: - Discharge Summary Sheet rn - Pain Without a Known Cause rn Forms: - Medication Reconciliation Form rn - Thank You Letter rn - Antibiotic rn acls - Prescription Opioid Use rn Signatures: Dispatcher [employer] Zachery Lopez MD MD rn Smirch, Shelby, RN RN ss
--- NOTE | 2021-11-23 11:44 | ER ---
Nurse's Notes [facility] Name: Pallavi Jimenez Age: 61 yrs Sex: Female : 1960 Arrival Date: 11/23/2021 Time: 08:29 Bed 7 Private MD: Nancy Smith H Diagnosis: Pain in left upper arm Presentation: 11/23 08:40 Chief complaint: Patient states: L upper arm pain that began "a couple days ago" No no ss injury. Pt also reports nausea at times and "just not feeling right." Denies fever. Coronavirus screen: Client denies travel out of the [place] in the last 14 days. Ebola Screen: Patient denies exposure to infectious person. Patient denies travel to an Ebola-affected area in the 21 days before illness onset. Initial Sepsis Screen: Does the patient meet any 2 criteria? No. Patient's initial sepsis screen is negative. Does the patient have a suspected source of infection? No. Patient's initial sepsis screen is negative. Risk Assessment: Do you want to hurt yourself or someone else? Patient reports no desire to harm self or others. Onset of symptoms. 08:40 Method Of Arrival: Ambulatory ss 08:40 Acuity: JENNY 3 ss Triage Assessment: 08:56 General: Appears in no apparent distress. Behavior is calm, cooperative. Pain: jh6 Complains of pain in posterior aspect of left shoulder, left axilla and left tricep Pain currently is 4 out of 10 on a pain scale. Quality of pain is described as aching, Pain began 1 day ago. Is intermittent, Alleviated by nothing. Historical: - Allergies: 08:43 No Known Allergies; ss - PMHx: 08:43 Hyperlipidemia; Hypertension; ss - Immunization history:: Client reports having NOT received the Covid vaccine. - Social history:: Smoking status: Patient denies any tobacco usage or history of. Patient uses alcohol, on a daily basis. "3 beers/. day". Patient/guardian denies using street drugs. - Family history:: not pertinent. - Hospitalizations: : No recent hospitalization is reported. Screenin:57 Abuse screen: Denies threats or abuse. Nutritional screening: No deficits noted. jh6 Tuberculosis screening: No symptoms or risk factors identified. Fall Risk None identified. Assessment: 08:57 General: Appears in no apparent distress. Behavior is calm, cooperative. Pain: jh6 Complains of pain in posterior aspect of left shoulder, left axilla, left tricep and left elbow Pain currently is 3 out of 10 on a pain scale. Quality of pain is described as aching, Pain began 1 day ago. Is intermittent, Alleviated by nothing. Neuro: No deficits noted. Level of Consciousness is awake, alert, obeys commands, Oriented to person, place, time, situation, [employer] are equal bilaterally Moves all extremities. Full function Gait is steady, Reports. 10:00 Reassessment: No changes from previously documented assessment. Patient and/or family jg9 updated on plan of care and expected duration. Pain level reassessed. Patient is alert, oriented x 3, equal unlabored respirations, skin warm/dry/pink. 11:00 Reassessment: Patient appears in no apparent distress at this time. No changes from jg9 previously documented assessment. Patient and/or family updated on plan of care and expected duration. Pain level reassessed. Patient is alert, oriented x 3, equal unlabored respirations, skin warm/dry/pink. Vital Signs: 08:40 BP 187 / 105; Pulse 83; Resp 18; Temp 97.4(TE); Pulse Ox 99% on R/A; ss 10:15 BP 162 / 93; Pulse 77; Resp 16 S; Pulse Ox 96% on R/A; jg9 11:15 BP 155 / 88; Pulse 76; Resp 14 S; Pulse Ox 98% on R/A; jg9 ED Course: 08:29 Patient arrived in ED. mr 08:29 Nancy Smith DO is Private Physician. mr 08:31 Zachery Velasquez MD is Attending Physician. rn 08:35 Eliza Glynn RN is Primary Nurse. jg9 08:43 Triage completed. ss 08:43 Arm band placed on right wrist. ss 08:56 No provider procedures requiring assistance completed. Initial lab(s) drawn, by ED [facility] staff, sent to lab. EKG done, by ED staff. 08:57 Inserted saline lock: 22 gauge in left antecubital area, using aseptic technique. Blood [facility] collected. 08:58 Bed in low position. Call light in reach. Side rails up X 1. Adult w/ patient. 6 09:20 UPPER EXTREMITY VENOUS UNILATE In Process Unspecified. EDMS 09:22 CT Aorta for Dissection In Process Unspecified. EDMS 10:03 XRAY Chest (1 view) In Process Unspecified. EDMS 10:18 No apparent distress. Resting quietly. Pt visited by . jg9 11:43 Nav Hernandez MD is Referral Physician. rn 11:59 IV discontinued. jg9 Administered Medications: No medications were administered Medication: 08:58 VIS not applicable for this client. [facility] Outcome: 11:43 Discharge ordered by . rn 11:59 Discharged to home ambulatory. jg9 11:59 Condition: unchanged 11:59 Discharge instructions given to patient, Instructed on discharge instructions, follow up and referral plans. Demonstrated understanding of instructions, follow-up care, Prescriptions given X 11:59 Patient left the ED. jg9 Signatures: Dispatcher [employer] EDWY FigueroaAlba Roman, MD MD rn Smirch, Shelby, RN RN ss Hastedt, Jennifer, RN RN jh6 Eliza Glynn RN RN jg9
[2021-11-23 12:17] VITALS: TEMP 97.4
[2021-11-23 12:19] VITALS: BP 155/88; O2SAT 98
--- NOTE | 2021-11-24 13:52 | EKG ---
Test Date: 2021-11-23 Test Time: 08:46:30 [employer] Supervisor: CHUY MEASUREMENT RESULTS: Intervals: Rate: 70 WA: 158 QRSD: 82 QT: 374 QTc: 403 [place]: P: 51 WA: 158 QRS: 28 T: 41 INTERPRETIVE STATEMENTS: Normal sinus rhythm Normal ECG Compared to ECG 11/23/2021 08:45:31 Atrial flutter no longer present Electronically Signed On 11-24-21 13:50:17 CDT by Gennaro Mac
== END 2021-11-23 11:59 | disposition home or self-care (01) ==
LOC: ER 08:26
DX: M79.622 Pain in left upper arm (principal); I10 Essential (primary) hypertension; E78.5 Hyperlipidemia, unspecified
CPT/HCPCS: 85025; 80048; 36415; 83735; 84484 ×2; 83880; 71275; 74175; 71045; 93971; Q9967; 93005; 99284

== ENCOUNTER 2022-03-12 21:33 | Emergency (ER) | payer BC ==
--- OUTSIDE RECORDS SUMMARY | 2022-03-12 21:35 | XMS REPORT | Continuity of Care Document ---
:1960 Author Organization [facility] t Address [address] [place] [address] Care Team Providers Name Role Phone JOHNNIE POSEY Attending Clinician Unavailable JOHNNIE POSEY Admitting Clinician Unavailable Problems Condition Condition Condition Status Onset Resolution Last Treating Co mments Source Name Details Category Date Date Treatment Clinician Date Chest pain Chest pain Disease Active 2017-[address] [facility] Allergies, Adverse Reactions, Alerts Allergy Allergy Status Severity Reaction(s) Onset Inactive Treating Comm ents Source Name Type Date Date Clinician NO KNOWN Allergy Active [facility] Family History Family Member Diagnosis Comments Start Date Stop Date Source Natural mother Hypertension [facility] Social History Social Habit Start Date Stop Date Quantity Comments Source History SDOH [facility] Frequency [facility] History SDSC [facility] Std Drinks [facility] History SDOH [facility] Alcohol Binge Medical Desi ter Tobacco use and 2018-02-15 2018-02-[address] [facility] exposure [facility] Alcohol intake 2018-02-15 2018-02-15 [facility] (finding) History SDOH 2018-02-15 2018-02-15 2-[address] [facility] Alcohol Comment 00:00:00 00:00:00 a day Medical C enter Sex Assigned At [address] [facility] Smoking Status Start Date Stop Date Source Never smoker [facility] Center Medications Ordered Filled Start Stop Current Ordering Indication Dosage Frequency Signature Comments Components Source Medication Medication Date Date Medication? Clinician (SIG) Name Name lisinopril 2017-04 Yes 20mg QD Take [address] (PRINIVIL,Z 1-15 by mouth [facility] ESTRIL) 20 18:18: daily. Medic al MG tablet 35 Center atorvastati 2017-04 Yes 20mg QD Take [address] [facility] (LIPITOR) 1-15 by mouth Luke [facility] 20 MG 18:18: daily. Medical tablet 35 Center Procedures This patient has no known procedures. Results Test Description Test Time Test Comments Results Result [facility] e Comments [facility]ARD IMAGING, 2018-02-16 Reason for FINAL REPORT PATIENT MULTI, SPECT 16:41:00 exam:->Chest ID: [id number] Pain PROCEDURE: Rest/Stress MYOCARDIAL PERFUSION SPECT with treadmill\XA9\ CPT CODE: 51986 INDICATION: Chest pain, chronic, high probability of [...] Normal extracardiac tracer distribution. 6. No previous [facility] study for comparison. Signed: Ina Curtis MDReport Verified Date/Time: 02/16/2018 16:41:31 Reading Location: [address] Reading Room GLOBIN A1C 2018-02-16 11:58:00 Test Item Value Reference Range Interpretation Comme nts HEMOGLOBIN A1C (BEAKER) (test code = 368) 5.3 % 4.3-6.1 LIPID [id number] 06:49:00 Test Item Value Reference Range Interpretation Comments TRIGLYCERIDES (BEAKER) (test code = 147 mg/dL 540) CHOLESTEROL (BEAKER) (test code = 181 mg/dL 631) HDL CHOLESTEROL (BEAKER) (test code 33 mg/dL = 976) LDL CHOLESTEROL CALCULATED (BEAKER) 119 mg/dL (test code = 633) Triglyceride Reference Range: Low Risk <150 Borderline 150-199 High Risk 200- 499 Very High Risk >=500Cholesterol Reference Range: Low Risk <200 Borderline 200-239 High Risk >240HDL Cholesterol Reference Range: Low Risk >=60 High Risk <40LDL Cholesterol Reference Range: Optimal <100 Near Optimal 100-129 Borderline 130-159 High 160-189 Very High >=190BASI METABOLIC [id number] 06:49:00 Test Item Value Reference Range Interpretation [...] NOT APPLICABLE FOR DIALYSIS PATIEN TS. TROPONIN [id number] 06:28:00 Test Item Value Reference Range Interpretation Comments TROPONIN I (BEAKER) (test code = 397) < ng/mL 0.00-0.03 CBC W/PLT COUNT & AUTO [id number] 05:34:00 Test Item Value Reference Range Interpretation [...] PERCENT (BEAKER) (test code = 2801) TROPONIN [id number] 01:36:00 Test Item Value Reference Range Interpretation Comments TROPONIN I (BEAKER) (test code = 397) < ng/mL 0.00-0.03 [id number] 01:21:00 Test Item Value Reference Range Interpretation Comments POTASSIUM (BEAKER) (test code = 3.5 meq/L 3.5-5.1 379)
[2022-03-12] MEDS ORDERED: SILVER NITRATE 1 APPL TOP ONE (22:20)
--- NOTE | 2022-03-12 23:24 | ER ---
Nurse's Notes [facility] Name: Pallavi Jimenez Age: 61 yrs Sex: Female : 1960 Arrival Date: 03/12/2022 Time: 21:59 Bed 14 Private MD: Diagnosis: Epistaxis Presentation: 03/12 22:00 Chief complaint: Patient states: Nose bleed - pt reports nose bleeds before. Had to ld1 have it cauterized before. Sneezed 1 hour ago - nose hasnt stopped bleeding. Coronavirus screen: At this time, the client does not indicate any symptoms associated with coronavirus-19. Ebola Screen: No symptoms or risks identified at this time. Initial Sepsis Screen: Does the patient meet any 2 criteria? No. Patient's initial sepsis screen is negative. Does the patient have a suspected source of infection? No. Patient's initial sepsis screen is negative. Risk Assessment: Do you want to hurt yourself or someone else? Patient reports no desire to harm self or others. Onset of symptoms was March 12, 2022. 22:00 Method Of Arrival: Ambulatory ld1 22:00 Acuity: JENNY 4 ld1 Triage Assessment: 22:02 General: Appears in no apparent distress. comfortable, Behavior is calm, cooperative, ld1 appropriate for age. Pain: Denies pain. EENT: No signs and/or symptoms were reported regarding the EENT system. Neuro: Level of Consciousness is awake, alert, obeys commands, Oriented to person, place, time, situation. Cardiovascular: Capillary refill < 3 seconds Patient's skin is warm and dry. Respiratory: Airway is patent Respiratory effort is even, unlabored. GI: Abdomen is round non-distended. : No signs and/or symptoms were reported regarding the genitourinary system. Derm: No signs and/or symptoms reported regarding the dermatologic system. Musculoskeletal: No signs and/or symptoms reported regarding the musculoskeletal system. Historical: - Allergies: 22:02 No Known Allergies; ld1 - PMHx: 22:02 Hyperlipidemia; Hypertension; ld1 - PSHx: 22:02 None; ld1 - Immunization history:: Adult Immunizations up to date, Client reports receiving the 2nd dose of the Covid vaccine. - Social history:: Smoking status: Patient denies any tobacco usage or history of. Patient/guardian denies using alcohol. Screenin:23 Abuse screen: Denies threats or abuse. Nutritional screening: No deficits noted. pf1 Tuberculosis screening: No symptoms or risk factors identified. Fall Risk None identified. Assessment: 22:16 General: Appears in no apparent distress. comfortable, well groomed, well developed, pf1 Behavior is calm, cooperative, appropriate for age, quiet. Pain: Denies pain. Neuro: No deficits noted. Level of Consciousness is awake, alert, obeys commands, Oriented to person, place, time, situation. Cardiovascular: No deficits noted. GI: No deficits noted. No signs and/or symptoms were reported involving the gastrointestinal system. : No deficits noted. No signs and/or symptoms were reported regarding the genitourinary system. EENT: Reports nasal discharge that is bloody Patient stated nose bleed,onset 2030 from right naris. Patient has tissue inserted to right naris at this time. No active bleeding noted at this time. Patient stated has a history of epistaxis and follows up Dr. Moya. Derm: No deficits noted. No signs and/or symptoms reported regarding the dermatologic system. Musculoskeletal: No deficits noted. No signs and/or symptoms reported regarding the musculoskeletal system. Vital Signs: 22:00 BP 175 / 93; Pulse 100; Resp 18; Temp 98.1(O); Pulse Ox 98% on R/A; Weight 70.31 kg; ld1 Height 5 ft. 4 in. (162.56 cm); Pain 0/10; 22:02 BP 160 / 93; ld1 22:23 BP 153 / 86; Pulse 96; Resp 18; Temp 98.1; Pulse Ox 96% ; Pain 0/10; pf1 23:32 BP 132 / 80; Pulse 92; Resp 18; Temp 98; Pulse Ox 96% ; Pain 0/10; pf1 22:00 Body Mass Index 26.61 (70.31 kg, 162.56 cm) ld1 Lelo Coma Score: 23:32 Eye Response: spontaneous(4). Verbal Response: oriented(5). Motor Response: obeys pf1 commands(6). Total: 15. ED Course: 21:59 Patient arrived in ED. as 22:02 Triage completed. ld1 22:02 Arm band placed on right wrist. ld1 22:06 Davonte Rodrigues PA is PHCP. cp 22:06 Andry Alvarado MD is Attending Physician. cp 22:16 Silva martinez, RN is Primary Nurse. pf1 23:00 No provider procedures requiring assistance completed. Assist provider with nosebleed pf1 control using Bleeding from right nares. Set up for procedure. Performed by Davonte WILLIAM silver nitrate used for right naris nosebleed. Patient did not have IV access during this emergency room visit. 23:33 Patient has correct armband on for positive identification. Bed in low position. Call pf1 light in reach. Administered Medications: No medications were administered Medication: 22:23 VIS not applicable for this client. pf1 Outcome: 23:23 Discharge ordered by MD. cp 23:32 Discharged to home ambulatory, with significant other. pf1 23:32 Condition: improved 23:32 Discharge instructions given to patient, Instructed on discharge instructions, follow up and referral plans. Demonstrated understanding of instructions, follow-up care. 23:33 Patient left the ED. pf1 Signatures: Louise Hendricks as Davonte Rodrigues PA PA cp Madelyn Gifford, RN RN ld1 Silva martinez, RN RN pf1
--- NOTE | 2022-03-12 23:24 | EDPHYS ---
Physician Documentation [facility] Name: Pallavi Jimenez Age: 61 yrs Sex: Female : 1960 Arrival Date: 03/12/2022 Time: 21:59 Bed 14 Private MD: ED Physician Andry Alvarado HPI: 03/12 22:30 This 61 yrs old Female presents to ER via Ambulatory with complaints of Nose Bleed. cp 22:30 The patient presents with a nose bleed, that is apparently anterior, from the right cp nare. Onset: The symptoms/episode began/occurred 1 hour(s) ago. 22:30 Associated signs and symptoms: The patient has no apparent associated signs or cp symptoms. Patient reports nose bleed from right nare that started over an hour ago after sneezing. Packed nare with tissue and bleeding has slowed. In the past has had to have nose cauterized to control bleeding. Historical: - Allergies: 22:02 No Known Allergies; ld1 - PMHx: 22:02 Hyperlipidemia; Hypertension; ld1 - PSHx: 22:02 None; ld1 - Immunization history:: Adult Immunizations up to date, Client reports receiving the 2nd dose of the Covid vaccine. - Social history:: Smoking status: Patient denies any tobacco usage or history of. Patient/guardian denies using alcohol. ROS: 22:35 Constitutional: Negative for body aches, chills, fever, poor PO intake. cp 22:35 Eyes: Negative for injury, pain, redness, and discharge. cp 22:35 ENT: Positive for nose bleed, Negative for drainage from ear(s), ear pain, sore throat, difficulty swallowing, difficulty handling secretions. 22:35 Respiratory: Negative for cough, shortness of breath, wheezing. 22:35 Abdomen/GI: Negative for abdominal pain, nausea, vomiting, and diarrhea. 22:35 Neuro: Negative for altered mental status, dizziness, headache, syncope, weakness. 22:35 All other systems are negative. Exam: 22:40 Constitutional: The patient appears in no acute distress, alert, awake, comfortable, cp non-toxic, well developed, well nourished. 22:40 Head/Face: Normocephalic, atraumatic. cp 22:40 Eyes: Periorbital structures: appear normal, Conjunctiva: normal, no exudate, no injection, Lids and lashes: appear normal, bilaterally. 22:40 ENT: External ear(s): are unremarkable, Nose: External nose: no obvious acute abnormality, Nasal mucosa: erythematous, bleeding, is seen from the right nare, and is minimal, Mouth: Lips: moist, Oral mucosa: moist, Posterior pharynx: Airway: no evidence of obstruction, patent, swelling, is not appreciated, erythema, is not appreciated, exudate, is not appreciated. 22:40 Chest/axilla: Inspection: normal. 22:40 Cardiovascular: Rate: normal, Rhythm: regular. 22:40 Respiratory: the patient does not display signs of respiratory distress, Respirations: normal, no use of accessory muscles, no retractions, labored breathing, is not present, Breath sounds: are clear throughout, no decreased breath sounds, no stridor, no wheezing. 22:40 Abdomen/GI: Exam negative for discomfort, distension, guarding, Inspection: abdomen appears normal. 22:40 Neuro: Orientation: to person, place \T\ time. Mentation: is normal, Motor: moves all fours, strength is normal, Sensation: is normal. Vital Signs: 22:00 BP 175 / 93; Pulse 100; Resp 18; Temp 98.1(O); Pulse Ox 98% on R/A; Weight 70.31 kg; ld1 Height 5 ft. 4 in. (162.56 cm); Pain 0/10; 22:02 BP 160 / 93; ld1 22:23 BP 153 / 86; Pulse 96; Resp 18; Temp 98.1; Pulse Ox 96% ; Pain 0/10; pf1 23:32 BP 132 / 80; Pulse 92; Resp 18; Temp 98; Pulse Ox 96% ; Pain 0/10; pf1 22:00 Body Mass Index 26.61 (70.31 kg, 162.56 cm) ld1 Lelo Coma Score: 23:32 Eye Response: spontaneous(4). Verbal Response: oriented(5). Motor Response: obeys pf1 commands(6). Total: 15. MDM: 22:08 Patient medically screened. cp 22:40 Differential diagnosis: trauma, sinusitis, epistaxis r/t trauma, spontaneous epistaxis. cp 23:23 Data reviewed: vital signs, nurses notes. cp 23:23 Counseling: I had a detailed discussion with the patient and/or guardian regarding: the cp historical points, exam findings, and any diagnostic results supporting the discharge/admit diagnosis, to return to the emergency department if symptoms worsen or persist or if there are any questions or concerns that arise at home. 23:23 Response to treatment: the patient's symptoms have markedly improved after treatment, cp and as a result, I will discharge patient. ED course: Area of nasal passage with scant bleeding cauterized using silver nitrate. Patient tolerated well. Epistaxis resolved. Will discharge to home for continued monitoring. Administered Medications: No medications were administered Disposition Summary: 03/12/22 23:23 Discharge Ordered Location: Home cp Problem: new cp Symptoms: have improved cp Condition: Stable cp Diagnosis - Epistaxis cp Followup: cp - With: Emergency Department - When: As needed - Reason: Worsening of condition Discharge Instructions: - Discharge Summary Sheet cp - Nosebleed, Adult cp Forms: - Medication Reconciliation Form cp - Thank You Letter cp - Antibiotic Education cp - Prescription Opioid Use cp Signatures: Davonte Rodrigues PA PA cp Madelyn Gifford, RN RN ld1
[2022-03-13 15:45] VITALS: O2SAT 96
[2022-03-13 15:47] VITALS: BP 132/80; TEMP 98
[2022-03-15] MEDS ORDERED: HEPA 1000U/500MLS 2,000 UNIT/1,000 ML BAG IV ONE (15:02)
[2022-03-15] MEDS ORDERED: LIDOCAINE 1% 20 ML MDV ONE (15:02)
== END 2022-03-12 23:33 | disposition home or self-care (01) ==
LOC: ER 21:33
PROC: 093K7ZZ Control Bleeding in Nasal Mucosa and Soft Tissue, Via Natural or Artificial Opening (ICD-10-PCS; principal; 2022-03-12)
DX: R04.0 Epistaxis (principal)
CPT/HCPCS: 99283

== ENCOUNTER 2022-04-02 07:54 | Day surgery (SDC) | payer BC ==
--- NOTE | 2022-04-01 17:57 | EKG ---
Test Date: 2022-03-26 Test Time: 12:48:35 Cylinder Loader: TRINH MEASUREMENT RESULTS: Intervals: Rate: 91 AL: 150 QRSD: 84 QT: 348 QTc: 428 [place]: P: 54 AL: 150 QRS: 54 T: 46 INTERPRETIVE STATEMENTS: Normal sinus rhythm Normal ECG Compared to ECG 11/23/2021 08:46:30 No significant changes Electronically Signed On 04-01-22 17:49:31 [employer] by Gennaro Mac
[2022-04-02] MEDS ORDERED: Ringers Lactate 1,000 ML IV ONE (08:11)
[2022-04-02] MEDS ORDERED: MIDAZOLAM HCL 2 MG/2 ML INJ ONE (09:05)
[2022-04-02] MEDS ORDERED: propofoL 200 MG/20 ML VIAL IV ONE (09:05)
[2022-04-02] MEDS ORDERED: LIDOCAINE 2% MPF 5 ML VIAL ONE (09:07)
[2022-04-02] MEDS ORDERED: ONDANSETRON 4 MG/2 ML VIAL ONE (09:07)
[2022-04-02] MEDS ORDERED: FENTANYL CITR 100 MCG/2 ML ONE (09:09)
[2022-04-02] MEDS ORDERED: ROCURONIUM 50 MG/5 ML VIAL IV ONE (09:10)
[2022-04-02] MEDS ORDERED: dexAMETHasone 10 MG/ML VIAL ONE (09:38)
[2022-04-02] MEDS ORDERED: GLYCOPYRROLATE 0.2 MG/ML SYR ONE (09:38)
[2022-04-02] MEDS ORDERED: NEOSTIGMINE 1 MG/ML -10 ML VIAL ONE (09:38)
[2022-04-02] MEDS ORDERED: LIDOCAINE 1% MPF 5 ML VIAL ONE ×2 (09:48→10:38)
--- NOTE | 2022-04-02 10:21 | P.OP ---
Mallet Cutter: NONE,NONE Preoperative diagnosis: Nasal mass, epistaxis Postoperative diagnosis: Same Primary procedure: Excision intranasal lesion Anesthesia: General Estimated blood loss: 10 mL Specimen: Right anterior septum Findings: Granuloma appearing mass, approximately 2 mm Operative Technique: After adequate plane of anesthesia, the head of bed was turned 90 degrees. The nasal cavity was examined using a nasal speculum and headlight. The left nasal cavity appeared normal. The right nasal cavity had a stable appearing 2 mm mass on the anterior septum. The nasal mucosa surrounding this area on the septum was injected with 1% lidocaine with 1:100,000 units of epinephrine, a total of 2 mL was used. A Afrin-soaked pledget was placed over the lesion. After time for effect, a 15 blade scalpel was used to incise a square margin around the visualized lesion. A Zavala elevator was used to elevate the mucosa off of the underlying septal cartilage. The specimen was removed using a Blakesley forcep and sent to pathology for permanent section. The resulting defect was approximately 4 x 4 mm. The edges were cauterized using bipolar and monopolar cautery to control bleeding at the edges. An Afrin-soaked pledget was applied to the site to aid in vasoconstriction and direct pressure was applied to the nose externally. After several minutes the packing was removed and the site was examined and appeared to be hemostatic with minimal oozing. A Posisep dissolvable nasal dressing was cut to size and placed in the anterior right nasal cavity to cover the surgical site. It was then thoroughly soaked with sterile saline. The nasopharynx was suctioned through the left side, the oropharynx was examined and there was no evidence of additional blood or active bleeding after suctioning. The procedure was concluded and the patient was returned to care of anesthesia for awakening extubation in the operating room which proceeded without difficulty. Complications: None Implants: Posisep resorbable dressing to right nasal cavity Transferred to: Recovery Room Condition: Good
[2022-04-02] MEDS ORDERED: OXYMETAZOLINE HCL 0.05% 15ML NAS ONE (10:38)
[2022-04-02] MEDS ORDERED: EPINEPHRINE/PF 1 MG/ML AMP ONE (10:38)
[2022-04-02 12:15] VITALS: BP 118/62; TEMP 96.8; O2SAT 96
== END 2022-04-02 12:03 | disposition home or self-care (01) ==
LOC: OR 07:54
PROVIDERS: ADMIT Otolaryngology; ATTEND Otolaryngology
PROC: 09BM8ZZ Excision of Nasal Septum, Via Natural or Artificial Opening Endoscopic (ICD-10-PCS; principal; 2022-04-02 09:15)
DX: R04.0 Epistaxis (principal); J34.89 Other specified disorders of nose and nasal sinuses
CPT/HCPCS: 93005 ×2; 88305; 30117; J2704; J2710; J0171; J2001 ×3; J2250; J3010; J1100; J7120; J2405

== ENCOUNTER 2022-05-25 11:07 | Emergency (ER) | payer BC ==
--- OUTSIDE RECORDS SUMMARY | 2022-05-25 11:10 | XMS REPORT | Continuity of Care Document ---
:1960 Author Organization [facility] t Address [address] [place] [address] Care Team Providers Name Role Phone JOHNNIE [...] Date Clinician NO KNOWN Allergy Active [facility] Family History Family Member Diagnosis Comments Start Date Stop Date Source Natural mother Hypertension [facility] Social History Social Habit Start Date Stop Date Quantity Comments Source History [facility] Alcohol Frequency [facility] History [facility] Alcohol Std Drinks [facility] History SD[facility] Alcohol Binge Medical Desi ter Tobacco use and 2018-02-15 2018-02-[address] [facility] exposure 00:00[facility]00 [facility]00 [facility] Alcohol intake 2018-02-15 2018-02-15 [facility] (finding) History [facility] 2018-02-15 2018-02-15 2-[address] [facility] Alcohol Comment 00:00:00 00:00:00 a day Medical C enter Sex Assigned At [address] [facility] 00[facility] Smoking Status Start Date Stop Date Source Never smoker [facility] Medications Ordered Filled Start Stop Current Ordering Indication Dosage Frequency Signature Comments Components Source Medication Medication Date Date Medication? Clinician (SIG) Name Name lisinopril 2017-04 Yes 20mg QD Take [address] (PRINIVIL,Z 1-15 by mouth Luke s ESTRIL) 20 18:18: daily. Medic al MG tablet 35 [place] atorvastati 2017-04 Yes 20mg QD Take [address] [facility] (LIPITOR) 1-15 by mouth Luke s 20 MG 18:18: daily. Medical tablet 35 [place] lisinopril 2017-04 Yes 20mg QD Take [address] (PRINIVIL,Z 1-15 by mouth Luke s ESTRIL) 20 18:18: daily. Medic al MG tablet 35 [place] atorvastati 2017-04 Yes 20mg QD Take [address] [facility] (LIPITOR) 1-15 by mouth Luke s 20 MG 18:18: daily. [facility] tablet [address] [place] [address] Procedures This patient has no known procedures. Results Test Description Test Time Test Comments Results Result [facility] e Comments [facility], 2018-02-16 Reason for FINAL REPORT PATIENT MULTI, SPECT 16:41:00 exam:->Chest ID: [id number] Pain PROCEDURE: Rest/Stress MYOCARDIAL PERFUSION SPECT with treadmill\XA9\ CPT CODE: 84153 INDICATION: Chest pain, chronic, high probability of [...] Normal extracardiac tracer distribution. 6. No previous [facility] study for comparison. Signed: Ina Curtis MDReport Verified Date/Time: 02/16/2018 16:41:31 Reading Location: [address] Reading Room GLOBIN A1C 2018-02-16 11:58:00 Test Item Value Reference Range Interpretation Comme nts HEMOGLOBIN A1C (BEAKER) (test code = 368) 5.3 % 4.3-6.1 BASIC METABOLIC [id number] 06:49:00 Test Item Value Reference Range Interpretation [...] S NOT APPLICABLE FOR DIALYSIS PATIEN TS. LIPID [id number] 06:49:00 Test Item Value Reference Range Interpretation [...] 100-129 Borderline 130-159 High 160-189 Very High >=190TROPONIN I 2018-02-16 06:28:00 Test Item Value Reference Range Interpretation Comments TROPONIN I (BEAKER) (test code = 397) < ng/mL 0.00-0.03 CBC W/PLT COUNT & AUTO [id number] 05:34:00 Test Item Value Reference Range Interpretation [...] PERCENT (BEAKER) (test code = 2801) TROPONIN [id number] 01:36:00 Test Item Value Reference Range Interpretation Comments TROPONIN I (BEAKER) (test code = 397) < ng/mL 0.00-0.03 [id number] 01:21:00 Test Item Value Reference Range Interpretation Comments POTASSIUM (BEAKER) (test code = 3.5 meq/L 3.5-5.1 379)
[2022-05-25 11:42] LABS: Absolute Lymphocytes (CBC) 1.8 K/uL (0.7-4.9); Hematocrit 40.8 % (36.0-45.0); Lymphocytes % 30.2 % (15.3-44.8); MCV 93.2 fL (80-100); MPV 8.3 fL (7.6-11.3); RBC Red Blood Cell Count 4.38 M/uL (3.86-4.86)
[2022-05-25] MEDS ORDERED: LABETALOL 20 MG/4ML SYRINGE IV ONE (11:47)
[2022-05-25] MEDS ORDERED: ASPIRIN 81 MG CHEWABLE TABLET ONE (11:49)
--- NOTE | 2022-05-25 11:50 | RAD REPORT ---
EXAM DESCRIPTION: CT - Ct Stroke Brain Wo Cont - 05/25/2022 11:33 am CLINICAL HISTORY: STROKE ALERT Headache, drowsiness, CVA symptomology COMPARISON: Head Brain Wo Cont dated 11/07/2021; HEAD BRAIN W O CONTRAST dated 08/17/2011 TECHNIQUE: All CT scans are performed using dose optimization technique as appropriate and may inclu de automated exposure control or mA/KV adjustment according to patient size. FINDINGS: No intracranial hemorrhage, hydrocephalus or extra-axial fluid collection.Mild brain atrop hy.No areas of brain edema or evidence of midline shift. The paranasal sinuses and mastoids are clear. The calvarium is intact. IMPRESSION: No acute intracranial abnormality. The findings were discussed with Dr Rosario in the ER on 05/25/2022 at 11:30 a.m. by telephone.
--- NOTE | 2022-05-25 11:53 | RAD REPORT ---
EXAM DESCRIPTION: CT - Head angio - 05/25/2022 11:33 am CLINICAL HISTORY: Headache Headache, drowsiness, CVA symptomology. COMPARISON: Ct Stroke Brain Wo Cont dated 05/25/2022; Head Brain Wo Cont dated 11/07/2021 TECHNIQUE: CT angiography of the head was performed with MIPs. All CT scans are performed using dose optimization technique as appropriate and may include automated exposure control or mA/KV adjustment according to patient size. FINDINGS: No evidence of large vessel occlusion. No evidence of aneurysm is detected. No flow-limiti ng stenosis or vascular malformation identified. Antegrade flow is seen in the vertebral arteries. The vertebral arteries are codominant. The visualized dural venous sinuses are patent. IMPRESSION: No significant flow abnormality is detected.
[2022-05-25 11:59] LABS: ALT/SGPT 63 U/L (13-56); Albumin 4.1 g/dL (3.4-5.0); Alkaline Phosphatase 70 U/L (45-117); BUN Blood Urea Nitrogen 8 mg/dL (7-18); Bicarbonate 28 mmol/L (21-32); Bilirubin Direct 0.1 mg/dL (0-0.2); Bilirubin Total 0.7 mg/dL (0.2-1.0); Glomerular Filtration Rate 97 ml/min (=/>90); Glucose Level 111 mg/dL (74-106); Lipase 188 U/L (73-393); NT PRO-BNP 32 pg/mL (<125); Protein, Total 7.4 g/dL (6.4-8.2); Sodium Level 135 mmol/L (136-145); Troponin High Sensitivity 4.2 pg/mL (<58.9)
[2022-05-25 12:00] LABS: AST/SGOT 46 U/L (15-37); C-Reactive Protein < 2.90 mg/L (<3.00); Magnesium 2.1 mg/dL (1.6-2.4); Potassium 4.2 mmol/L (3.5-5.1)
--- NOTE | 2022-05-25 12:01 | RAD REPORT ---
EXAM DESCRIPTION: CT - Neck Angio - 05/25/2022 11:33 am CLINICAL HISTORY: NUMBNESS Headache, drowsiness, CVA symptomology COMPARISON: Head C Spine Mpr Wo Con dated 06/15/2019 TECHNIQUE: CT angiography of the neck vessels was performed with MIPs. All CT scans are performed using dose optimization technique as appropriate and may include automated exposure control or mA/KV adjustment according to patient size. FINDINGS: A left aortic arch is identified with normal three vessel configuration of the great vesse ls. No significant flow abnormality is seen of the common carotid bilaterally. Mild mixed plaque is seen left proximal ICA resulting stenosis of less than 50% based on NASCET crite leona. No significant right-sided stenosis. Normal flow is seen within both vertebral arteries. IMPRESSION: Mild mixed plaque is seen in the proximal left internal carotid artery. No significant c arotid stenosis seen.
[2022-05-25 12:14] LABS: Protime INR 0.94
[2022-05-25 12:17] LABS: SARS-CoV-2 Antigen Rapid Res Negative (Negative)
--- NOTE | 2022-05-25 12:27 | RAD REPORT ---
EXAM DESCRIPTION: MRI - Brain Wo Cont - 05/25/2022 12:14 pm CLINICAL HISTORY: DIZZINESS Headache, drowsiness, CVA symptomology COMPARISON: Head angio dated 05/25/2022 TECHNIQUE: Multi-sequence, multiplanar MR imaging of the brain was performed without contrast. FINDINGS: No intracranial hemorrhage, hydrocephalus or extra-axial fluid collections.Mild periventri cular chronic microvascular ischemic changes. Mildly prominent area elevated FLAIR signal adjacent to left frontal horn noted measuring 15 mm, likely chronic. No edema or shift of midline structures. No findings to suspect brain mass. DWI is negative for acute CVA. Midline structures are normally formed. Mastoid air cells and paranasal sinuses are clear. IMPRESSION: Negative for acute CVA or other acute intracranial finding.
--- NOTE | 2022-05-25 12:31 | RAD REPORT ---
EXAM DESCRIPTION: RAD - Chest Single View - 05/25/2022 11:50 am CLINICAL HISTORY: COUGH Chest pain. COMPARISON: Chest Single View dated 11/23/2021; Chest Single View dated 06/15/2019; Chest Single View dated 12/13/2018; CHEST SINGLE VIEW dated 08/17/2011 FINDINGS: Portable technique limits examination quality. The lungs are emphysematous but grossly clear. The heart is normal in size. No displaced fractures. IMPRESSION: Mild COPD.
[2022-05-25] MEDS ORDERED: LABETALOL HCL 100 MG TAB ONE (12:39)
[2022-05-25] MEDS ORDERED: NA CHLORIDE 0.9% 1,000 ML ONE (12:39)
[2022-05-25] MEDS ORDERED: FOLIC ACID 5 MG/ML VIAL ONE (12:40)
[2022-05-25] MEDS ORDERED: NA CHLORIDE 0.9% 500 ML ONE (12:40)
--- NOTE | 2022-05-25 13:37 | ER ---
Nurse's Notes [facility] Name: Pallavi Jimenez Age: 62 yrs Sex: Female : 1960 Arrival Date: 05/25/2022 Time: 11:09 Bed 4 Private MD: Nancy Smith H Diagnosis: Essential (primary) hypertension;Transient cerebral ischemic attack, unspecified;Hyperlipidemia, unspecified Presentation: 05/25 11:15 Chief complaint: Patient states: "I was feeling fine, I even went for a walk this aa5 morning". Reports numbness to left side of face and left hand that began 1 hr ago. 11:15 Coronavirus screen: At this time, the client does not indicate any symptoms associated aa5 with coronavirus-19. Ebola Screen: Patient denies travel to an Ebola-affected area in the 21 days before illness onset. Initial Sepsis Screen: Does the patient meet any 2 criteria? No. Patient's initial sepsis screen is negative. Does the patient have a suspected source of infection? No. Patient's initial sepsis screen is negative. Risk Assessment: Do you want to hurt yourself or someone else? Patient reports no desire to harm self or others. Onset of symptoms was May 25, 2022. 11:15 Acuity: JENNY 2 aa5 11:15 Method Of Arrival: Ambulatory aa5 Triage Assessment: 14:11 General: Appears distressed, uncomfortable, Behavior is cooperative, appropriate for bp age, anxious. Pain: Denies pain. EENT: No deficits noted. Neuro: No deficits noted. Cardiovascular: No deficits noted. Respiratory: No deficits noted. GI: No signs and/or symptoms were reported involving the gastrointestinal system. : No signs and/or symptoms were reported regarding the genitourinary system. Derm: No deficits noted. Musculoskeletal: No deficits noted. Historical: - Allergies: 11:21 No Known Allergies; aa5 - PMHx: 11:21 Hyperlipidemia; Hypertension; aa5 - Immunization history:: Adult Immunizations up to date. - Family history:: not pertinent. - Social history:: Smoking status: Patient denies any tobacco usage or history of. Screenin:45 [facility] ED Fall Risk Assessment (Adult) History of falling in the last 3 months, bp including since admission No falls in past 3 months (0 pts). Abuse screen: Denies threats or abuse. Denies injuries from another. Nutritional screening: No deficits noted. Tuberculosis screening: No symptoms or risk factors identified. 11:45 VAN Screening: Arm Drift: Patient shows no arm weakness. Patient is VAN negative. [place] bp Swallow Protocol Exclusion Criteria: Unable to remain alert for testing: No NPO for medical/surgical reason by provider order No Tracheostomy tube present No Exclusion Criteria Result: Proceed Brief Cognitive Screen What is your name? Normal, Where are you right now? Normal, What year is it? Normal. Oral Mechanism Examination Facial Symmetry: Normal, Motion: Normal, Lip Closure: Normal, Oral Mechanism Result: Normal. 3 oz Water Swallow Challenge: Pt able to drink all water without stopping, coughing, choking or throat clearing: Yes Result: PASS MD Notified: Davonte Rosario MD. Assessment: 11:18 Reassessment: Pt in CT, accompanied by me. . aa5 11:33 Reassessment: Pt back from CT scan. aa5 11:38 Reassessment: MD at bedside . aa5 11:45 Reassessment: PT TO MRI. Neuro: Level of Consciousness is awake, alert, obeys commands, bp Oriented to Appropriate for age Tamale Maker are equal bilaterally Moves all extremities. Full function Speech is normal, Facial symmetry appears normal. 13:00 Reassessment: DISPO PENDING. bp 14:08 Reassessment: Patient appears in no apparent distress at this time. Patient and/or bp family updated on plan of care and expected duration. Pain level reassessed. Patient states symptoms have improved. Vital Signs: 11:15 BP 169 / 102; Pulse 87; Resp 16 S; Temp 98.0(TE); Pulse Ox 100% on R/A; Weight 70.31 kg aa5 (R); Height 5 ft. 4 in. (162.56 cm) (R); 11:45 BP 165 / 96; Pulse 92; Resp 20; Pulse Ox 97% on R/A; bp 12:43 BP 117 / 75; Pulse 80; Resp 18; Pulse Ox 96% on R/A; ld1 13:39 BP 128 / 87; Pulse 82; Resp 16; Pulse Ox 93% ; bp 11:15 Body Mass Index 26.61 (70.31 kg, 162.56 cm) aa NIH Stroke Scale Scores: 11:45 NIHSS Score: 0 bp 11:46 NIHSS Score: 0 paty ED Course: 11:09 Patient arrived in ED. rg4 11:09 Nancy Smith DO is Private Physician. rg4 11:15 Davonte Rosario MD is Attending Physician. paty 11:15 Arm band placed on. aa5 11:23 Triage completed. aa5 11:30 Inserted saline lock: 22 gauge in right antecubital area, using aseptic technique. aa5 11:35 Initial lab(s) drawn, by me, sent to lab. aa5 11:45 Patient has correct armband on for positive identification. Bed in low position. Call bp light in reach. Side rails up X2. Adult w/ patient. 11:47 Tyler Jewell, RN is Primary Nurse. bp 11:52 Ptt, Activated Sent. bp 11:52 Protime (+inr) Sent. bp 11:52 High Sensitivity Troponin Sent. bp 11:52 CBC with Diff Sent. bp 11:52 Basic Metabolic Panel Sent. bp 11:52 CRP Sent. bp 11:52 Lipase Sent. bp 11:53 Troponin HS Sent. bp 11:53 PT-INR Sent. bp 11:53 NT PRO-BNP Sent. bp 11:53 Magnesium Sent. bp 11:53 LFT's Sent. bp 11:53 CBC with Diff Sent. bp 11:53 Basic Metabolic Panel Sent. bp 13:36 Nancy Smith DO is Referral Physician. paty 13:36 Danny Bautista MD is Referral Physician. paty 14:09 No provider procedures requiring assistance completed. IV discontinued, intact, bp bleeding controlled, No redness/swelling at site. Pressure dressing applied. Administered Medications: 11:47 Drug: Labetalol 10 mg Route: IV; Rate: per protocol; Site: right antecubital; bp 11:47 Drug: Aspirin Chewable Tablet 324 mg Route: PO; bp 13:38 Follow up: Response: No adverse reaction bp 12:19 Not Given (Duplicate Order): Labetalol 20 mg IV at per protocol once over 2 mins paty 12:19 Not Given (Duplicate Order): Labetalol 20 mg IV at per protocol once over 2 mins paty 12:42 Drug: NS 0.9% 500 ml Route: IV; Rate: bolus; Site: right antecubital; ld1 12:42 Drug: NS 0.9% 1000 ml Route: IV; Rate: 125 ml/hr; Site: right antecubital; ld1 12:42 Drug: foLIC Acid 1 mg Route: IVPB; Site: right antecubital; ld1 12:42 Not Given (blood pressure in normal rangeg): Labetalol 100 mg PO once ld1 13:38 Drug: ToPROL XL (metoprolol SUCCINATE) 25 mg Route: PO; bp 14:16 Follow up: Response: No adverse reaction bp Medication: 14:08 VIS not applicable for this client. bp Outcome: 13:36 Discharge ordered by . paty 14:10 Discharged to home ambulatory, with family. bp 14:10 Condition: good 14:10 Discharge instructions given to patient, Instructed on discharge instructions, follow up and referral plans. medication usage, Demonstrated understanding of instructions, follow-up care, medications, Prescriptions given X 1. 14:16 Patient left the ED. bp NIH Stroke Scale - NIH Stroke Score Date: 05/25/2022 Time: 11:45 Total Score = 0 1a. Level of Consciousness (LOC) - 0(Alert) 1b. Level of Consciousness (LOC) (Month \\T\\ Age) - 0(Both) 1c. LOC Commands (Open \\T\\ Closes Eyes/Staff Writer) - 0(Both) 2. Best Gaze (Lateral Gaze Paresis) - 0(Normal) 3. Visual Field Loss - 0(No visual loss) 4. Facial Palsy - 0(Normal) 5a. Left Arm: Motor (10-second hold) - 0(No drift) 5b. Right Arm: Motor (10-second hold) - 0(No drift) 6a. Left Leg: Motor (5-second hold - always test supine) - 0(No drift) 6b. Right Leg: Motor (5-second hold - always test supine) - 0(No drift) 7. Limb Ataxia (finger/nose \\T\\ heel/del valle - test with eyes open) - 0(Absent) 8. Sensory Loss (pinprick arms/legs/face) - 0(Normal) 9. Best Language: Aphasia (description/naming/reading) - 0(No aphasia) 10. Dysarthria (speech clarity - read or repeat words) - 0(Normal) 11. Extinction and Inattention (visual/tactile/auditory/spatial/personal) - 0(No abnormality) Initials: bp NIH Stroke Scale - NIH Stroke Score Date: 05/25/2022 Time: 11:46 Total Score = 0 1a. Level of Consciousness (LOC) - 0(Alert) 1b. Level of Consciousness (LOC) (Month \\T\\ Age) - 0(Both) 1c. LOC Commands (Open \\T\\ Closes Eyes/Staff Writer) - 0(Both) 2. Best Gaze (Lateral Gaze Paresis) - 0(Normal) 3. Visual Field Loss - 0(No visual loss) 4. Facial Palsy - 0(Normal) 5a. Left Arm: Motor (10-second hold) - 0(No drift) 5b. Right Arm: Motor (10-second hold) - 0(No drift) 6a. Left Leg: Motor (5-second hold - always test supine) - 0(No drift) 6b. Right Leg: Motor (5-second hold - always test supine) - 0(No drift) 7. Limb Ataxia (finger/nose \\T\\ heel/del valle - test with eyes open) - 0(Absent) 8. Sensory Loss (pinprick arms/legs/face) - 0(Normal) 9. Best Language: Aphasia (description/naming/reading) - 0(No aphasia) 10. Dysarthria (speech clarity - read or repeat words) - 0(Normal) 11. Extinction and Inattention (visual/tactile/auditory/spatial/personal) - 0(No abnormality) Initials: paty Signatures: Davonte Rosario MD MD cha Calderon, Audri, RN RN [email or web address] Sarah Yanes4 Tyler Jewell RN RN bp Madelyn Gifford RN RN ld1
--- NOTE | 2022-05-25 13:37 | EDPHYS ---
Physician Documentation [facility] Name: Pallavi Jimenez Age: 62 yrs Sex: Female : 1960 Arrival Date: 05/25/2022 Time: 11:09 Bed 4 Private MD: Nancy Smith H ED Physician Davonte Rosario HPI: 05/25 11:46 This 62 yrs old Female presents to ER via Ambulatory with complaints of paty Numbness Of Face, Numbness Of Hand. 11:46 The patient's problem is reported as paresthesias, left back of hand, and around mouth. paty Onset: The symptoms/episode began/occurred just prior to arrival, 1 hour(s) ago. Duration: lasting 5 minute(s). 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 The symptoms are alleviated by nothing. The symptoms are aggravated by nothing. Associated signs and symptoms: The patient has no apparent associated signs or symptoms. Severity of symptoms: At their worst the symptoms were mild in the emergency department the symptoms are unchanged. Patient's baseline: Neuro: alert and fully oriented. The patient has not experienced similar symptoms in the past. Historical: - Allergies: 11:21 No Known Allergies; aa5 - PMHx: 11:21 Hyperlipidemia; Hypertension; aa5 - Immunization history:: Adult Immunizations up to date. - Family history:: not pertinent. - Social history:: Smoking status: Patient denies any tobacco usage or history of. ROS: 11:46 Constitutional: Negative for fever, chills, and weight loss, Eyes: Negative for injury, paty pain, redness, and discharge, ENT: Negative for injury, pain, and discharge, Neck: Negative for injury, pain, and swelling, Cardiovascular: Negative for chest pain, palpitations, and edema, Respiratory: Negative for shortness of breath, cough, wheezing, and pleuritic chest pain, Abdomen/GI: Negative for abdominal pain, nausea, vomiting, diarrhea, and constipation, Back: Negative for injury and pain, : Negative for injury, bleeding, discharge, and swelling, MS/Extremity: Negative for injury and deformity, Skin: Negative for injury, rash, and discoloration, Psych: Negative for depression, anxiety, suicide ideation, homicidal ideation, and hallucinations, Allergy/Immunology: Negative for hives, rash, and allergies, Endocrine: Negative for neck swelling, polydipsia, polyuria, polyphagia, and marked weight changes, Hematologic/Lymphatic: Negative for swollen nodes, abnormal bleeding, and unusual bruising. 11:46 Neuro: Positive for tingling, numbness back left hand , around mouth. Exam: 11:46 Radiologist reports: negative , harmony newman 11:46 Constitutional: This is a well developed, well nourished patient who is awake, alert, and in no acute distress. Head/Face: Normocephalic, atraumatic. Eyes: Pupils equal round and reactive to light, extra-ocular motions intact. Lids and lashes normal. Conjunctiva and sclera are non-icteric and not injected. Cornea within normal limits. Periorbital areas with no swelling, redness, or edema. ENT: Nares patent. No nasal discharge, no septal abnormalities noted. Tympanic membranes are normal and external auditory canals are clear. Oropharynx with no redness, swelling, or masses, exudates, or evidence of obstruction, uvula midline. Mucous membranes moist. Neck: Trachea midline, no thyromegaly or masses palpated, and no cervical lymphadenopathy. Supple, full range of motion without nuchal rigidity, or vertebral point tenderness. No Meningismus. Chest/axilla: Normal chest wall appearance and motion. Nontender with no deformity. No lesions are appreciated. Cardiovascular: Regular rate and rhythm with a normal S1 and S2. No gallops, murmurs, or rubs. Normal PMI, no JVD. No pulse deficits. Respiratory: Lungs have equal breath sounds bilaterally, clear to auscultation and percussion. No rales, rhonchi or wheezes noted. No increased work of breathing, no retractions or nasal flaring. Abdomen/GI: Soft, non-tender, with normal bowel sounds. No distension or tympany. No guarding or rebound. No evidence of tenderness throughout. Back: No spinal tenderness. No costovertebral tenderness. Full range of motion. Female : Normal external genitalia. Skin: Warm, dry with normal turgor. Normal color with no rashes, no lesions, and no evidence of cellulitis. MS/ Extremity: Pulses equal, no cyanosis. Neurovascular intact. Full, normal range of motion. Neuro: Awake and alert, GCS 15, oriented to person, place, time, and situation. Cranial nerves II-XII grossly intact. Motor strength 5/5 in all extremities. Sensory grossly intact. Cerebellar exam normal. Normal gait. Psych: Awake, alert, with orientation to person, place and time. Behavior, mood, and affect are within normal limits. 12:54 ECG was reviewed by the Attending Physician. [facility] Vital Signs: 11:15 BP 169 / 102; Pulse 87; Resp 16 S; Temp 98.0(TE); Pulse Ox 100% on R/A; Weight 70.31 kg aa5 (R); Height 5 ft. 4 in. (162.56 cm) (R); 11:45 BP 165 / 96; Pulse 92; Resp 20; Pulse Ox 97% on R/A; bp 12:43 BP 117 / 75; Pulse 80; Resp 18; Pulse Ox 96% on R/A; ld1 13:39 BP 128 / 87; Pulse 82; Resp 16; Pulse Ox 93% ; bp 11:15 Body Mass Index 26.61 (70.31 kg, 162.56 cm) aa5 NIH Stroke Scale Scores: 11:45 NIHSS Score: 0 bp 11:46 NIHSS Score: 0 paty MDM: 11:15 Patient medically screened. paty 11:50 Differential diagnosis: CVA, TIA, Dementia, metabolic disorder. Data reviewed: [facility] signs, nurses notes, lab test result(s), EKG, radiologic studies, CT scan, MRI. Consideration of Admission/Observation. I considered the following discharge prescriptions or medication management in the emergency department Medications were administered in the Emergency Department. See MAR. Independent interpretation of the following test(s) in the Emergency Department quality assurance monitor chassis: rate is 87 beats/min, Rhythm is regular. Discussion of test interpretation with radiology: I had a discussion with radiology regarding a test interpretation. dr harmony peralta neg. Historians other than the Patient: Spouse/Significant Other: . Care significantly affected by the following chronic conditions: Hypertension, increased lipids. 05/25 11:19 Order name: Basic Metabolic Panel paty 05/25 11:19 Order name: CBC with Diff 05/25 11:19 Order name: LFT's paty 05/25 11:19 Order name: Magnesium 05/25 11:19 Order name: NT PRO-BNP 05/25 11:19 Order name: PT-INR 05/25 11:19 Order name: Troponin HS 05/25 11:19 Order name: Lipase [facility] 05/25 11:19 Order name: CRP [facility] 05/25 11:19 Order name: SARS RAPID [facility] 05/25 11:19 Order name: Basic Metabolic Panel [facility] 05/25 11:19 Order name: CBC with Diff [facility] 05/25 11:19 Order name: High Sensitivity Troponin [facility] 05/25 11:19 Order name: Protime (+inr) [facility] 05/25 11:19 Order name: Ptt, Activated [facility] 05/25 11:46 Order name: Lipid Profile [facility] 05/25 11:46 Order name: CREATININE WHOLE BLOOD; Complete Time: 12:20 EDUT 05/25 11:49 Order name: CBC with Automated Diff; Complete Time: 12:20 EDUT 05/25 11:51 Order name: Glucose, Ancillary Testing; Complete Time: 12:20 EDUT 05/25 12:00 Order name: Basic Metabolic Panel; Complete Time: 12:20 EDUT 05/25 12:00 Order name: Liver (Hepatic) Function; Complete Time: 12:20 EDUT 05/25 12:00 Order name: Troponin High Sensitivity; Complete Time: 12:20 EDUT 05/25 12:00 Order name: NT PRO-BNP; Complete Time: 12:20 EDUT 05/25 12:00 Order name: C-Reactive Protein; Complete Time: 12:20 EDUT 05/25 12:00 Order name: Magnesium; Complete Time: 12:20 EDUT 05/25 12:00 Order name: Lipase; Complete Time: 12:20 EDUT 05/25 12:14 Order name: Protime (+INR); Complete Time: 12:20 EDUT 05/25 12:14 Order name: PTT, Activated Partial Thromb; Complete Time: 12:20 EDUT 05/25 12:15 Order name: Lipid Profile; Complete Time: 12:20 EDUT 05/25 12:18 Order name: SARS-COV-2 Antigen Rapid; Complete Time: 12:20 EDUT 05/25 11:19 Order name: XRAY Chest (1 view) [facility] 05/25 11:19 Order name: EKG; Complete Time: 11:[address] [facility] 05/25 11:19 Order name: Cardiac monitoring; Complete Time: 11:[address] [facility] 05/25 11:19 Order name: CT Stroke Brain w/o Contrast [facility] 05/25 11:19 Order name: CT Neck Angio [facility] 05/25 11:19 Order name: CT Head Angio [facility] 05/25 11:19 Order name: CT Stroke Brain w/o Contrast [facility] 05/25 11:19 Order name: Stroke CXR 1 View [facility] 05/25 11:19 Order name: EKG; Complete Time: 11:20 [facility] 05/25 11:19 Order name: Accucheck; Complete Time: 11:48 [facility] 05/25 11:42 Order name: MRI Stroke Protocol [facility] 05/25 11:50 Order name: CT; Complete Time: 12:20 EDUT 05/25 11:54 Order name: CT; Complete Time: 12:20 [facility] 05/25 12:01 Order name: CT; Complete Time: 12:20 [facility] 05/25 12:27 Order name: MRI; Complete Time: 12:36 [facility] 05/25 12:32 Order name: RAD; Complete Time: 12:36 [facility] 05/25 13:48 Order name: Urine Dipstick-Ancillary [facility] 05/25 11:19 Order name: EKG - Nurse/Tech; Complete Time: 12:43 [facility] 05/25 11:19 Order name: IV Saline Lock; Complete Time: 11:48 [facility] 05/25 11:19 Order name: Labs collected and sent; Complete Time: 11:48 05/25 11:19 Order name: NPO; Complete Time: 11:48 05/25 11:19 Order name: O2 Per Protocol; Complete Time: 11:48 [facility] 05/25 11:19 Order name: O2 Sat Monitoring; Complete Time: 11:48 05/25 11:19 Order name: Stroke Swallow Screen; Complete Time: 11:47 05/25 13:24 Order name: Misc. Order: get ua please; Complete Time: 13:[address] [facility] EC:54 Rate is 81 beats/min. Rhythm is regular. QRS Hurt is Normal. QRS interval is normal. QT paty interval is normal. No Q waves. T waves are Normal. No ST changes noted. Clinical impression: NSR w/ Non-specific ST/T Changes and No evidence of ischemia. Interpreted by me. Reviewed by me. Administered Medications: 11:47 Drug: Labetalol 10 mg Route: IV; Rate: per protocol; Site: right antecubital; bp 11:47 Drug: Aspirin Chewable Tablet 324 mg Route: PO; bp 13:38 Follow up: Response: No adverse reaction bp 12:19 Not Given (Duplicate Order): Labetalol 20 mg IV at per protocol once over 2 mins paty 12:19 Not Given (Duplicate Order): Labetalol 20 mg IV at per protocol once over 2 mins paty 12:42 Drug: NS 0.9% 500 ml Route: IV; Rate: bolus; Site: right antecubital; ld1 12:42 Drug: NS 0.9% 1000 ml Route: IV; Rate: 125 ml/hr; Site: right antecubital; ld1 12:42 Drug: foLIC Acid 1 mg Route: IVPB; Site: right antecubital; ld1 12:42 Not Given (blood pressure in normal rangeg): Labetalol 100 mg PO once ld1 13:38 Drug: ToPROL XL (metoprolol SUCCINATE) 25 mg Route: PO; bp 14:16 Follow up: Response: No adverse reaction bp Disposition Summary: 05/25/22 13:36 Discharge Ordered Location: Home ptay Problem: new paty Symptoms: have improved paty Condition: Stable paty Diagnosis - Essential (primary) hypertension paty - Transient cerebral ischemic attack, unspecified paty - Hyperlipidemia, unspecified paty Followup: paty - With: - When: 2 - 3 days - Reason: Recheck today's complaints, Continuance of care, Re-evaluation by your physician Followup: paty - With: - When: 2 - 3 days - Reason: Recheck today's complaints, Re-evaluation by your physician Discharge Instructions: - Discharge Summary Sheet paty - Fat and Cholesterol Restricted Eating Plan paty - Hypertension, Adult paty - Stroke Prevention paty - Transient Ischemic Attack paty - Hypertension, Adult, [id number] paty - How to Take Your Blood Pressure, [id number] paty - Transient Ischemic Attack, [id number] paty - Aspirin and Your Heart paty - Fat and Cholesterol Restricted Eating Plan, [id number] paty Forms: - Medication Reconciliation Form paty - Thank You Letter paty - Antibiotic Education paty - Prescription Opioid Use paty Prescriptions: - Toprol XL 25 mg Oral Tablet - take 1 tablet by ORAL route once daily; 20 tablet; Refills: 0, Product paty Selection Permitted NIH Stroke Scale - NIH Stroke Score Date: 05/25/2022 Time: 11:45 Total Score = 0 1a. Level of Consciousness (LOC) - 0(Alert) 1b. Level of Consciousness (LOC) (Month \T\ Age) - 0(Both) 1c. LOC Commands (Open \T\ Closes Eyes/Bingo Clerk) - 0(Both) 2. Best Gaze (Lateral Gaze Paresis) - 0(Normal) 3. Visual Field Loss - 0(No visual loss) 4. Facial Palsy - 0(Normal) 5a. Left Arm: Motor (10-second hold) - 0(No drift) 5b. Right Arm: Motor (10-second hold) - 0(No drift) 6a. Left Leg: Motor (5-second hold - always test supine) - 0(No drift) 6b. Right Leg: Motor (5-second hold - always test supine) - 0(No drift) 7. Limb Ataxia (finger/nose \T\ heel/del valle - test with eyes open) - 0(Absent) 8. Sensory Loss (pinprick arms/legs/face) - 0(Normal) 9. Best Language: Aphasia (description/naming/reading) - 0(No aphasia) 10. Dysarthria (speech clarity - read or repeat words) - 0(Normal) 11. Extinction and Inattention (visual/tactile/auditory/spatial/personal) - 0(No abnormality) Initials: bp NIH Stroke Scale - NIH Stroke Score Date: 05/25/2022 Time: 11:46 Total Score = 0 1a. Level of Consciousness (LOC) - 0(Alert) 1b. Level of Consciousness (LOC) (Month \T\ Age) - 0(Both) 1c. LOC Commands (Open \T\ Closes Eyes/Bingo Clerk) - 0(Both) 2. Best Gaze (Lateral Gaze Paresis) - 0(Normal) 3. Visual Field Loss - 0(No visual loss) 4. Facial Palsy - 0(Normal) 5a. Left Arm: Motor (10-second hold) - 0(No drift) 5b. Right Arm: Motor (10-second hold) - 0(No drift) 6a. Left Leg: Motor (5-second hold - always test supine) - 0(No drift) 6b. Right Leg: Motor (5-second hold - always test supine) - 0(No drift) 7. Limb Ataxia (finger/nose \T\ heel/del valle - test with eyes open) - 0(Absent) 8. Sensory Loss (pinprick arms/legs/face) - 0(Normal) 9. Best Language: Aphasia (description/naming/reading) - 0(No aphasia) 10. Dysarthria (speech clarity - read or repeat words) - 0(Normal) 11. Extinction and Inattention (visual/tactile/auditory/spatial/personal) - 0(No abnormality) Initials: [facility] Signatures: Dispatcher [employer] EDUT Davonte Rosario MD MD cha Calderon, Audri, RN RN aa5 Tyler Jewell RN RN bp Madelyn Gifford RN RN ld1 Corrections: (The following items were deleted from the chart) 11:20 11:19 EKG - Nurse/Tech ordered. [place] [id number] 11: 11:19 IV Saline Lock ordered. [place] [id number] : 11:19 Cardiac monitoring ordered. [place] [id number] 11:21 11:19 Labs collected and sent ordered. [place] [id number] 11: 11:19 Oxygen Per Protocol ordered. [place] [id number] 11: 11:19 O2 Sat Monitoring ordered. [place] [id number]
[2022-05-25] MEDS ORDERED: METOPROLOL XL 50 MG TAB PO ONE (13:38)
[2022-05-25 13:47] LABS: Urine Blood Negative (Negative); Urine Glucose Negative (Negative); Urine Protein Negative (Negative); Urine Specific Gravity <=1.005 (1.005-1.030)
[2022-05-25 15:07] VITALS: BP 128/87; O2SAT 93
--- NOTE | 2022-05-26 15:24 | EKG ---
Test Date: 2022-05-25 Test Time: 12:40:31 Perianesthesia Rn: KASANDRA MEASUREMENT RESULTS: Intervals: Rate: 81 NH: 164 QRSD: 86 QT: 380 QTc: 441 [place]: P: 63 NH: 164 QRS: 73 T: 35 INTERPRETIVE STATEMENTS: Normal sinus rhythm Normal ECG Compared to ECG 03/26/2022 12:48:35 No significant changes Electronically Signed On 05-26-22 15:20:24 LINE ASSIGNER by Gennaro Mac
== END 2022-05-25 14:16 | disposition home or self-care (01) ==
LOC: ER 11:07
DX: G45.9 Transient cerebral ischemic attack, unspecified (principal); I10 Essential (primary) hypertension; E78.5 Hyperlipidemia, unspecified; Z20.822 Contact with and (suspected) exposure to COVID-19
CPT/HCPCS: 85025; 80048; 36415; 83735; 85610; 80061; 82565; 82947; 80076; 85730; 81003; 84484; 83690; 83880; 86140; 70496; 70498; 70450; 71045; 70551; 87811; Q9967; J7040; J7030; 93005

== ENCOUNTER 2022-09-26 15:25 | Emergency (ER) | payer BC ==
--- OUTSIDE RECORDS SUMMARY | 2022-09-26 15:29 | XMS REPORT | Continuity of Care Document ---
:1960 Author Organization [facility] t Address [address] [facility] [address] [place] [address] Care Team Providers Name Role Phone JOHNNIE [...] NO KNOWN Allergy Active [facility] Family History Family Member Diagnosis Comments Start Date Stop Date Source Natural mother Hypertension [facility] Social History Social Habit Start Date Stop Date Quantity Comments Source History SDOH [facility] History SDOH [facility] Alcohol Std Dr[facility] History SDOH [facility] Alcohol Binge Medical Desi ter Tobacco use and 2018-02-15 2018-02-[address] [facility] exposure 00[facility]00[facility]00 00:[facility]:00 [facility] Alcohol intake 2018-02-15 2018-02-15 [facility] (finding) Alcohol Comment 2018-02-15 2018-02-15 2-[address] [facility] Sex Assigned At [address] [facility] Smoking Status Start Date Stop Date Source Never smoker [facility] Medications Ordered Filled Start Stop Current [...] 20 MG 18:18: daily. Medical tablet [address] lisinopril 2017-04 Yes 20mg QD Take [address] (PRINIVIL,Z 1-15 by mouth [facility] ESTRIL) 20 18:18: daily. Medic al MG tablet [address] atorvastati 2017-04 Yes 20mg QD Take [address] [facility] (LIPITOR) 1-15 by mouth Luke s 20 MG 18:18: daily. Medical tablet [address] [place] atorvastati 2017-04 Yes 20mg QD Take [address] (LIPITOR) 1-15 by mouth Luke s 20 MG 18:18: daily. Medical tablet [address] [place] lisinopril 2017-04 Yes 20mg QD Take [address] (PRINIVIL,Z 1-15 by mouth Luke s ESTRIL) 20 18:18: daily. Medic al MG tablet [address] Procedures This patient has no known procedures. Results Test Description Test Time Test Comments Results Result [facility] e Comments MYOCARD IMAGING, 2018-02-16 Reason for FINAL REPORT PATIENT MULTI, SPECT 16:41:00 exam:->Chest ID: [id number] Pain PROCEDURE: Rest/Stress MYOCARDIAL PERFUSION SPECT with treadmill\XA9\ CPT CODE: 78342 INDICATION: Chest pain, chronic, high probability of [...] Normal extracardiac tracer distribution. 6. No previous [facility] study for comparison. Signed: Ina Curtis MDReport Verified Date/Time: 02/16/2018 16:41:31 Reading Location: [address] Reading Room GLOBIN A1C 2018-02-16 11:58:00 Test Item Value Reference Range Interpretation Comme nts HEMOGLOBIN A1C (BEAKER) (test code = 368) 5.3 % 4.3-6.1 BASIC METABOLIC [id number] 06:49:00 Test Item Value Reference Range Interpretation [...] NOT APPLICABLE FOR DIALYSIS PATIEN TS. LIPID [id number] 06:49:00 Test Item Value Reference Range Interpretation [...] ng/mL 0.00-0.03 CBC W/PLT COUNT & AUTO [id number] 05:34:00 Test Item Value Reference Range Interpretation [...] PERCENT (BEAKER) (test code = 2801) TROPONIN [id number] 01:36:00 Test Item Value Reference Range Interpretation Comments TROPONIN I (BEAKER) (test code = 397) < ng/mL 0.00-0.03 [id number] 01:21:00 Test Item Value Reference Range Interpretation Comments POTASSIUM (BEAKER) (test code = 3.5 meq/L 3.5-5.1 379)
[2022-09-26 16:30] LABS: Absolute Lymphocytes (CBC) 1.6 K/uL (0.7-4.9); Hematocrit 41.5 % (36.0-45.0); Lymphocytes % 23.5 % (15.3-44.8); MCV 93.4 fL (80-100); MPV 8.4 fL (7.6-11.3); RBC Red Blood Cell Count 4.45 M/uL (3.86-4.86)
[2022-09-26] MEDS ORDERED: ASPIRIN EC 81 MG TAB PO ONE (16:33)
[2022-09-26] MEDS ORDERED: METOPROLOL TAR 25 MG TAB ONE (16:33)
--- NOTE | 2022-09-26 16:33 | RAD REPORT ---
EXAM DESCRIPTION: RAD - Chest Single View - 09/26/2022 4:17 pm CLINICAL HISTORY: PALPITATIONS Chest pain. COMPARISON: Chest Single View dated 05/25/2022; Chest Single View dated 11/23/2021; Chest Single View dated 06/15/2019; Chest Single View dated 12/13/2018 FINDINGS: Portable technique limits examination quality. The lungs are grossly clear. The heart is mildly enlarged in size. No displaced fractures.
[2022-09-26 16:55] LABS: Potassium 3.7 mEq/L (3.5-5.1); Troponin High Sensitivity 3.6 pg/mL (<58.9)
[2022-09-26 17:19] LABS: Protime INR 0.78
--- NOTE | 2022-09-26 18:23 | RAD REPORT ---
EXAM DESCRIPTION: CT - Chest For Pe Angio - 09/26/2022 6:12 pm CLINICAL HISTORY: Chest pain. PALPITATIONS COMPARISON: <Comparisons> TECHNIQUE: CT angiogram of the pulmonary arteries was performed with MIP. All CT scans are performed using dose optimization technique as appropriate and may include automated exposure control or mA/KV adjustment according to patient size. FINDINGS: No evidence of pulmonary thromboembolism. No acute aortic finding demonstrated. Mild interstitial pulmonary edema. No significant pericardial or pleural fluid. No concerning bony finding. IMPRESSION: No evidence of pulmonary thromboembolism. Mild interstitial pulmonary edema.
[2022-09-26 18:38] LABS: Specific Gravity 1.015 (1.005-1.030); Urine Bacteria None Seen /HPF (<20); Urine Bilirubin NEGATIVE (Negative); Urine Blood Negative (Negative); Urine Clarity Clear (Clear); Urine Color Colorless (Yellow); Urine Glucose NEGATIVE (Negative); Urine Protein NEGATIVE (Negative); Urine RBC <5 /HPF (None Seen); Urine Urobilinogen Normal (Normal); Urine pH 6.5 (5.0-7.0)
--- NOTE | 2022-09-26 21:00 | EDPHYS ---
Physician Documentation [facility] Name: Pallavi Jimenez Age: 62 yrs Sex: Female : 1960 Arrival Date: 09/26/2022 Time: 15:25 Bed 17 Private MD: Nancy Smith H ED Physician Davonte Rosario HPI: 09/26 15:45 This 62 yrs old Female presents to ER via Ambulatory with complaints of Palpitations, cp High Blood Pressure. 15:45 The patient presents with a history of irregular heart beat. cp 15:45 Context: The symptoms occur at rest. Onset: The symptoms/episode began/occurred this cp morning. Duration: The patient or guardian reports multiple episodes, that are intermittent, with no pattern. The patient has elevated blood pressure and discovered this at home, with a home device. Onset: The symptoms/episode began/occurred today. Associated signs and symptoms: Pertinent negatives: chest pain, vomiting, weakness, abdominal pain. Severity of symptoms: in the emergency department the blood pressure is unchanged, despite home interventions. Historical: - Allergies: 15:33 No Known Allergies; ll1 - PMHx: 15:33 Hyperlipidemia; Hypertension; ll1 - Immunization history:: Client reports having NOT received the Covid vaccine. - Social history:: Smoking status: Patient denies any tobacco usage or history of. ROS: 15:50 Constitutional: Negative for body aches, chills, fever, poor PO intake. cp 15:50 Cardiovascular: Positive for palpitations, Negative for chest pain, edema. cp 15:50 Eyes: Negative for injury, pain, redness, and discharge. cp 15:50 ENT: Negative for drainage from ear(s), ear pain, sore throat, difficulty swallowing, difficulty handling secretions. 15:50 Respiratory: Negative for cough, shortness of breath, wheezing. 15:50 Abdomen/GI: Negative for abdominal pain, vomiting, diarrhea, constipation. 15:50 Neuro: Negative for altered mental status, dizziness, headache, syncope, near syncope, weakness. 15:50 All other systems are negative. Exam: 15:55 ECG was reviewed by the Attending Physician. cp 15:58 Constitutional: The patient appears in no acute distress, alert, awake, cp non-diaphoretic, non-toxic, well developed, well nourished. 15:58 Head/Face: Normocephalic, atraumatic. cp 15:58 Eyes: Periorbital structures: appear normal, Conjunctiva: normal, no exudate, no injection, Sclera: no appreciated abnormality, Lids and lashes: appear normal, bilaterally. 15:58 ENT: External ear(s): are unremarkable, Nose: is normal, Mouth: Lips: moist, Oral mucosa: pink and intact, moist, Posterior pharynx: is normal, airway is patent, no erythema, no exudate. 15:58 Neck: ROM/movement: is normal, is supple, without pain, no range of motions limitations. 15:58 Chest/axilla: Inspection: normal. 15:58 Cardiovascular: Rate: normal, Rhythm: regular, Edema: is not appreciated, JVD: is not appreciated. 15:58 Respiratory: the patient does not display signs of respiratory distress, Respirations: normal, no use of accessory muscles, no retractions, labored breathing, is not present, Breath sounds: are clear throughout, no decreased breath sounds, no stridor, no wheezing. 15:58 Abdomen/GI: Inspection: abdomen appears normal, Palpation: abdomen is soft and non-tender, in all quadrants. 15:58 Back: pain, is absent, ROM is normal. 15:58 Neuro: Orientation: to person, place \T\ time. Mentation: is normal, Cerebellar function: is grossly normal, Motor: moves all fours, strength is normal, Sensation: is normal. 19:33 ECG was reviewed by the Attending Physician. cp Vital Signs: 15:34 BP 169 / 105; Pulse 83; Resp 15; Temp 98.7; Pulse Ox 97% on R/A; Weight 70.31 kg; ll1 Height 5 ft. 4 in. ; Pain 0/10; 17:14 BP 142 / 69; Pulse 71; Resp 16; Pulse Ox 97% ; bp 18:28 BP 157 / 98; Pulse 75; Resp 16; Pulse Ox 98% ; bp 20:03 BP 139 / 89; Pulse 63; Resp 17 S; Pulse Ox 99% on R/A; lg3 21:16 BP 137 / 84; Pulse 61; Resp 17 S; Pulse Ox 99% on R/A; lg3 15:34 Body Mass Index 26.61 (70.31 kg, 162.56 cm) ll1 15:34 Pain Scale: Adult ll1 MDM: 15:36 Patient medically screened. cp 16:00 Differential diagnosis: arrythmia, dehydration, stress disorder, hypertensive crisis, cp Malignant HTN. 20:58 Data reviewed: vital signs, nurses notes, lab test result(s), EKG, radiologic studies, cp CT scan, plain films. 20:58 Consideration of Admission/Observation Escalation of care including cp admission/observation considered. I considered the following discharge prescriptions or medication management in the emergency department Medications were administered in the Emergency Department. See MAR. Care significantly affected by the following chronic conditions: Hypertension. Counseling: I had a detailed discussion with the patient and/or guardian regarding: the historical points, exam findings, and any diagnostic results supporting the discharge/admit diagnosis, lab results, radiology results, the need for outpatient follow up, a physician general internal medicine, to return to the emergency department if symptoms worsen or persist or if there are any questions or concerns that arise at home. Response to treatment: the patient's symptoms have markedly improved after treatment, and as a result, I will discharge patient. 09/26 15:44 Order name: Basic Metabolic Panel; Complete Time: 17:17 cp 09/26 17:18 Interpretation: Normal except: NA 132; BUN 6. cp 09/26 15:44 Order name: CBC with Diff; Complete Time: 17:17 cp 09/26 15:44 Order name: D-Dimer; Complete Time: 20:54 cp 09/26 15:44 Order name: Magnesium; Complete Time: 17:17 cp 09/26 15:44 Order name: NT PRO-BNP; Complete Time: 17:17 cp 09/26 15:44 Order name: PT-INR; Complete Time: 20:54 cp 09/26 15:44 Order name: Troponin HS; Complete Time: 17:17 cp 09/26 15:44 Order name: Urinalysis W/Microscopic; Complete Time: 19:06 cp 09/26 19:06 Order name: Troponin HS; Complete Time: 20:54 cp 09/26 15:44 Order name: XRAY Chest (1 view); Complete Time: 17:17 cp 09/26 17:45 Order name: CT Chest For PE Angio; Complete Time: 19:06 cp 09/26 15:44 Order name: EKG; Complete Time: 15:45 cp 09/26 15:44 Order name: Cardiac monitoring; Complete Time: 15:57 cp 09/26 15:44 Order name: EKG - Nurse/Tech; Complete Time: 15:57 cp 09/26 15:44 Order name: IV Saline Lock; Complete Time: 16:12 cp 09/26 15:44 Order name: Labs collected and sent; Complete Time: 16:12 cp 09/26 15:44 Order name: O2 Per Protocol; Complete Time: 15:57 cp 09/26 15:44 Order name: O2 Sat Monitoring; Complete Time: 15:57 cp 09/26 19:06 Order name: EKG - Nurse/Tech; Complete Time: 19:21 cp EC:55 Rate is 80 beats/min. Rhythm is regular. MT interval is normal. QRS interval is normal. cp QT interval is normal. T waves are Inverted in lead aVR. Interpreted by me. Reviewed by me. 19:33 Rate is 70 beats/min. Rhythm is regular. MT interval is normal. QRS interval is normal. cp QT interval is normal. T waves are Inverted in lead aVR. Interpreted by me. Reviewed by me. 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): Aspirin PO Chewable Tablet 324 mg PO once; 81 mg tablets x 4 bp 16:40 Drug: Metoprolol PO 25 mg Route: PO; bp 20:08 Follow up: Response: No adverse reaction; Marked relief of symptoms; Blood pressure is lg3 lowered Disposition Summary: 09/26/22 20:59 Discharge Ordered Location: Home cp Problem: new cp Symptoms: have improved cp Condition: Stable cp Diagnosis - Palpitations cp - Hypertensive heart disease without heart failure cp Followup: cp - With: Gennaro Mac MD - When: 1 week - Reason: Recheck today's complaints Discharge Instructions: - Discharge Summary Sheet cp - Hypertension, Adult cp - Palpitations cp - Aspirin and Your Heart cp - Form - Blood Pressure Record Sheet cp - Ambulatory Cardiac Monitoring cp - How to Take Your Blood Pressure cp Forms: - Medication Reconciliation Form cp - Thank You Letter cp - Antibiotic Education cp - Prescription Opioid Use cp Signatures: Dispatcher [employer] EDMS James Amaya FNP-C SECURITY ANALYST-Cla1 Davonte Rodrigues PA PA cp Tyler Jewell RN RN bp Keely Hawikns RN RN ll1 Anna Weinberg RN lg3
--- NOTE | 2022-09-26 21:00 | ER ---
Nurse's Notes [facility] Name: Pallavi Jimenez Age: 62 yrs Sex: Female : 1960 Arrival Date: 09/26/2022 Time: 15:25 Bed 17 Private MD: Nancy Smith H Diagnosis: Palpitations;Hypertensive heart disease without heart failure Presentation: 09/26 15:34 Chief complaint: Patient states: Palpitations and elevated BP started today. No pain, ll1 but noticed L arm feels tingly at times. Coronavirus screen: Vaccine status: Patient reports being unvaccinated. Client denies travel out of the [place] in the last 14 days. At this time, the client does not indicate any symptoms associated with coronavirus-19. Ebola Screen: Patient denies travel to an Ebola-affected area in the 21 days before illness onset. Initial Sepsis Screen: Does the patient meet any 2 criteria? No. Patient's initial sepsis screen is negative. Does the patient have a suspected source of infection? No. Patient's initial sepsis screen is negative. Risk Assessment: Do you want to hurt yourself or someone else? Patient reports no desire to harm self or others. Onset of symptoms was September 26, 2022. 15:34 Method Of Arrival: Ambulatory ll1 15:34 Acuity: JENNY 2 ll1 Triage Assessment: 15:35 General: Appears uncomfortable, Behavior is calm, cooperative, appropriate for age. ll1 Pain: Denies pain. Cardiovascular: Reports palpitations. Musculoskeletal: Reports numbness in left arm. Historical: - Allergies: 15:33 No Known Allergies; ll1 - PMHx: 15:33 Hyperlipidemia; Hypertension; ll1 - Immunization history:: Client reports having NOT received the Covid vaccine. - Social history:: Smoking status: Patient denies any tobacco usage or history of. Screenin:14 [place] ED Fall Risk Assessment (Adult) History of falling in the last 3 months, bp including since admission No falls in past 3 months (0 pts). Abuse screen: Denies threats or abuse. Denies injuries from another. Nutritional screening: No deficits noted. Tuberculosis screening: No symptoms or risk factors identified. Assessment: 15:45 General: SEE TRIAGE NOTE. bp 17:14 Reassessment: Patient appears in no apparent distress at this time. Patient is alert, bp oriented x 3, equal unlabored respirations, skin warm/dry/pink. 18:28 Reassessment: PT RETURNED FROM CT. bp 20:03 General: Appears in no apparent distress. comfortable. General: Behavior is calm, lg3 cooperative. Pain: Denies pain. Neuro: No deficits noted. Ritchie Agitation-Sedation Scale (RASS): 0 - Alert and Calm Level of Consciousness is awake, alert, obeys commands, Oriented to person, place, time, situation. Cardiovascular: No deficits noted. Denies chest pain, shortness of breath, Capillary refill < 3 seconds Clubbing of nail beds is absent JVD is absent Patient's skin is warm and dry. Respiratory: No deficits noted. Airway is patent Trachea midline Respiratory effort is even, unlabored, Respiratory pattern is regular, symmetrical. GI: No deficits noted. No signs and/or symptoms were reported involving the gastrointestinal system. Abdomen is round non-distended. : No deficits noted. No signs and/or symptoms were reported regarding the genitourinary system. EENT: No deficits noted. No signs and/or symptoms were reported regarding the EENT system. Derm: No deficits noted. No signs and/or symptoms reported regarding the dermatologic system. Skin is intact, is healthy with good turgor, Skin is dry, Skin is normal, Skin temperature is warm. Musculoskeletal: No deficits noted. No signs and/or symptoms reported regarding the musculoskeletal system. Circulation, motion, and sensation intact. Range of motion: intact in all extremities. 21:16 Reassessment: Patient appears in no apparent distress at this time. No changes from lg3 previously documented assessment. Patient and/or family updated on plan of care and expected duration. Pain level reassessed. Patient is alert, oriented x 3, equal unlabored respirations, skin warm/dry/pink. Patient denies pain at this time. Patient states feeling better. Patient states symptoms have improved. Vital Signs: 15:34 BP 169 / 105; Pulse 83; Resp 15; Temp 98.7; Pulse Ox 97% on R/A; Weight 70.31 kg; ll1 Height 5 ft. 4 in. ; Pain 0/10; 17:14 BP 142 / 69; Pulse 71; Resp 16; Pulse Ox 97% ; bp 18:28 BP 157 / 98; Pulse 75; Resp 16; Pulse Ox 98% ; bp 20:03 BP 139 / 89; Pulse 63; Resp 17 S; Pulse Ox 99% on R/A; lg3 21:16 BP 137 / 84; Pulse 61; Resp 17 S; Pulse Ox 99% on R/A; lg3 15:34 Body Mass Index 26.61 (70.31 kg, 162.56 cm) ll1 15:34 Pain Scale: Adult ll1 ED Course: 15:27 Patient arrived in ED. am2 15:27 Nancy Smith DO is Private Physician. am2 15:33 Arm band placed on Patient placed in an exam room, on a stretcher. ll1 15:35 Triage completed. ll1 15:35 Davonte Rodrigues PA is PHCP. cp 15:35 Davonte Rosario MD is Attending Physician. cp 15:57 Tyler Jewell, SHERINE is Primary Nurse. bp 16:19 XRAY Chest (1 view) In Process Unspecified. EDMS 16:30 Inserted saline lock: 20 gauge in right antecubital area, using aseptic technique. bp 17:14 Patient has correct armband on for positive identification. Bed in low position. Call bp light in reach. Side rails up X2. Adult w/ patient. 18:14 CT Chest For PE Angio In Process Unspecified. EDMS 20:03 Client placed on continuous cardiac and pulse oximetry monitoring. NIBP monitoring lg3 applied. residential monitor on. Door closed. Noise minimized. Warm blanket given. Family accompanied patient. 20:16 Troponin HS Sent. lg3 20:59 Gennaro Mac MD is Referral Physician. cp 21:16 No provider procedures requiring assistance completed. IV discontinued, intact, lg3 bleeding controlled, No redness/swelling at site. Pressure dressing applied. 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 bp Outcome: 20:59 Discharge ordered by . cp 21:16 Discharged to home ambulatory. lg3 21:16 Condition: stable 21:16 Discharge instructions given to patient, Instructed on discharge instructions, follow up and referral plans. Demonstrated understanding of instructions, follow-up care. 21:17 Patient left the ED. lg3 Signatures: Dispatcher [employer] EDMS Davonte Rodrigues PA PA cp Moreno, Amanda am2 Peltier, Brian, RN RN bp Anna Weinberg RN RN lg3 Keely Hawkins RN RN ll1
[2022-09-26 21:46] VITALS: TEMP 98.7
[2022-09-26 21:52] VITALS: O2SAT 99
[2022-09-26 21:54] VITALS: BP 137/84
--- NOTE | 2022-09-27 17:11 | EKG ---
Test Date: 2022-09-26 Test Time: 19:28:18 Bankruptcy Legal Assistant: ALIVIA MEASUREMENT RESULTS: Intervals: Rate: 70 VT: 168 QRSD: 82 QT: 382 QTc: 412 [place]: P: 60 VT: 168 QRS: 52 T: 57 INTERPRETIVE STATEMENTS: Normal sinus rhythm Normal ECG Compared to ECG 05/25/2022 12:40:31 No significant changes Electronically Signed On 09-27-22 17:09:54 CDT by Gennaro Mac
--- NOTE | 2022-09-27 17:12 | EKG ---
Test Date: 2022-09-26 Test Time: 15:48:49 Welding Supervisor: EPHRAIM MEASUREMENT RESULTS: Intervals: Rate: 80 WV: 160 QRSD: 86 QT: 358 QTc: 412 [place]: P: 62 WV: 160 QRS: 66 T: 58 INTERPRETIVE STATEMENTS: Sinus rhythm with premature atrial complexes Otherwise normal ECG Compared to ECG 05/25/2022 12:40:31 Atrial premature complex(es) now present Electronically Signed On 09-27-22 17:10:01 CDT by Gennaro Mac
== END 2022-09-26 21:17 | disposition home or self-care (01) ==
LOC: ER 15:25
DX: R00.2 Palpitations (principal); I11.9 Hypertensive heart disease without heart failure; I10 Essential (primary) hypertension; E78.5 Hyperlipidemia, unspecified
CPT/HCPCS: 93005 ×2; 85025; 81001; 80048; 36415; 83735; 85610; 85379; 84484 ×2; 83880; 71275; 71045; 99284; Q9967

== ENCOUNTER → 2023-04-12 | Emergency (ER) | payer BC ==
[~2023-04-12] MED LIST: KETOROLAC 30 MG/ML INJ ONE
[2023-04-12 15:48] LABS: Absolute Lymphocytes (CBC) 2.2 K/uL (0.7-4.9); Hematocrit 40.6 % (36.0-45.0); Lymphocytes % 30.2 % (15.3-44.8); MCV 94.1 fL (80-100); MPV 8.3 fL (7.6-11.3); Platelets 240 thou/uL (152-406); RBC Red Blood Cell Count 4.31 M/uL (3.86-4.86)
[2023-04-12 15:56] LABS: Albumin 3.9 g/dL (3.4-5.0); Protein, Total 7.6 g/dL (6.4-8.2)
[2023-04-12 15:58] LABS: Specific Gravity < 1.005 (1.005-1.030); Urine Bilirubin NEGATIVE (Negative); Urine Blood Negative (Negative); Urine Clarity Clear (Clear); Urine Color Colorless (Yellow); Urine Glucose NEGATIVE (Negative); Urine Protein NEGATIVE (Negative); Urine Urobilinogen Normal (Normal); Urine pH 5.5 (5.0-7.0)
--- NOTE | 2023-04-12 16:39 | EDPHYS ---
Physician Documentation [facility] Name: Pallavi Jimenez Age: 62 yrs Sex: Female : 1960 Arrival Date: 04/12/2023 Time: 14:40 Bed 11 Private MD: ED Physician Ana Laura Jennings HPI: 04/12 16:31 This 62 yrs old Female presents to ER via Ambulatory with complaints of LEFT gb1 SIDE PAIN. 16:31 Patient is here with left side pain right underneath her breast, ribs very tender. She gb1 denies any trauma but she does report overstretching and then having pain in that area. The pain is intermittent and it is worse with movement.. Historical: - Allergies: 14:43 No Known Allergies; iw - PMHx: 14:43 Hyperlipidemia; Hypertension; iw - Immunization history:: Adult Immunizations up to date. - Social history:: Smoking status: Patient denies any tobacco usage or history of. ROS: 16:31 Abdomen/GI: Positive for Left side pain anterior chest wall under her left breast. The gb1 area of the rib bone is tender., 16:31 All other systems are negative, Exam: 16:31 Constitutional: This is a well developed, well nourished patient who is awake, alert, gb1 and in no acute distress. Head/Face: Normocephalic, atraumatic. Eyes: Pupils equal round and reactive to light, extra-ocular motions intact. Lids and lashes normal. Conjunctiva and sclera are non-icteric and not injected. Cornea within normal limits. Periorbital areas with no swelling, redness, or edema. ENT: Nares patent. No nasal discharge, no septal abnormalities noted. Tympanic membranes are normal and external auditory canals are clear. Oropharynx with no redness, swelling, or masses, exudates, or evidence of obstruction, uvula midline. Mucous membranes moist. Neck: Trachea midline, no thyromegaly or masses palpated, and no cervical lymphadenopathy. Supple, full range of motion without nuchal rigidity, or vertebral point tenderness. No Meningismus. Cardiovascular: Regular rate and rhythm with a normal S1 and S2. No gallops, murmurs, or rubs. Normal PMI, no JVD. No pulse deficits. Respiratory: Lungs have equal breath sounds bilaterally, clear to auscultation and percussion. No rales, rhonchi or wheezes noted. No increased work of breathing, no retractions or nasal flaring. Abdomen/GI: Soft, non-tender, with normal bowel sounds. No distension or tympany. No guarding or rebound. No evidence of tenderness throughout. Back: No spinal tenderness. No costovertebral tenderness. Full range of motion. Skin: Warm, dry with normal turgor. Normal color with no rashes, no lesions, and no evidence of cellulitis. MS/ Extremity: Pulses equal, no cyanosis. Neurovascular intact. Full, normal range of motion. Neuro: Awake and alert, GCS 15, oriented to person, place, time, and situation. Cranial nerves II-XII grossly intact. Motor strength 5/5 in all extremities. Sensory grossly intact. Cerebellar exam normal. Normal gait. Psych: Awake, alert, with orientation to person, place and time. Behavior, mood, and affect are within normal limits. 16:31 Chest/axilla: Exam negative for Inspection: no acute changes, abrasion, cellulitis, paradoxical chest wall movements, rash, Palpation: Axilla: no acute changes, Lymph nodes: Mid anterior chest wall at the nipple line right under the left breast is very tender on the rib bone. There is no step-off or signs of rash or skin irritation.. Vital Signs: 14:49 BP 164 / 88; Pulse 97; Resp 16; Temp 97.1; Pulse Ox 98% ; Weight 72.57 kg; Height 5 ft. ll1 4 in. ; Pain 7/10; 16:55 BP 147 / 76; Pulse 90; Resp 18 S; Pulse Ox 99% on R/A; kc6 14:49 Body Mass Index 27.46 (72.57 kg, 162.56 cm) ll1 14:49 Pain Scale: Adult ll1 MDM: 14:49 Patient medically screened. gb1 16:31 Differential diagnosis: arthritis, Basilar Pneumonia sprain, Rib contusion, anterior gb1 chest wall muscle strain. Data reviewed: vital signs, nurses notes. 04/12 14:50 Order name: CBC with Diff; Complete Time: 15:59 gb1 04/12 14:50 Order name: CMP; Complete Time: 15:59 gb1 04/12 14:50 Order name: Lipase; Complete Time: 15:59 gb1 04/12 14:50 Order name: Urinalysis w/ reflexes; Complete Time: 15:59 gb1 04/12 14:50 Order name: IV Saline Lock; Complete Time: 15:54 gb1 04/12 14:50 Order name: Labs collected and sent; Complete Time: 15:31 gb1 Administered Medications: 15:57 Drug: Ketorolac IVP 30 mg IVP once Route: IVP; Site: left wrist; kc6 16:43 Follow up: Response: No adverse reaction; Pain is decreased kc6 Disposition: 16:46 Chart complete. gb1 Disposition Summary: 04/12/23 16:38 Discharge Ordered Notes: Location: Home gb1 Problem: new gb1 Symptoms: have improved gb1 Condition: Stable gb1 Diagnosis - Strain of muscle and tendon of thorax gb1 Followup: gb1 - With: Private Physician - When: - Reason: Re-evaluation by your physician Discharge Instructions: - Discharge Summary Sheet gb1 - Chest Wall Pain, [id number] gb1 Forms: - Medication Reconciliation Form gb1 - Thank You Letter gb1 - Antibiotic Education gb1 - Prescription Opioid Use gb1 - Patient Portal Instructions gb1 - Leadership Thank You Letter gb1 Signatures: Dispatcher [employer] Joanne Harding, SHERINE BASURTO iw Keely Hawkins RN RN ll1 Pham Huang RN RN kc6 Ana Laura Jennings MD MD gb1
--- NOTE | 2023-04-12 16:39 | ER ---
Nurse's Notes [facility] Name: Pallavi Jimenez Age: 62 yrs Sex: Female : 1960 Arrival Date: 04/12/2023 Time: 14:40 Bed 11 Private MD: Diagnosis: Strain of muscle and tendon of thorax Presentation: 04/12 14:49 Chief complaint: Patient states: [place] a pop to L flank area 03/26 after bending and ll1 twisting in a chair. Pain started the next day. + nausea. Pain is severe today. Coronavirus screen: Client denies travel out of the [place] in the last 14 days. At this time, the client does not indicate any symptoms associated with coronavirus-19. Ebola Screen: Patient denies travel to an Ebola-affected area in the 21 days before illness onset. Initial Sepsis Screen: Does the patient meet any 2 criteria? HR > 90 bpm. No. Patient's initial sepsis screen is negative. Does the patient have a suspected source of infection? No. Patient's initial sepsis screen is negative. Risk Assessment: Do you want to hurt yourself or someone else? Patient reports no desire to harm self or others. Onset of symptoms was March 27, 2023. 14:49 Method Of Arrival: Ambulatory ll1 14:49 Acuity: JENNY 3 ll1 Historical: - Allergies: 14:43 No Known Allergies; iw - PMHx: 14:43 Hyperlipidemia; Hypertension; iw - Immunization history:: Adult Immunizations up to date. - Social history:: Smoking status: Patient denies any tobacco usage or history of. Screenin:[facility] ED Fall Risk Assessment (Adult) History of falling in the last 3 months, kc6 including since admission No falls in past 3 months (0 pts) Confusion or Disorientation No (0 pts) Intoxicated or Sedated No (0 pts) Impaired Gait No (0 pts) Mobility Assist Device Used No (0 pt) Altered Elimination No (0 pt) Score/Fall Risk Level 0 - 2 = Low Risk. Abuse screen: Denies threats or abuse. Denies injuries from another. Nutritional screening: No deficits noted. Tuberculosis screening: No symptoms or risk factors identified. Assessment: 16:00 General: Appears in no apparent distress. comfortable, Behavior is calm, cooperative, kc6 appropriate for age. Neuro: Level of Consciousness is awake, alert, obeys commands, Oriented to person, place, time, situation, Appropriate for age. Cardiovascular: Capillary refill < 3 seconds. Respiratory: Airway is patent Trachea midline Respiratory effort is even, unlabored, Respiratory pattern is regular, symmetrical. GI: Reports nausea, Patient currently denies abdominal pain, constipation, diarrhea, vomiting. : No signs and/or symptoms were reported regarding the genitourinary system. Urine is clear. EENT: No signs and/or symptoms were reported regarding the EENT system. Derm: No signs and/or symptoms reported regarding the dermatologic system. Skin is intact, is healthy with good turgor, Skin is pink, warm \T\ dry. Musculoskeletal: No signs and/or symptoms reported regarding the musculoskeletal system. Circulation, motion, and sensation intact. Capillary refill < 3 seconds, Range of motion: intact in all extremities. Vital Signs: 14:49 BP 164 / 88; Pulse 97; Resp 16; Temp 97.1; Pulse Ox 98% ; Weight 72.57 kg; Height 5 ft. ll1 4 in. ; Pain 7/10; 16:55 BP 147 / 76; Pulse 90; Resp 18 S; Pulse Ox 99% on R/A; kc6 14:49 Body Mass Index 27.46 (72.57 kg, 162.56 cm) ll1 14:49 Pain Scale: Adult ll1 ED Course: 14:43 Patient arrived in ED. kj1 14:44 Arm band placed on. iw 14:49 Ana Laura Jennings MD is Attending Physician. gb1 14:51 Triage completed. ll1 15:17 Pham Huang, RN is Primary Nurse. kc6 15:32 Missed attempt(s): 20 gauge in right antecubital area. Missed attempt(s): 22 gauge in kc6 left antecubital area. 15:59 Patient has correct armband on for positive identification. Bed in low position. Call kc6 light in reach. Side rails up X 1. Adult w/ patient. Client placed on continuous cardiac and pulse oximetry monitoring. NIBP monitoring applied. 15:59 Inserted saline lock: 22 gauge in left wrist, using aseptic technique. Patient kc6 maintains SpO2 saturation greater than 95% on room air. 16:56 No provider procedures requiring assistance completed. IV discontinued, intact, kc6 bleeding controlled, No redness/swelling at site. Pressure dressing applied. Administered Medications: 15:57 Drug: Ketorolac IVP 30 mg IVP once Route: IVP; Site: left wrist; kc6 16:43 Follow up: Response: No adverse reaction; Pain is decreased kc6 Medication: 16:56 VIS not applicable for this client. kc6 Outcome: 16:38 Discharge ordered by . inge 16:56 Discharged to home ambulatory, with significant other, kc6 16:56 Condition: good 16:56 Discharge instructions given to patient, Instructed on discharge instructions, follow up and referral plans. Demonstrated understanding of instructions, follow-up care, 16:56 Patient left the ED. kc6 Signatures: Joanne Bernardo, RN RN Sabina Lin kj1 Keely Hawkins RN RN ll1 Pham Huang RN RN kc6 Ana Laura Jennings MD MD gb1
[2023-04-12 19:29] VITALS: BP 147/76; TEMP 97.1; O2SAT 99
== END ==
LOC: ER 14:40
DX: S29.011A Strain of muscle and tendon of front wall of thorax, initial encounter (principal); I10 Essential (primary) hypertension; E78.5 Hyperlipidemia, unspecified
CPT/HCPCS: 36415; 80053; 81003; 83690; 85025; 96374; 99284